=== PATIENT | female | born 1970 | race Caucasian/White ===

== ENCOUNTER → 2017-02-27 | Outpatient (CLI) | payer OTHER ==
--- NOTE | 2017-02-27 23:14 | MR ---
EXAMINATION TYPE: MR lumbar spine wo con DATE OF EXAM: 02/27/2017 COMPARISON: NONE HISTORY: Low back pain, Left leg/foot numbness TECHNIQUE: Multiplanar, multisequence images of the lumbar spine were acquired. The lumbar vertebra have normal alignment. Disc spaces are fairly well-maintained. There is slight de creased signal in the disks from L3 to S1 without significant loss of height. There is a small powder blender ior disc bulge at L4-5 and L5-S1 without compromise of the spinal canal. There is developmentally luci quate canal and no evidence of spinal stenosis. There is small posterior disc herniation at T11-12 wi thout compromise of the spinal canal. There is no paraspinal mass. Sacroiliac joints are intact. Ther e is no sign of a fracture. The neural foramina are fairly well-maintained. IMPRESSION: Mild spondylotic changes. No fracture. No spinal stenosis.
== END | disposition home or self-care (01) ==
LOC: RADMRIMAIN 13:08
PROVIDERS: ATTEND Family Medicine
DX: M47.816 Spondylosis without myelopathy or radiculopathy, lumbar region (principal)
CPT/HCPCS: 72148

== ENCOUNTER → 2017-11-17 | Outpatient (CLI) | payer OTHER ==
--- NOTE | 2017-11-17 19:32 | US ---
EXAMINATION TYPE: US pelvic complete DATE OF EXAM: 11/17/2017 COMPARISON: NONE CLINICAL HISTORY: R10.32 Left low quad pain, R10.2 Pelvic pain. TECHNIQUE: Transabdominal (TA). Date of LMP: 10/30/2017 EXAM MEASUREMENTS: Uterus: 11.9 x 5.8 x 6.2 cm Endometrial Stripe: 1.2 cm Right Ovary: 3.3 x 2.4 x 3.7 cm Left Ovary: 4.3 x 2.8 x 5.2 cm 1. Uterus: Anteverted wnl 2. Endometrium: wnl 3. Right Ovary: wnl 4. Left Ovary: 2 side by side cysts, one measures 2.7 x 2.2 x 2.2, and the second measures 2.4 x 1. 7 x 1.7cm. 6. Posterior cul-de-sac: no free fluid IMPRESSION: Normal uterus and endometrium. Simple left ovarian cysts.
== END | disposition home or self-care (01) ==
LOC: RADUSMAIN 18:00
PROVIDERS: ATTEND Physician Assistant Medical
DX: N83.202 Unspecified ovarian cyst, left side (principal)
CPT/HCPCS: 76856

== ENCOUNTER → 2018-01-12 | Outpatient (CLI) | payer OTHER ==
--- NOTE | 2018-01-14 12:48 | US ---
EXAMINATION TYPE: US pelvic complete DATE OF EXAM: 01/12/2018 COMPARISON: Ultrasound 11/17/2017 CLINICAL HISTORY: N83.20 Unspecified Ovarian Cysts. f/u to previous left ovarian cysts seen 8 weeks a go, bilateral pelvic pain today TECHNIQUE: TA. Transabdominal sonographic images of the pelvis were acquired. Date of LMP: 12/25/2017 EXAM MEASUREMENTS: Uterus: 10.7 x 5.5 x 5.5 cm Endometrial Stripe: 1.0 cm Right Ovary: 3.2 x 2.7 x 3.1 cm Left Ovary: 4.1 x 4.2 x 3.3 cm 1. Uterus: Anteverted wnl 2. Endometrium: wnl 3. Right Ovary: 2.5cm cyst seen. This is newly identified. 4. Left Ovary: 2.8cm cyst seen. This appears less complex and smaller than the comparison. 5. Bilateral Adnexa: wnl 6. Posterior cul-de-sac: wnl IMPRESSION: 1. Bilateral simple ovarian cysts. Follow-up following the next normal menstrual period or 6 weeks is recommended to document resolution.
== END | disposition home or self-care (01) ==
LOC: RADUSMAIN 17:45
PROVIDERS: ATTEND Family Medicine
DX: N83.292 Other ovarian cyst, left side (principal); N83.291 Other ovarian cyst, right side
CPT/HCPCS: 76856

== ENCOUNTER 2019-11-24 20:54 | Inpatient (IN) | payer OTHER ==
[2019-11-24 20:59] LABS: Glucose,Whole Blood 105 mg/dL (75-99)
--- NOTE | 2019-11-24 21:13 | ED ---
General Adult HPI - General Source: patient, EMS Mode of arrival: EMS <MaryJoshSeveriano D - Last Filed: 11/24/19 23:07> <Aye Almaraz P - Last Filed: 11/25/19 04:24> - General Chief complaint: Abdominal Pain Stated complaint: Abd Pain, Low BP Time Seen by Provider: 11/24/19 21:07 - History of Present Illness Initial comments: Dictation was produced using [employer] [place] dictation software. please excuse any grammatical, word or spelling errors. This patient was cared for during a federal and state declared state of emergency secondary to Covid 19 Chief Complaint: 49-year-old female in no known comorbidities presents with a bdominal pain and hypotension. History of Present Illness: 49-year-old female she denies any comorbidities. Patient states she was getting into her truck approximately one hour prior to arrival when all of a sudden she felt sharp epigastric abdominal pain. Patient states that the pain did not radiate to her back. She tried to step outside walk around and see if her symptoms would go away. Symptoms did not improve. She called EMS. EMS checked her blood pressures found to be low with multiple measurements reading in the 60-70 range for systolic measurement. She was given multiple boluses of fluid with improvement of blood pressure. Patient reports she has a history of gastritis. She states that the pain is epigastric. Denies any nausea or vomiting. She is never express anything like this in the past. The ROS documented in this emergency department record has been reviewed and confirmed by me. Those systems with pertinent positive or negative responses have been documented in the HPI. All other systems are other negative and/or noncontributory. PHYSICAL EXAM: General Impression: Alert and oriented x3, not in acute distress HEENT: Normocephalic atraumatic, extra-ocular movements intact, pupils equal and reactive to light bilaterally, mucous membranes moist. Cardiovascular: Heart regular rate and rhythm Chest: Able to complete full sentences, no retractions, no tachypnea Abdomen: abdomen soft, mild tenderness to palpation of the epigastric area, non- distended, no organomegaly Musculoskeletal: Pulses present and equal in all extremities, no peripheral edema Motor: no focal deficits noted Neurological: CN II-XII grossly intact, no focal motor or sensory deficits noted Skin: Intact with no visualized rashes Psych: Normal affect and mood ED course: 49-year-old female presents with abdominal pain and hypotension. Signs upon arrival showed blood pressure 120/76, rest of vital signs within acceptable limits. She did receive 2 L of normal saline per EMS. Patient's belly is for the most part soft. No evidence of peritonitis. Her symptoms appear to be only in the epigastric area. EKGs benign. Laboratory evaluation obtained. CBC is unremarkable. Mild anemia of 10.5. Coag panel is negative. Metabolic panel shows mild non-gap acidosis. Elevated liver enzymes concerning for alcoholism. Patient was questioned about alcohol habits. She states she's been drinking a lot more recently for social reasons. Pending radiology read for CT of the abdomen and pelvis. Patient care of be signed out to Dr. Almaraz. I believe that patient's symptoms are likely secondary to gastritis. Patient given a GI cocktail. EKG interpretation: Ventricular rate 40, sinus bradycardia,. 132, QRS 90, QTC 402. No ND prolongation, no QTC prolongation, no ST or T-wave changes noted. No old EKG for comparison. Overall, this EKG is unremarkable (Severiano Hernandez) - Related Data Allergies Allergy/AdvReac Type Severity Reaction Status Date / Time No Known Allergies Allergy Verified 11/24/19 21:04 Review of Systems ROS Other: All systems not noted in ROS Statement are negative. <Sveeriano Hernandez - Last Filed: 11/24/19 23:07> ROS Other: All systems not noted in ROS Statement are negative. <Aye Almaraz - Last Filed: 11/25/19 04:24> ROS Statement: Those systems with pertinent positive or pertinent negative responses have been documented in the HPI. Past Medical History Past Medical History: GERD/Reflux, Thyroid Disorder History of Any Multi-Drug Resistant Organisms: None Reported Past Surgical History: No Surgical Hx Reported Past Psychological History: No Psychological Hx Reported Smoking Status: Never smoker Past Alcohol Use History: Occasional Past Drug Use History: None Reported <Severiano Hernandez - Last Filed: 11/24/19 23:07> Course Vital Signs 11/24/19 11/24/19 11/24/19 20:59 21:06 21:11 Temperature 97.6 F Pulse Rate 48 L 73 59 L Pulse Rate [ Apical] Respiratory 16 14 14 Rate Blood Pressure 127/72 120/76 112/73 O2 Sat by Pulse 100 100 100 Oximetry 11/24/19 11/24/19 11/24/19 21:32 22:12 23:14 Temperature 98.3 F 98.1 F Pulse Rate 73 66 60 Pulse Rate [ Apical] Respiratory 14 14 18 Rate Blood Pressure 112/73 117/75 109/69 O2 Sat by Pulse 100 100 95 Oximetry 11/25/19 11/25/19 11/25/19 00:00 00:02 00:07 Temperature Pulse Rate 40 L 60 Pulse Rate [ 52 L Apical] Respiratory 26 H 24 Rate Blood Pressure 99/83 91/62 O2 Sat by Pulse 100 100 Oximetry 11/25/19 11/25/19 11/25/19 00:30 00:38 00:49 Temperature Pulse Rate 45 L 43 L 41 L Pulse Rate [ Apical] Respiratory 26 H 14 18 Rate Blood Pressure 98/83 82/57 78/52 O2 Sat by Pulse 100 96 97 Oximetry 11/25/19 11/25/19 11/25/19 01:02 01:15 01:30 Temperature Pulse Rate 40 L 44 L 38 L Pulse Rate [ Apical] Respiratory 16 18 14 Rate Blood Pressure 77/54 77/51 79/53 O2 Sat by Pulse 98 94 L 100 Oximetry 11/25/19 11/25/19 11/25/19 01:39 01:43 01:48 Temperature Pulse Rate 37 L 36 L 36 L Pulse Rate [ Apical] Respiratory 12 16 12 Rate Blood Pressure 88/58 99/59 109/67 O2 Sat by Pulse 100 100 97 Oximetry 11/25/19 11/25/19 11/25/19 02:05 02:11 02:20 Temperature Pulse Rate 38 L 68 68 Pulse Rate [ Apical] Respiratory 16 16 16 Rate Blood Pressure 104/48 121/66 139/77 O2 Sat by Pulse 96 100 98 Oximetry 11/25/19 11/25/19 11/25/19 02:30 02:35 02:40 Temperature Pulse Rate 75 70 70 Pulse Rate [ Apical] Respiratory 16 15 12 Rate Blood Pressure 127/75 147/87 90/48 O2 Sat by Pulse 98 98 98 Oximetry 11/25/19 11/25/19 11/25/19 02:45 02:52 03:09 Temperature 98.5 F Pulse Rate 77 70 66 Pulse Rate [ Apical] Respiratory 14 14 16 Rate Blood Pressure 91/70 121/61 114/58 O2 Sat by Pulse 98 98 97 Oximetry 11/25/19 11/25/19 11/25/19 03:26 03:34 03:40 Temperature Pulse Rate 69 67 66 Pulse Rate [ Apical] Respiratory 13 20 16 Rate Blood Pressure 154/79 139/84 139/87 O2 Sat by Pulse 100 100 100 Oximetry 11/25/19 11/25/19 03:47 03:59 Temperature Pulse Rate 64 73 Pulse Rate [ Apical] Respiratory 16 16 Rate Blood Pressure 144/74 146/74 O2 Sat by Pulse 100 96 Oximetry Procedures - Central Line Placement Right IJ Consent Obtained: verbal consent Patient Placed on Monitor/Pulse Ox: Yes MD Prep: mask, gown, gloves Central Line Prep: Chlorhexidine scrub Local Anesthesia Used: Lidocaine 1% Amount of Anesthesia Used (mls): 3 Ultrasound Used for Placement: Yes Central Line Lumen Inserted: triple Bloods Obtained for Lab: Yes Central Line Position: good blood return, all ports aspirated, flushed, capped, sutured in place with nylon Dressing Applied: Tegaderm Post Procedure X-Ray: tip of catheter in good position Patient Tolerated Procedure: well Complications: none <Aye Almaraz P - Last Filed: 11/25/19 04:24> Medical Decision Making - Lab Data Result diagrams: 11/24/19 21:11 11/24/19 21:11 <Severiano Hernandez D - Last Filed: 11/24/19 23:07> - Lab Data Result diagrams: 11/25/19 03:45 11/24/19 21:11 <Aye Almaraz P - Last Filed: 11/25/19 04:24> - Medical Decision Making Patient care was endorsed to me at 11:30 PM, patient had presented hypotensive with epigastric abdominal and chest pain. Patient was stable throughout her stay in the ER, the time of discharge computed tomography scan and analysis were pending. These resulted with no acute findings however at 12:05 AM patient had another episode of severe pain she became pale diaphoretic hypotensive and bradycardic. Repeat EKG was obtained sinus bradycardia with no change in morphology from EKG obtained earlier in the day. No acute ischemic findings. EKG was obtained at 12:07 AM, rate is 52, rhythm is sinus bradycardia, normal axis, normal intervals no acute ST elevations or depressions or evidence of acute ischemia or infarction. Given this acute change in patient's condition IV fluids and morphine were ordered, CT for pulmonary embolism was ordered CT resulted with no evidence of acute pathology Repeat labs were ordered Patient remained hypotensive despite 1 L fluid bolus and a small dose of fentanyl to manage her pain, at this time Levophed was initiated due to hypotension of unknown origin Patient provided verbal consent for a central line Despite Levaquin fed the patient remained bradycardic with heart rates dipping to the mid 30s, a single dose of atropine was given with a heart rate improvement in the 80s, blood pressure also improved significantly and leave a fed was discontinued At this time I suspect that the patient's bradycardia and hypertension are due to vagal stimulation secondary to pain however I will plan to admit the patient for further monitoring (Aye Almaraz) - Lab Data Lab Results 11/24/19 11/24/19 11/24/19 Range/Units 20:57 21:11 21:11 WBC 6.4 (3.8-10.6) k/uL RBC 3.47 L (3.80-5.40) m/uL Hgb 10.5 L (11.4-16.0) gm/dL Hct 31.8 L (34.0-46.0) % MCV 91.7 (80.0-100.0) fL MCH 30.1 (25.0-35.0) pg MCHC 32.9 (31.0-37.0) g/dL RDW 12.9 (11.5-15.5) % Plt Count 221 (150-450) k/uL Neutrophils % 55 % Lymphocytes % 33 % Monocytes % 7 % Eosinophils % 1 % Basophils % 1 % Neutrophils # 3.5 (1.3-7.7) k/uL Lymphocytes # 2.1 (1.0-4.8) k/uL Monocytes # 0.4 (0-1.0) k/uL Eosinophils # 0.1 (0-0.7) k/uL Basophils # 0.0 (0-0.2) k/uL PT 10.2 (9.0-12.0) sec INR 1.0 (<1.2) APTT 21.0 L (22.0-30.0) sec Sodium (137-145) mmol/L Potassium (3.5-5.1) mmol/L Chloride (98-107) mmol/L Carbon Dioxide (22-30) mmol/L Anion Gap mmol/L BUN (7-17) mg/dL Creatinine (0.52-1.04) mg/dL Est GFR (CKD-EPI)AfAm (>60 ml/min/1.73 sqM) Est GFR (CKD-EPI)NonAf (>60 ml/min/1.73 sqM) Glucose (74-99) mg/dL POC Glucose (mg/dL) 105 H (75-99) mg/dL POC Glu Certified Phlebotomy Technician ID Haylie Santiago Plasma Lactic Acid Boyd (0.7-2.0) mmol/L Calcium (8.4-10.2) mg/dL Total Bilirubin (0.2-1.3) mg/dL AST (14-36) U/L ALT (4-34) U/L Alkaline Phosphatase (38-126) U/L Troponin I (0.000-0.034) ng/mL NT-Pro-B Natriuret Pep pg/mL Total Protein (6.3-8.2) g/dL Albumin (3.5-5.0) g/dL Lipase (23-300) U/L Urine Color Urine Appearance (Clear) Urine pH (5.0-8.0) Ur Specific [place] (1.001-1.035) Urine Protein (Negative) Urine Glucose (UA) (Negative) Urine Ketones (Negative) Urine Blood (Negative) Urine Nitrite (Negative) Urine Bilirubin (Negative) Urine Urobilinogen (<2.0) mg/dL Ur Leukocyte Esterase (Negative) Urine HCG, Qual (Not Detectd) 11/24/19 11/24/19 11/24/19 Range/Units 21:11 21:11 21:11 WBC (3.8-10.6) k/uL RBC (3.80-5.40) m/uL Hgb (11.4-16.0) gm/dL Hct (34.0-46.0) % MCV (80.0-100.0) fL MCH (25.0-35.0) pg MCHC (31.0-37.0) g/dL RDW (11.5-15.5) % Plt Count (150-450) k/uL Neutrophils % % Lymphocytes % % Monocytes % % Eosinophils % % Basophils % % Neutrophils # (1.3-7.7) k/uL Lymphocytes # (1.0-4.8) k/uL Monocytes # (0-1.0) k/uL Eosinophils # (0-0.7) k/uL Basophils # (0-0.2) k/uL PT (9.0-12.0) sec INR (<1.2) APTT (22.0-30.0) sec Sodium 137 (137-145) mmol/L Potassium 4.0 (3.5-5.1) mmol/L Chloride 112 H (98-107) mmol/L Carbon Dioxide 20 L (22-30) mmol/L Anion Gap 5 mmol/L BUN 14 (7-17) mg/dL Creatinine 0.58 (0.52-1.04) mg/dL Est GFR (CKD-EPI)AfAm >90 (>60 ml/min/1.73 sqM) Est GFR (CKD-EPI)NonAf >90 (>60 ml/min/1.73 sqM) Glucose 118 H (74-99) mg/dL POC Glucose (mg/dL) (75-99) mg/dL POC Glu Certified Phlebotomy Technician ID Plasma Lactic Acid Boyd 1.2 (0.7-2.0) mmol/L Calcium 7.4 L (8.4-10.2) mg/dL Total Bilirubin 0.4 (0.2-1.3) mg/dL AST 90 H (14-36) U/L ALT 53 H (4-34) U/L Alkaline Phosphatase 113 (38-126) U/L Troponin I <0.012 (0.000-0.034) ng/mL NT-Pro-B Natriuret Pep pg/mL Total Protein 5.1 L (6.3-8.2) g/dL Albumin 2.9 L (3.5-5.0) g/dL Lipase 239 (23-300) U/L Urine Color Urine Appearance (Clear) Urine pH (5.0-8.0) Ur Specific [place] (1.001-1.035) Urine Protein (Negative) Urine Glucose (UA) (Negative) Urine Ketones (Negative) Urine Blood (Negative) Urine Nitrite (Negative) Urine Bilirubin (Negative) Urine Urobilinogen (<2.0) mg/dL Ur Leukocyte Esterase (Negative) Urine HCG, Qual (Not Detectd) 11/24/19 11/24/19 11/25/19 Range/Units 23:14 23:14 03:45 WBC 9.7 (3.8-10.6) k/uL RBC 4.00 (3.80-5.40) m/uL Hgb 12.1 (11.4-16.0) gm/dL Hct 36.9 (34.0-46.0) % MCV 92.3 (80.0-100.0) fL MCH 30.2 (25.0-35.0) pg MCHC 32.7 (31.0-37.0) g/dL RDW 13.0 (11.5-15.5) % Plt Count 277 (150-450) k/uL Neutrophils % 86 % Lymphocytes % 8 % Monocytes % 4 % Eosinophils % 0 % Basophils % 0 % Neutrophils # 8.3 H (1.3-7.7) k/uL Lymphocytes # 0.8 L (1.0-4.8) k/uL Monocytes # 0.4 (0-1.0) k/uL Eosinophils # 0.0 (0-0.7) k/uL Basophils # 0.0 (0-0.2) k/uL PT (9.0-12.0) sec INR (<1.2) APTT (22.0-30.0) sec Sodium (137-145) mmol/L Potassium (3.5-5.1) mmol/L Chloride (98-107) mmol/L Carbon Dioxide (22-30) mmol/L Anion Gap mmol/L BUN (7-17) mg/dL Creatinine (0.52-1.04) mg/dL Est GFR (CKD-EPI)AfAm (>60 ml/min/1.73 sqM) Est GFR (CKD-EPI)NonAf (>60 ml/min/1.73 sqM) Glucose (74-99) mg/dL POC Glucose (mg/dL) (75-99) mg/dL POC Glu Certified Phlebotomy Technician ID Plasma Lactic Acid Boyd (0.7-2.0) mmol/L Calcium (8.4-10.2) mg/dL Total Bilirubin (0.2-1.3) mg/dL AST (14-36) U/L ALT (4-34) U/L Alkaline Phosphatase (38-126) U/L Troponin I (0.000-0.034) ng/mL NT-Pro-B Natriuret Pep pg/mL Total Protein (6.3-8.2) g/dL Albumin (3.5-5.0) g/dL Lipase (23-300) U/L Urine Color Yellow Urine Appearance Clear (Clear) Urine pH 6.0 (5.0-8.0) Ur Specific [place] >1.050 H (1.001-1.035) Urine Protein Negative (Negative) Urine Glucose (UA) Negative (Negative) Urine Ketones Negative (Negative) Urine Blood Negative (Negative) Urine Nitrite Negative (Negative) Urine Bilirubin Negative (Negative) Urine Urobilinogen 2.0 (<2.0) mg/dL Ur Leukocyte Esterase Negative (Negative) Urine HCG, Qual Not Detected (Not Detectd) 11/25/19 Range/Units 03:45 WBC (3.8-10.6) k/uL RBC (3.80-5.40) m/uL Hgb (11.4-16.0) gm/dL Hct (34.0-46.0) % MCV (80.0-100.0) fL MCH (25.0-35.0) pg MCHC (31.0-37.0) g/dL RDW (11.5-15.5) % Plt Count (150-450) k/uL Neutrophils % % Lymphocytes % % Monocytes % % Eosinophils % % Basophils % % Neutrophils # (1.3-7.7) k/uL Lymphocytes # (1.0-4.8) k/uL Monocytes # (0-1.0) k/uL Eosinophils # (0-0.7) k/uL Basophils # (0-0.2) k/uL PT (9.0-12.0) sec INR (<1.2) APTT (22.0-30.0) sec Sodium (137-145) mmol/L Potassium (3.5-5.1) mmol/L Chloride (98-107) mmol/L Carbon Dioxide (22-30) mmol/L Anion Gap mmol/L BUN (7-17) mg/dL Creatinine (0.52-1.04) mg/dL Est GFR (CKD-EPI)AfAm (>60 ml/min/1.73 sqM) Est GFR (CKD-EPI)NonAf (>60 ml/min/1.73 sqM) Glucose (74-99) mg/dL POC Glucose (mg/dL) (75-99) mg/dL POC Glu Certified Phlebotomy Technician ID Plasma Lactic Acid Boyd (0.7-2.0) mmol/L Calcium (8.4-10.2) mg/dL Total Bilirubin (0.2-1.3) mg/dL AST (14-36) U/L ALT (4-34) U/L Alkaline Phosphatase (38-126) U/L Troponin I (0.000-0.034) ng/mL NT-Pro-B Natriuret Pep 279 pg/mL Total Protein (6.3-8.2) g/dL Albumin (3.5-5.0) g/dL Lipase (23-300) U/L Urine Color Urine Appearance (Clear) Urine pH (5.0-8.0) Ur Specific [place] (1.001-1.035) Urine Protein (Negative) Urine Glucose (UA) (Negative) Urine Ketones (Negative) Urine Blood (Negative) Urine Nitrite (Negative) Urine Bilirubin (Negative) Urine Urobilinogen (<2.0) mg/dL Ur Leukocyte Esterase (Negative) Urine HCG, Qual (Not Detectd) Critical Care Time Critical Care Time: Yes Total Critical Care Time: 75 <Aye Almaraz P - Last Filed: 11/25/19 04:24> Critical Care Time: Critical Care Time 45 Critical care time was exclusive of separately billable procedures and treating other patients and teaching time. Critical care was necessary to treat or prevent imminent or life-threatening deterioration. Given the critical condition in which the patient arrived, the patient was immediately assessed by myself and the nurse, and cardiac monitoring initiated due to the potential for rapid decompensation of the patient's clinical condition. During the course of the patients stay, I spent a considerable amount of time at the bedside performing serial re-evaluations of the patient's hemodynamic and clinical status because of the recognized potential threat to life or limb in this condition. I then had a chance to review not only all of the available current laboratory and radiographic studies obtained today, but I also reviewed old records available to me at the time. Additionally, any ancillary information available including legislators records were reviewed. Sequential vital signs were obtained. (Aye Almaraz) Disposition <Severiano Hernandez - Last Filed: 11/24/19 23:07> Is patient prescribed a controlled substance at d/c from ED?: No <Aye Almaraz - Last Filed: 11/25/19 04:24> Clinical Impression: Hypotension, Bradycardia, Epigastric abdominal pain Disposition: ADMITTED IP TO THIS HOSP Condition: Serious Referrals: Manoj Mendez DO [Primary Care Provider] - 1-2 days
[2019-11-24 21:17] LABS: Basophils % (A) 1 %; Eosinophils # (A) 0.1 k/uL (0-0.7); Eosinophils % (A) 1 %; HCT 31.8 % (34.0-46.0); HGB 10.5 gm/dL (11.4-16.0); Lymphocytes # (A) 2.1 k/uL (1.0-4.8); Lymphocytes % (A) 33 %; MCH 30.1 pg (25.0-35.0); MCHC 32.9 g/dL (31.0-37.0); MCV 91.7 fL (80.0-100.0); Mean Platelet Volume 7.5; Monocytes # (A) 0.4 k/uL (0-1.0); Monocytes % (A) 7 %; Neutrophils # (A) 3.5 k/uL (1.3-7.7); Neutrophils % (A) 55 %; Platelet Count 221 k/uL (150-450); RBC 3.47 m/uL (3.80-5.40); RDW 12.9 % (11.5-15.5); WBC 6.4 k/uL (3.8-10.6)
--- NOTE | 2019-11-24 21:24 | XR ---
EXAMINATION TYPE: XR KUB DATE OF EXAM: 11/24/2019 COMPARISON: NONE HISTORY: Abdominal pain TECHNIQUE: Single view upright FINDINGS: There is no sign of intestinal obstruction or pneumoperitoneum. Fecal pattern is normal. Th ere are no pathologic calcifications over the kidneys. Lung bases are clear. IMPRESSION: Nonacute abdomen.
[2019-11-24 21:26] LABS: ALT 53 U/L (4-34); AST 90 U/L (14-36); African American GFR (CKD) >90 (>60 ml/min/1.73 sqM); Albumin 2.9 g/dL (3.5-5.0); Alkaline Phosphatase 113 U/L (38-126); Anion Gap 5 mmol/L; Blood Urea Nitrogen 14 mg/dL (7-17); Calcium 7.4 mg/dL (8.4-10.2); Carbon Dioxide 20 mmol/L (22-30); Chloride 112 mmol/L (98-107); Glucose 118 mg/dL (74-99); Lipase 239 U/L (23-300); Non-African American GFR(CKD) >90 (>60 ml/min/1.73 sqM); Sodium 137 mmol/L (137-145); Total Bilirubin 0.4 mg/dL (0.2-1.3); Total Protein 5.1 g/dL (6.3-8.2)
[2019-11-24 21:37] LABS: Prothrombin Time 10.2 sec (9.0-12.0)
[2019-11-24] MEDS ORDERED: PANTOPRAZOLE 40 MG/10 ML VIAL IVP ONE (22:51)
[2019-11-24] MEDS ORDERED: MAG HYDROX/AL HYDROX/SIMETH 30 ML, HYOSCYAMINE ELIXIR 10 ML, LIDOCAINE VISCOUS 2% 10 ML PO STA ×3 (22:53)
--- NOTE | 2019-11-24 23:22 | CT ---
EXAMINATION TYPE: CT abdomen pelvis w con DATE OF EXAM: 11/24/2019 COMPARISON: None HISTORY: Abdomen pain CT DLP: 1229.4 mGycm Automated exposure control for dose reduction was used. CONTRAST: Performed with IV Contrast, patient injected with 100 mL of Isovue 300. Images were obtained from the diaphragm to the floor the pelvis with IV contrast. There is some mild atelectasis at the posterior lung bases. There is no pleural effusion. There is no pericardial effusion. Heart size is normal. There is mild periportal edema. The bile ducts are not dilated. Gallbladder appears normal. Spleen ap pears normal. Stomach appears normal. There is no evidence of pancreatic mass. There is no adrenal mass. Kidneys show satisfactory contrast opacification. There is no hydronephrosi s. Ureters are not dilated. Appendix is lateral and appears normal. There is no retroperitoneal adeno cameron. Bladder distends smoothly. Uterus is anteverted. There is no inguinal hernia. There is no free fluid in the pelvis. There is no evidence of a pelvic mass. Lumbar vertebra have normal alignment. D isc spaces are fairly normal. There is no compression fracture. The bony pelvis is intact. Hip joints appear intact. The delayed images show normal renal excretion. There is no mesenteric edema. There i s no ascites or free air. There is no bowel obstruction. IMPRESSION: There is mild periportal edema in the liver that is nonspecific and can be associated with hepatitis. No dilated ducts. Normal appendix. Mild subsegmental atelectasis at the posterior lung bases.
[2019-11-24 23:28] LABS: Appearance,Urine Clear (Clear); Bilirubin,Urine Negative (Negative); Blood,Urine Negative (Negative); Color,Urine Yellow; Glucose,Urine (UA) Negative (Negative); Ketones,Urine Negative (Negative); Leukocyte Esterase,Urine Negative (Negative); Nitrite,Urine Negative (Negative); Protein,Urine Negative (Negative)
[2019-11-25 00:02] LABS: Specific Gravity,Urine >1.050 (1.001-1.035)
[2019-11-25] MEDS ORDERED: SODIUM CHLORIDE 0.9% 1,000 ML IV ONE (00:31)
[2019-11-25] MEDS ORDERED: fentaNYL (PF) 50 MCG/ML 2 ML AMP IVP STA (00:32)
[2019-11-25] MEDS: SODIUM CHLORIDE 0.9% 1,000 ML IV SCH ×3 (01:00→16:57)
[2019-11-25] MEDS: NOREPINEPHRINE 4 MG in SODIUM CHLORIDE 0.9% 250 ML IV SCH ×2 (01:35→16:59)
--- NOTE | 2019-11-25 01:57 | CT ---
EXAMINATION TYPE: CT chest angio for PE DATE OF EXAM: 11/25/2019 COMPARISON: None HISTORY: R/O PE, chest pain , hypotension CT DLP: 334.7 mGycm Automated exposure control for dose reduction was used. CONTRAST: Performed with IV Contrast, patient injected with 60 mL of Isovue 370. There are 3-D post processed images. There is some patchy interstitial infiltrate and atelectasis in the posterior lung red. There is n o pleural effusion. There is no pericardial effusion. There are no hilar masses. There is no mediasti nal adenopathy. Thoracic aorta is intact. There is no aneurysm. There is normal contrast opacification of the pulmonary arteries. There are no filling defects. Upper abdominal soft tissues are intact. Heart appears fairly normal. Thoracic spine is intact. There is n o compression fractures. Sternum is intact. The ribs appear intact. IMPRESSION: No evidence of pulmonary embolism. Mild interstitial infiltrates and subsegmental atelectasis in the posterior lung red.
[2019-11-25] MEDS ORDERED: ATROPINE SULFATE 0.1 MG/ML 10ML SYRINGE IV STA (02:05)
[2019-11-25] MEDS ORDERED: HYDROCORTISONE SUCCINATE 100 MG/2 ML VIAL IV STA (02:45)
[2019-11-25 03:57] LABS: Basophils % (A) 0 %; Eosinophils % (A) 0 %; HCT 36.9 % (34.0-46.0); HGB 12.1 gm/dL (11.4-16.0); Lymphocytes # (A) 0.8 k/uL (1.0-4.8); Lymphocytes % (A) 8 %; MCH 30.2 pg (25.0-35.0); MCHC 32.7 g/dL (31.0-37.0); MCV 92.3 fL (80.0-100.0); Mean Platelet Volume 7.2; Monocytes # (A) 0.4 k/uL (0-1.0); Monocytes % (A) 4 %; Neutrophils # (A) 8.3 k/uL (1.3-7.7); Neutrophils % (A) 86 %; Platelet Count 277 k/uL (150-450); WBC 9.7 k/uL (3.8-10.6)
[2019-11-25] MEDS ORDERED: NALOXONE 0.4 MG/ML 1 ML VIAL IV PRN (04:20)
[2019-11-25] MEDS ORDERED: IBUPROFEN 400 MG TAB PO PRN (04:20)
--- NOTE | 2019-11-25 04:29 | XR ---
EXAMINATION TYPE: XR chest 1V DATE OF EXAM: 11/25/2019 COMPARISON: NONE HISTORY: Check line placement TECHNIQUE: Single view FINDINGS: There is right jugular catheter with the tip in the right atrium. There is no heart failure nor confluent pneumonic infiltrate. Costophrenic angles are clear. There are chest leads. IMPRESSION: No active cardiopulmonary disease.
[2019-11-25 04:37] LABS: Amphetamine Screen,Urine Detected (NotDetected); Barbiturate Screen,Urine Not Detected (NotDetected); Benzodiazepines Screen,Urine Not Detected (NotDetected); Cocaine Screen,Urine Not Detected (NotDetected); Methadone Screen, Urine Not Detected (NotDetected); Opiate Screen,Urine Not Detected (NotDetected); Oxycodone Screen, Urine Not Detected (NotDetected); Phencyclidine Screen,Urine Not Detected (NotDetected); Tricyclic Antidepressant,Urine Not Detected (NotDetected); Urn Cannabinoid Scrn Not Detected (NotDetected)
[2019-11-25 05:12] LABS: Glucose,Whole Blood 130 mg/dL (75-99)
[2019-11-25 05:55] LABS: African American GFR (CKD) >90 (>60 ml/min/1.73 sqM); Anion Gap 5 mmol/L; Blood Urea Nitrogen 8 mg/dL (7-17); Calcium 7.9 mg/dL (8.4-10.2); Carbon Dioxide 20 mmol/L (22-30); Chloride 110 mmol/L (98-107); Glucose 138 mg/dL (74-99); Non-African American GFR(CKD) >90 (>60 ml/min/1.73 sqM); Sodium 135 mmol/L (137-145)
[2019-11-25] MEDS: MORPHINE SULFATE 4 MG/ML SYRINGE IV PRN ×3 (06:25→23:43)
[2019-11-25] MEDS ORDERED: PANTOPRAZOLE 40 MG/10 ML VIAL IV SCH (09:00)
[2019-11-25] MEDS: PANTOPRAZOLE 40 MG/10 ML VIAL IV SCH ×2 (09:20→20:44)
[2019-11-25 09:47] LABS: ALT 253 U/L (4-34); AST 345 U/L (14-36); Alkaline Phosphatase 166 U/L (38-126)
--- NOTE | 2019-11-25 10:59 | ECHOF ---
Referral Reason:bradycardia, hypotension MEASUREMENTS -------- HEIGHT: 162.6 cm WEIGHT: 81.6 kg BP: RVIDd: 3.4 cm (< 3.3) IVSd: 1.1 cm (0.6 - 1.1) LVIDd: 5.7 cm (3.9 - 5.3) LVPWd: 0.9 cm (0.6 - 1.1) EDV(Teich): 159 ml IVSs: 1.5 cm LVIDs: 4.2 cm LVPWs: 1.3 cm %IVS Thck: 36 % ESV(Teich): 77 ml EF(Teich): 52 % %FS: 27 % SV(Teich): 82 ml LA Diam: 4.7 cm (2.7 - 3.8) LALs A4C: 5.4 cm LAAs A4C: 19.9 cm LAESV A-L A4C: 62 ml LAESV MOD A4C: 59 ml LALs A2C: 5.4 cm LAAs A2C: 22.3 cm LAESV A-L A2C: 79 ml LAESV MOD A2C: 73 ml LAESV(A-L): 70 ml LAESV Index (A-L): 37.52 ml/m Ao Diam: 3.0 cm (2.0 - 3.7) AV Cusp: 2.2 cm (1.5 - 2.6) LA Diam: 3.9 cm (2.7 - 3.8) MV EXCURSION: 16.659 mm (> 18.000) MV EF SLOPE: 106 mm/s (70 - 150) EPSS: 0.8 cm MV E [place]: 0.93 m/s MV DecT: 243 ms MV Dec [place]: 3.8 m/s MV A [place]: 0.64 m/s MV E/A Ratio: 1.45 MV PHT: 71 ms TR Vmax: 1.95 m/s TR maxP.16 mmHg RAP: 5.00 mmHg RVSP: 20.16 mmHg FINDINGS -------- Sinus rhythm. This was a technically good study. LV size, wall thickness and systolic function are normal, with an EF greater than 55%. The left naif tricular size is normal. The right ventricle is normal in size. The left atrium is moderately dilated. LA is moderately dilated 34-39 ml/m2 The right atrial size is normal. The aortic valve is trileaflet, and appears structurally normal. No aortic stenosis or regurgitation. Mild mitral regurgitation is present. Mild tricuspid regurgitation present. Right ventricular systolic pressure is normal at < 35 mmHg. There is no pulmonic regurgitation present. The aortic root size is normal. There is no pericardial effusion. CONCLUSIONS -------- 1. LV size, wall thickness and systolic function are normal, with an EF greater than 55%. 2. The left ventricular size is normal. 3. The right ventricle is normal in size. 4. The left atrium is moderately dilated. 5. LA is moderately dilated 34-39 ml/m2 6. The right atrial size is normal. 7. Mild mitral regurgitation is present. 8. Mild tricuspid regurgitation present. BENCH EXAMINER: Suzie Burns RDCS
[2019-11-25 11:49] LABS: Glucose,Whole Blood 105 mg/dL (75-99)
--- NOTE | 2019-11-25 13:08 | CONS ---
CONSULTATION Mrs. Mota is a 49-year-old female with no cardiac history who yesterday had an episode of severe epigastric discomfort that persisted for a bit and subsequently became quite diaphoretic, dizzy and nauseated without any vomiting. She came into the emergency room and was noted to be hypotensive and bradycardiac. Usually she runs a blood pressure in the 110s according to her. She is active physically, has no exertional chest pain or dyspnea. She denies any dizziness or palpitation on a regular basis. No PND, orthopnea. She continues to have some epigastric discomfort. She has no diarrhea, no fever and no GI bleeding. She had prior history of gastritis. She is usually active without any limitation. has no cardiac history. She has no history of hypertension, hyperlipidemia, or diabetes. She is a nonsmoker. Her medications at home include omeprazole for the history of gastroesophageal reflux disease and allergy pills. She has pain medication she takes occasionally because of back discomfort. She drinks 1 caffeinated beverage a day and on this weekend and had 4 beers, which is more than she does usually. REVIEW OF SYSTEMS: RESPIRATORY SYSTEM: She has no prior history of asthma, but no recent exacerbation. No cough or fever. GI SYSTEM: No recent GI bleeding. No peptic ulcer disease. She has history of gastroesophageal disease. SYSTEM: No dysuria or hematuria. NERVOUS SYSTEM: No stroke or seizure. PHYSICAL EXAMINATION: She is a 49-year-old female, alert, oriented, in no apparent distress. Blood pressure 117/70 with a heart rate in the 60s. HEAD: Normocephalic. EYES: Sclerae nonicteric. NECK: Good upstroke, no bruit, no venous distention, clear to auscultation. HEART: Regular rhythm, S1, S2. No S3. No S4. No murmur or rub. ABDOMEN: Soft, mild epigastric tenderness, no rebound. EXTREMITIES: No edema, intact pulses. LAB DATA: Revealed BUN and creatinine of 8 and 0.49, potassium 4.0, hemoglobin of 12.1. Her troponin less than 0.012. NT proBNP of 279. Her EKG revealed a sinus mechanism, rate of 52, normal axis and intervals. No acute changes. Chest CT angiogram revealed no evidence of pulmonary embolism. IMPRESSION: 1. Epigastric discomfort, appears to be gastritis, could be related to alcohol intake. 2. Hypertension and bradycardia, most likely vasovagal abnormalities related to the pain. 3. History of gastroesophageal for reflux disease. RECOMMENDATION: From the cardiac standpoint, will continue IV fluid, I will obtain echocardiogram with Doppler. At this time, I see no evidence of active cardiac issues. Depending on her progress, further recommendation will be made. Thank you for this consult. Will follow with you. AYUSH / MARYN: [id number] /
--- NOTE | 2019-11-25 14:10 | P.CNPUL ---
History of Present Illness Consult date: 11/25/19 Requesting physician: Jackie Faust Chief complaint: Abdominal pain History of present illness: This is a 49-year-old female with history of GERD, presented to the ER yesterday with recurrent episodes of severe epigastric discomfort associated with significant diaphoresis, dizziness, nausea, and profound bradycardia with hypotension. Patient was seen in the ER with these symptoms, and while in the ER she had recurrent episodes of severe epigastric pain associated with bradycardia and hypotension requiring fluid boluses, and she required a central line placement, admitted to the ICU, and this consult was initiated. Patient is presently asymptomatic except for some vague discomfort in the epigastric region, no further episodes of bradycardia while in the ICU. Blood pressure remains stable. Seen already by cardiology on consultation, and her echocardiogram was basically unremarkable. Patient was felt to have most likely recurrent episodes of vasovagal episodes associated with abdominal pain, hypotension, and bradycardia. CT angiogram of the chest showed no evidence of pulmonary embolism. CT of the abdomen and pelvis showed mild periportal edema in the liver, otherwise unremarkable. Labs including CBC, basic metabolic profile are normal, however her liver enzymes were noted be elevated with AST of 345, ALT of 53 and alkaline phosphatase of 166. Review of Systems Constitutional: Negative HEENT: Negative Cardiac: As noted in HPI, recurrent episodes of bradycardia and hypotension, no chest pain. No palpitations. No syncope. Pulmonary: No cough no wheezing no shortness of breath no chest pain. No hemoptysis. GI: As noted in HPI. Genitourinary: Negative Musculoskeletal: Negative Neurologic: Negative Psychiatric: Negative Hematologic: Negative Skin: Negative Endocrine: Negative Lymphatics: Negative Past Medical History Past Medical History: Asthma, GERD/Reflux, Thyroid Disorder Additional Past Medical History / Comment(s): Patient states she a leaky heart valve and ovarian cyst. History of Any Multi-Drug Resistant Organisms: None Reported Past Surgical History: No Surgical Hx Reported Past Anesthesia/Blood Transfusion Reactions: No Reported Reaction Additional Past Anesthesia/Blood Transfusion Reaction / Comment(s): Pt. has never recived blood products Past Psychological History: No Psychological Hx Reported Smoking Status: Never smoker Past Alcohol Use History: Occasional Past Drug Use History: None Reported - Past Family History Father Family Medical History: AFIB, AICD/Pacemaker Mother Family Medical History: Thyroid Disorder Medications and Allergies Home Medications Medication Instructions Recorded Confirmed Type Albuterol Nebulized [Ventolin 2.5 mg INHALATION RT-Q4H PRN 11/25/19 11/25/19 History Nebulized] Cetirizine HCl [Zyrtec] 10 mg PO DAILY 11/25/19 11/25/19 History Dextroamphetamine/Amphetamine 30 mg PO QAM PRN 11/25/19 11/25/19 History [Adderall Xr] Fluticasone Nasal [place] [Flonase 2 spr EA NOSTRIL DAILY 11/25/19 11/25/19 History Nasal [place]] Ibuprofen [Motrin] 800 mg PO TID PRN 11/25/19 11/25/19 History Levothyroxine Sodium [Synthroid] 75 mcg PO DAILY 11/25/19 11/25/19 History Montelukast Sodium [Singulair] 10 mg PO HS 11/25/19 11/25/19 History Multivitamins, Thera [Multivitamin 1 tab PO DAILY 11/25/19 11/25/19 History (formulary)] Norgestimate-Ethinyl Estradiol 1 tab PO DAILY 11/25/19 11/25/19 History [Tri-Sprintec Tablet] Omega3/Dha/Epa/Fish Oil/Vit D3 1 cap PO DAILY 11/25/19 11/25/19 History [[place]-3 + Vitamin D3 Softgel] Omeprazole 20 mg PO BID 11/25/19 11/25/19 History Allergies Allergy/AdvReac Type Severity Reaction Status Date / Time No Known Allergies Allergy Verified 11/25/19 10:16 Physical Exam Vitals: Vital Signs Temp Pulse Pulse Resp BP BP Pulse Ox 11/25/19 13:00 98.2 F 45 L 23 86/58 96 11/25/19 12:45 44 L 14 86/63 96 11/25/19 12:30 43 L 14 93/67 95 11/25/19 12:15 53 L 12 91/56 94 L 11/25/19 12:00 44 L 15 86/73 97 11/25/19 11:45 49 L 23 93/56 98 11/25/19 11:30 51 L 13 94/55 95 11/25/19 11:15 49 L 16 96/61 98 11/25/19 11:00 46 L 14 95/67 96 11/25/19 10:45 44 L 13 96/57 95 11/25/19 10:30 45 L 14 87/59 95 11/25/19 10:15 48 L 14 85/54 95 11/25/19 10:00 46 L 14 87/59 95 11/25/19 09:45 46 L 16 93/76 95 11/25/19 09:30 49 L 16 105/60 95 11/25/19 09:15 58 L 0 L 85/53 97 11/25/19 09:00 50 L 17 84/60 97 11/25/19 08:45 46 L 15 91/49 95 11/25/19 08:30 46 L 10 L 98/77 98 11/25/19 08:15 60 13 94/60 98 11/25/19 08:00 98.5 F 48 L 14 96/55 95 11/25/19 07:45 48 L 15 93/53 93 L 11/25/19 07:30 61 18 98/54 94 L 11/25/19 07:15 49 L 16 98/62 94 L 11/25/19 07:00 48 L 15 93/59 95 11/25/19 06:45 48 L 18 95/61 95 11/25/19 06:30 45 L 12 102/69 98 11/25/19 06:15 60 16 112/72 94 L 11/25/19 06:00 60 16 107/66 97 11/25/19 05:45 59 L 17 119/66 96 11/25/19 05:32 96 11/25/19 05:30 98.2 F 45 L 17 119/66 92 L 11/25/19 05:15 46 L 17 93 L 11/25/19 05:09 35 H 11/25/19 04:41 98.2 F 58 L 18 119/66 92 L 11/25/19 04:39 98.2 F 52 L 16 133/71 98 11/25/19 03:59 73 16 146/74 96 11/25/19 03:47 64 16 144/74 100 11/25/19 03:40 66 16 139/87 100 11/25/19 03:34 67 20 139/84 100 11/25/19 03:26 69 13 154/79 100 11/25/19 03:09 98.5 F 66 16 114/58 97 11/25/19 02:52 70 14 121/61 98 11/25/19 02:45 77 14 91/70 98 11/25/19 02:40 70 12 90/48 98 11/25/19 02:35 70 15 147/87 98 11/25/19 02:30 75 16 127/75 98 11/25/19 02:20 68 16 139/77 98 11/25/19 02:11 68 16 121/66 100 11/25/19 02:05 38 L 16 104/48 96 11/25/19 01:48 36 L 12 109/67 97 11/25/19 01:43 36 L 16 99/59 100 11/25/19 01:39 37 L 12 88/58 100 11/25/19 01:30 38 L 14 79/53 100 11/25/19 01:15 44 L 18 77/51 94 L 11/25/19 01:02 40 L 16 77/54 98 11/25/19 00:49 41 L 18 78/52 97 11/25/19 00:38 43 L 14 82/57 96 11/25/19 00:30 45 L 26 H 98/83 100 11/25/19 00:07 52 L 11/25/19 00:02 60 24 91/62 100 11/25/19 00:00 40 L 26 H 99/83 100 11/24/19 23:14 98.1 F 60 18 109/69 95 11/24/19 22:12 98.3 F 66 14 117/75 100 11/24/19 21:32 73 14 112/73 100 11/24/19 21:11 59 L 14 112/73 100 11/24/19 21:06 73 14 120/76 100 11/24/19 20:59 97.6 F 48 L 16 127/72 100 Intake and Output 11/24/19 11/25/19 11/25/19 22:59 06:59 14:59 Intake Total 322.216 910 Output Total 775 685 Balance -452.784 225 Intake: IV 260 910 Sodium Chloride 0.9% 1, 260 910 000 ml @ 130 mls/hr IV . Q7H42M [facility] Rx#:[id number] Intake, IV Titration 62.216 Amount Norepinephrine 4 mg In 62.216 Sodium Chloride 0.9% 250 ml @ 0.05 MCG/KG/MIN 15. 554 mls/hr IV .[id number] [facility] Rx#:[id number] Output: Urine 775 685 Other: Voiding Method Indwelling Catheter # Voids 2 Weight 81.647 kg 81.647 kg Physical Exam: Revealed 49-year-old female in no distress. Head: Atraumatic, normocephalic. HEENT:[Neck is supple.] [No neck masses.] [No thyromegaly.] [No JVD.] Chest: [Clear throughout, no crackles, no rhonchi, no wheezes.] Cardiac Exam: [Normal S1 and S2, no S3 gallop, no murmur.] Abdomen: [Soft, nontender, no megaly, no rebound, no guarding, normal bowel sounds.] Extremities: [No clubbing, no edema, no cyanosis.] Neurological Exam: [No focal neurologic deficit.] Alert and oriented 3. Psychiatric: Normal mood, affect and normal mental status examination. Skin: No rashes. Lymphatics: No lymphadenopathy. Results - Laboratory Findings CBC and BMP: 11/25/19 03:45 11/25/19 05:26 PT/INR, D-dimer PT 10.2 sec (9.0-12.0) 11/24/19 21:11 INR 1.0 (<1.2) 11/24/19 21:11 Abnormal lab findings: Abnormal Labs 11/24/19 11/24/19 11/24/19 20:57 21:11 21:11 RBC 3.47 L Hgb 10.5 L Hct 31.8 L Neutrophils # Lymphocytes # APTT 21.0 L Sodium Chloride Carbon Dioxide Creatinine Glucose POC Glucose (mg/dL) 105 H Calcium AST ALT Alkaline Phosphatase Total Protein Albumin Ur Specific [place] Ur Amphetamines Screen 11/24/19 11/24/19 11/24/19 21:11 23:14 23:14 RBC Hgb Hct Neutrophils # Lymphocytes # APTT Sodium Chloride 112 H Carbon Dioxide 20 L Creatinine Glucose 118 H POC Glucose (mg/dL) Calcium 7.4 L AST 90 H ALT 53 H Alkaline Phosphatase Total Protein 5.1 L Albumin 2.9 L Ur Specific [place] >1.050 H Ur Amphetamines Screen Detected H 11/25/19 11/25/19 11/25/19 03:45 05:09 05:26 RBC Hgb Hct Neutrophils # 8.3 H Lymphocytes # 0.8 L APTT Sodium 135 L Chloride 110 H Carbon Dioxide 20 L Creatinine 0.49 L Glucose 138 H POC Glucose (mg/dL) 130 H Calcium 7.9 L AST ALT Alkaline Phosphatase Total Protein Albumin Ur Specific [place] Ur Amphetamines Screen 11/25/19 11/25/19 05:26 11:47 RBC Hgb Hct Neutrophils # Lymphocytes # APTT Sodium Chloride Carbon Dioxide Creatinine Glucose POC Glucose (mg/dL) 105 H Calcium AST 345 H ALT 253 H Alkaline Phosphatase 166 H Total Protein Albumin Ur Specific [place] Ur Amphetamines Screen - Diagnostic Findings Additional studies: CT angiogram of the chest was reviewed, CT of the abdomen and pelvis reviewed chest x-ray reviewed no evidence of any significant abnormalities except what was noted in HPI. Assessment and Plan Assessment: Impression: Recurrent vasovagal episode secondary to abdominal pain Epigastric pain, could be gastritis, could be GERD, and could be gastric ulcer disease. That is to be addressed by GI on the case, in the meantime continue Protonix. Abnormal liver enzymes with abnormal CT of the abdomen and pelvis suggestive of periportal edema., That is to be addressed by GI on the case. History of GERD. Recommendation: Continue present supportive care measures. Continue Protonix. Continue to monitor in the ICU for the next 24 hours. GI to see on consultation. Cardiology to see on consultation. We'll continue to follow. Time with Patient: Greater than 30
--- NOTE | 2019-11-25 17:32 | US ---
EXAMINATION TYPE: US gallbladder DATE OF EXAM: 11/25/2019 COMPARISON: CT 11/24/2019 CLINICAL HISTORY: epigastric pain, elevated LFTs. Difficult and limited exam due to overlying bowel g as EXAM MEASUREMENTS: Liver Length: 17.2 cm Gallbladder Wall: 0.2 cm CBD: 0.8 cm Right Kidney: 9.3 x 4.3 x 4.3 cm Pancreas: Obscured by bowel gas Liver: No focal abnormality seen. No intrahepatic biliary ductal dilatation. Gallbladder: No cholelithiasis, gallbladder thickening, or pericholecystic edema. Medical Operations Supervisor reports a negative sonographic Momin sign. CBD: Dilated. Distal portion obscured by b owel gas Right Kidney: Normal. Tiny focus of fluid visualized near the liver may be related to periportal edema seen on CT compariso n. Possible right sided small pleural effusion IMPRESSION: 1. Mild common bile duct dilatation up to 8 mm. Consider MRCP examination to evaluate for possible ch oledocholithiasis or biliary stricture. 2. No cholelithiasis or acute cholecystitis. 3. Pancreas obscured due to overlying bowel gas. 4. Small right pleural effusion.
[2019-11-25] MEDS ORDERED: LIDOCAINE 1% (10MG/ML) FOR IV START INTRADERMA PRN (17:38)
[2019-11-25] MEDS ORDERED: LACTATED RINGERS 1,000 ML IV SCH (17:45)
[2019-11-25 17:46] LABS: Glucose,Whole Blood 103 mg/dL (75-99)
[2019-11-25] MEDS ORDERED: FUROSEMIDE 10 MG/ML 4 ML VIAL IV STA (18:55)
[2019-11-25 19:36] LABS: Hepatitis A Antibody IgM Non-Reactive (Non-Reactive); Hepatitis B Core IgM Non-Reactive (Non-Reactive); Hepatitis B Surface Antigen Non-Reactive (Non-Reactive); Hepatitis C IgG Antibody Non-Reactive (Non-Reactive)
[2019-11-25] MEDS: LORATADINE 10 MG TAB PO SCH (22:06)
--- NOTE | 2019-11-26 00:08 | P.HPIM ---
History of Present Illness H&P Date: 11/25/19 Chief Complaint: Epigastric pain Ms. Mota is a 49-year-old female with a past medical history of asthma, GERD, hypothyroidism, ovarian cyst, who follows with Dr. Manoj Piedra, in the outpatient setting, coming in with a chief complaint of epigastric pain a ssociated with dizziness, nausea, diaphoresis. Patient denied having any history of such complaints in the past. She was having pain in the epigastric region that was radiating to the right side associated with nausea and vomiting. She denied having any diarrhea or hematemesis or blood in her stool. Patient denied using any [id number] medications or herbal supplements. She said she was on vacation and trying to relax. She said that she did horse riding. In the ER patient was found to have bradycardia and hypotension. She required a central line placement and admitted to the ICU. Patient's labs showed hemoglobin of 12.1, sodium 137, potassium 4, chloride 112, bicarb 20, BUN 14, creatinine 0.58. Blood sugars have been within normal limits. LFT showed AST of 90, ALT of 53, alkaline phosphatase 113. Troponin was less than 0.012. Her urine analysis was negative for nitrites and leukocyte Estrace. UDS was positive for amphetamines. Currently the patient is in the ICU, heart monitor showing sinus bradycardia with heart rate between 40s to 50s. Her blood pressure is being maintained on the lower side with normal saline running at 130 cc/h. Patient is also started on IV Protonix. Review of Systems REVIEW OF SYSTEMS: CONSTITUTIONAL: No fever, no malaise, no fatigue. HEENT: No recent visual problems or hearing problems. Denied any sore throat. CARDIOVASCULAR: No orthopnea, PND, no palpitations, no syncope. PULMONARY: No shortness of breath, no cough, no hemoptysis. GASTROINTESTINAL: As per HPI NEUROLOGICAL: No headaches, no weakness, no numbness. HEMATOLOGICAL: Denies any bleeding or petechiae. GENITOURINARY: Denies any burning micturition, frequency, or urgency. MUSCULOSKELETAL/RHEUMATOLOGICAL: No joint swelling or pains ENDOCRINE: Denies any polyuria or polydipsia. Denies heat or cold intolerance The rest of the 13-point review of systems is negative. Past Medical History Past Medical History: Asthma, GERD/Reflux, Thyroid Disorder Additional Past Medical History / Comment(s): Patient states she a leaky heart valve and ovarian cyst. History of Any Multi-Drug Resistant Organisms: None Reported Past Surgical History: No Surgical Hx Reported Past Anesthesia/Blood Transfusion Reactions: No Reported Reaction Additional Past Anesthesia/Blood Transfusion Reaction / Comment(s): Pt. has never recived blood products Past Psychological History: No Psychological Hx Reported Smoking Status: Never smoker Past Alcohol Use History: Occasional Past Drug Use History: None Reported - Past Family History Father Family Medical History: AFIB, AICD/Pacemaker Mother Family Medical History: Thyroid Disorder Medications and Allergies Home Medications Medication Instructions Recorded Confirmed Type Albuterol Nebulized [Ventolin 2.5 mg INHALATION RT-Q4H PRN 11/25/19 11/25/19 History Nebulized] Cetirizine HCl [Zyrtec] 10 mg PO DAILY 11/25/19 11/25/19 History Dextroamphetamine/Amphetamine 30 mg PO QAM PRN 11/25/19 11/25/19 History [Adderall Xr] Fluticasone Nasal [place] [Flonase 2 spr EA NOSTRIL DAILY 11/25/19 11/25/19 History Nasal [place]] Ibuprofen [Motrin] 800 mg PO TID PRN 11/25/19 11/25/19 History Levothyroxine Sodium [Synthroid] 75 mcg PO DAILY 11/25/19 11/25/19 History Montelukast Sodium [Singulair] 10 mg PO HS 11/25/19 11/25/19 History Multivitamins, Thera [Multivitamin 1 tab PO DAILY 11/25/19 11/25/19 History (formulary)] Norgestimate-Ethinyl Estradiol 1 tab PO DAILY 11/25/19 11/25/19 History [Tri-Sprintec Tablet] Omega3/Dha/Epa/Fish Oil/Vit D3 1 cap PO DAILY 11/25/19 11/25/19 History [[place]-3 + Vitamin D3 Softgel] Omeprazole 20 mg PO BID 11/25/19 11/25/19 History Allergies Allergy/AdvReac Type Severity Reaction Status Date / Time No Known Allergies Allergy Verified 11/25/19 10:16 Physical Exam Vitals: Vital Signs Temp Pulse Pulse Resp BP BP Pulse Ox 11/25/19 17:00 48 L 8 L 91/63 96 11/25/19 16:45 62 9 L 86/54 96 11/25/19 16:30 50 L 18 89/64 94 L 11/25/19 16:15 46 L 13 101/61 94 L 11/25/19 16:00 98.0 F 43 L 12 105/63 96 11/25/19 15:45 46 L 13 96/65 89 L 11/25/19 15:30 45 L 18 107/61 96 11/25/19 15:15 60 13 92/46 95 11/25/19 15:00 51 L 14 91/62 97 11/25/19 14:45 65 15 92/58 99 11/25/19 14:30 47 L 15 106/64 96 11/25/19 14:15 43 L 18 119/61 97 11/25/19 14:00 55 L 23 91/54 95 11/25/19 13:45 42 L 14 85/55 96 11/25/19 13:30 41 L 13 91/61 95 11/25/19 13:15 60 18 88/62 96 11/25/19 13:00 98.2 F 45 L 23 86/58 96 11/25/19 12:45 44 L 14 86/63 96 11/25/19 12:30 43 L 14 93/67 95 11/25/19 12:15 53 L 12 91/56 94 L 11/25/19 12:00 44 L 15 86/73 97 11/25/19 11:45 49 L 23 93/56 98 11/25/19 11:30 51 L 13 94/55 95 11/25/19 11:15 49 L 16 96/61 98 11/25/19 11:00 46 L 14 95/67 96 11/25/19 10:45 44 L 13 96/57 95 11/25/19 10:30 45 L 14 87/59 95 11/25/19 10:15 48 L 14 85/54 95 11/25/19 10:00 46 L 14 87/59 95 11/25/19 09:45 46 L 16 93/76 95 11/25/19 09:30 49 L 16 105/60 95 11/25/19 09:15 58 L 0 L 85/53 97 11/25/19 09:00 50 L 17 84/60 97 11/25/19 08:45 46 L 15 91/49 95 11/25/19 08:30 46 L 10 L 98/77 98 11/25/19 08:15 60 13 94/60 98 11/25/19 08:00 98.5 F 48 L 14 96/55 95 11/25/19 07:45 48 L 15 93/53 93 L 11/25/19 07:30 61 18 98/54 94 L 11/25/19 07:15 49 L 16 98/62 94 L 11/25/19 07:00 48 L 15 93/59 95 11/25/19 06:45 48 L 18 95/61 95 11/25/19 06:30 45 L 12 102/69 98 11/25/19 06:15 60 16 112/72 94 L 11/25/19 06:00 60 16 107/66 97 11/25/19 05:45 59 L 17 119/66 96 11/25/19 05:32 96 11/25/19 05:30 98.2 F 45 L 17 119/66 92 L 11/25/19 05:15 46 L 17 93 L 11/25/19 05:09 35 H 11/25/19 04:41 98.2 F 58 L 18 119/66 92 L 11/25/19 04:39 98.2 F 52 L 16 133/71 98 11/25/19 03:59 73 16 146/74 96 11/25/19 03:47 64 16 144/74 100 11/25/19 03:40 66 16 139/87 100 11/25/19 03:34 67 20 139/84 100 11/25/19 03:26 69 13 154/79 100 11/25/19 03:09 98.5 F 66 16 114/58 97 11/25/19 02:52 70 14 121/61 98 11/25/19 02:45 77 14 91/70 98 11/25/19 02:40 70 12 90/48 98 11/25/19 02:35 70 15 147/87 98 11/25/19 02:30 75 16 127/75 98 11/25/19 02:20 68 16 139/77 98 11/25/19 02:11 68 16 121/66 100 11/25/19 02:05 38 L 16 104/48 96 11/25/19 01:48 36 L 12 109/67 97 11/25/19 01:43 36 L 16 99/59 100 11/25/19 01:39 37 L 12 88/58 100 11/25/19 01:30 38 L 14 79/53 100 11/25/19 01:15 44 L 18 77/51 94 L 11/25/19 01:02 40 L 16 77/54 98 11/25/19 00:49 41 L 18 78/52 97 11/25/19 00:38 43 L 14 82/57 96 11/25/19 00:30 45 L 26 H 98/83 100 11/25/19 00:07 52 L 11/25/19 00:02 60 24 91/62 100 11/25/19 00:00 40 L 26 H 99/83 100 11/24/19 23:14 98.1 F 60 18 109/69 95 11/24/19 22:12 98.3 F 66 14 117/75 100 11/24/19 21:32 73 14 112/73 100 11/24/19 21:11 59 L 14 112/73 100 11/24/19 21:06 73 14 120/76 100 11/24/19 20:59 97.6 F 48 L 16 127/72 100 Intake and Output 11/25/19 11/25/19 11/25/19 06:59 14:59 22:59 Intake Total 384.146 3315 390 Output Total 775 735 120 Balance -452.784 305 270 Intake: IV 260 1040 390 Sodium Chloride 0.9% 1, 260 1040 390 000 ml @ 130 mls/hr IV . Q7H42M PARAM Rx#:[id number] Intake, IV Titration 62.216 Amount Norepinephrine 4 mg In 62.216 Sodium Chloride 0.9% 250 ml @ 0.05 MCG/KG/MIN 15. 554 mls/hr IV .[id number] PARAM Rx#:[id number] Output: Urine 775 735 120 Other: Voiding Method Indwelling Catheter Indwelling Catheter # Voids 2 Weight 81.647 kg PHYSICAL EXAMINATION: GENERAL: not in any acute distress. HEENT: Pupils are round and equally reacting to light. EOMI. No scleral icterus. No conjunctival pallor. Normocephalic, atraumatic. No pharyngeal erythema. No thyromegaly. CARDIOVASCULAR: Bradycardia, S 1 and s 2 heard. No additional sounds. PULMONARY: Bilateral breath sounds are positive. No wheeze or crackles. ABDOMEN: Soft, nontender, nondistended, normoactive bowel sounds. No palpable organomegaly. MUSCULOSKELETAL: No joint swelling or deformity. EXTREMITIES: No cyanosis, clubbing, or pedal edema. NEUROLOGICAL: alert, awake, oriented X 3 , Gross neurological examination did not reveal any focal deficits. SKIN: No rashes Results CBC & Chem 7: 11/26/19 05:15 11/26/19 05:15 Labs: Abnormal Lab Results - Last 24 Hours (Table) 11/24/19 11/24/19 11/24/19 Range/Units 20:57 21:11 21:11 RBC 3.47 L (3.80-5.40) m/uL Hgb 10.5 L (11.4-16.0) gm/dL Hct 31.8 L (34.0-46.0) % Neutrophils # (1.3-7.7) k/uL Lymphocytes # (1.0-4.8) k/uL APTT 21.0 L (22.0-30.0) sec Sodium (137-145) mmol/L Chloride (98-107) mmol/L Carbon Dioxide (22-30) mmol/L Creatinine (0.52-1.04) mg/dL Glucose (74-99) mg/dL POC Glucose (mg/dL) 105 H (75-99) mg/dL Calcium (8.4-10.2) mg/dL AST (14-36) U/L ALT (4-34) U/L Alkaline Phosphatase (38-126) U/L Total Protein (6.3-8.2) g/dL Albumin (3.5-5.0) g/dL Ur Specific [place] (1.001-1.035) Ur Amphetamines Screen (NotDetected) 11/24/19 11/24/19 11/24/19 Range/Units 21:11 23:14 23:14 RBC (3.80-5.40) m/uL Hgb (11.4-16.0) gm/dL Hct (34.0-46.0) % Neutrophils # (1.3-7.7) k/uL Lymphocytes # (1.0-4.8) k/uL APTT (22.0-30.0) sec Sodium (137-145) mmol/L Chloride 112 H (98-107) mmol/L Carbon Dioxide 20 L (22-30) mmol/L Creatinine (0.52-1.04) mg/dL Glucose 118 H (74-99) mg/dL POC Glucose (mg/dL) (75-99) mg/dL Calcium 7.4 L (8.4-10.2) mg/dL AST 90 H (14-36) U/L ALT 53 H (4-34) U/L Alkaline Phosphatase (38-126) U/L Total Protein 5.1 L (6.3-8.2) g/dL Albumin 2.9 L (3.5-5.0) g/dL Ur Specific [place] >1.050 H (1.001-1.035) Ur Amphetamines Screen Detected H (NotDetected) 11/25/19 11/25/19 11/25/19 Range/Units 03:45 05:09 05:26 RBC (3.80-5.40) m/uL Hgb (11.4-16.0) gm/dL Hct (34.0-46.0) % Neutrophils # 8.3 H (1.3-7.7) k/uL Lymphocytes # 0.8 L (1.0-4.8) k/uL APTT (22.0-30.0) sec Sodium 135 L (137-145) mmol/L Chloride 110 H (98-107) mmol/L Carbon Dioxide 20 L (22-30) mmol/L Creatinine 0.49 L (0.52-1.04) mg/dL Glucose 138 H (74-99) mg/dL POC Glucose (mg/dL) 130 H (75-99) mg/dL Calcium 7.9 L (8.4-10.2) mg/dL AST (14-36) U/L ALT (4-34) U/L Alkaline Phosphatase (38-126) U/L Total Protein (6.3-8.2) g/dL Albumin (3.5-5.0) g/dL Ur Specific [place] (1.001-1.035) Ur Amphetamines Screen (NotDetected) 11/25/19 11/25/19 11/25/19 Range/Units 05:26 11:47 17:44 RBC (3.80-5.40) m/uL Hgb (11.4-16.0) gm/dL Hct (34.0-46.0) % Neutrophils # (1.3-7.7) k/uL Lymphocytes # (1.0-4.8) k/uL APTT (22.0-30.0) sec Sodium (137-145) mmol/L Chloride (98-107) mmol/L Carbon Dioxide (22-30) mmol/L Creatinine (0.52-1.04) mg/dL Glucose (74-99) mg/dL POC Glucose (mg/dL) 105 H 103 H (75-99) mg/dL Calcium (8.4-10.2) mg/dL AST 345 H (14-36) U/L ALT 253 H (4-34) U/L Alkaline Phosphatase 166 H (38-126) U/L Total Protein (6.3-8.2) g/dL Albumin (3.5-5.0) g/dL Ur Specific [place] (1.001-1.035) Ur Amphetamines Screen (NotDetected) Thrombosis Risk Factor Assmnt - Choose All That Apply Each Factor Represents 1 point: Age 41-60 years, Obesity (BMI >25) Other Risk Factors: No Other congenital or acquired thrombophilia - If yes, enter type in comment: No Thrombosis Risk Factor Assessment Total Risk Factor Score: 2 Thrombosis Risk Factor Assessment Level: Low Risk Assessment and Plan Assessment: ASSESSMENT Severe epigastric pain Hypotension Symptomatic bradycardia Transaminitis CT of the abdomen showing periportal edema in the liver UDS positive for amphetamines - pt on adderral History of GERD Hypothyroidism Ovarian cyst Asthma PLAN: Patient had a CT of the abdomen showing periportal edema in the liver with elevated LFTs. Work-up on the progress with hepatitis panel, NICOLAS, AFP, antimitochondrial antibodies, iron panel, urine and protein electrophoresis. Patient's blood pressure is being maintained with a MAP around 60 on IV fluids. She is still in sinus bradycardia. Cardiology, GI, pulmonary on board and following the patient closely. She is re started on her home medications. Further recommendations to follow depending on the progress of the patient.
[2019-11-26 02:25] LABS: Glucose,Whole Blood 104 mg/dL (75-99)
[2019-11-26] MEDS: SODIUM CHLORIDE 0.9% 1,000 ML IV SCH ×2 (02:27→10:29)
[2019-11-26 05:50] LABS: Basophils % (A) 0 %; Eosinophils # (A) 0.1 k/uL (0-0.7); Eosinophils % (A) 2 %; HCT 32.3 % (34.0-46.0); HGB 10.4 gm/dL (11.4-16.0); Lymphocytes # (A) 1.5 k/uL (1.0-4.8); Lymphocytes % (A) 23 %; MCH 30.1 pg (25.0-35.0); MCHC 32.2 g/dL (31.0-37.0); MCV 93.5 fL (80.0-100.0); Mean Platelet Volume 8.3; Monocytes # (A) 0.5 k/uL (0-1.0); Monocytes % (A) 7 %; Neutrophils # (A) 4.4 k/uL (1.3-7.7); Neutrophils % (A) 66 %; Platelet Count 205 k/uL (150-450); RBC 3.46 m/uL (3.80-5.40); WBC 6.6 k/uL (3.8-10.6)
[2019-11-26 05:52] LABS: Glucose,Whole Blood 80 mg/dL (75-99)
[2019-11-26 06:02] LABS: African American GFR (CKD) >90 (>60 ml/min/1.73 sqM); Anion Gap 1 mmol/L; Blood Urea Nitrogen 4 mg/dL (7-17); Calcium 7.5 mg/dL (8.4-10.2); Carbon Dioxide 26 mmol/L (22-30); Chloride 109 mmol/L (98-107); Glucose 87 mg/dL (74-99); Non-African American GFR(CKD) >90 (>60 ml/min/1.73 sqM); Potassium 3.6 mmol/L (3.5-5.1); Sodium 136 mmol/L (137-145)
[2019-11-26] MEDS ORDERED: Potassium Replacement Protocol 1 EACH MISC MISCELLANE PRN (06:47)
--- NOTE | 2019-11-26 06:57 | P.CONS ---
History of Present Illness - Reason for Consult Consult date: 11/25/19 Epigastric abdominal pain Requesting physician: Gita Bautista - Chief Complaint Epigastric abdominal pain - History of Present Illness 49-year-old female with multiple medical comorbidities including hypothyroidism, GERD, asthma and history of ovarian cysts who presented to the hospital with a primary complaint of epigastric pain. The patient reports severe epigastric pain located above her bellybutton. She describes pain as sharp in nature initially without any radiation and then moving to the right side. She denies any nausea or vomiting in association with her pain. No history of cholecystectomy. No prior history of elevated liver enzymes and reports only occasional social alcohol use and no history of heavy alcohol use. She does have a history of reflux disease and is on omeprazole therapy at home. She reports being given a GI cocktail in the emergency department and reports that this worsened her pain. No prior EGD or colonoscopy reported. She reports bowel movements are generally normal and daily with no signs or symptoms of GI bleeding. Occasionally she reports she will of constipation. She does use Motrin 800 mg but has decreased her use over the past month. Patient was found to be hypotensive and bradycardic in the emergency department and is currently being managed in the ICU and been seen by the cardiology service. Review of Systems REVIEW OF SYSTEMS: CONSTITUTIONAL: Denies any fevers, chills, weight change or fatigue. CARDIOVASCULAR: Denies any chest pain, palpitations high blood patient found to be bradycardic with low blood pressures on presentation RESPIRATORY: Denies any shortness of breath, hemoptysis or cough. GENITOURINARY: No dysuria or hematuria. MUSCULOSKELETAL: No weakness reported. SKIN: Denies any new rashes or lesions, jaundice or pallor. PSYCHIATRIC: Denies any depression or anxiety. NEUROLOGY: Denies headache, denies any new focal deficits. EARS/NOSE/THROAT: No recent hearing change, congestion, nasal discharge or sore throat. EYES: No pain in eyes, discharge or change in vision. GASTROINTESTINAL: As per HPI. Past Medical History Past Medical History: Asthma, GERD/Reflux, Thyroid Disorder Additional Past Medical History / Comment(s): Patient states she a leaky heart valve and ovarian cyst. History of Any Multi-Drug Resistant Organisms: None Reported Past Surgical History: No Surgical Hx Reported Past Anesthesia/Blood Transfusion Reactions: No Reported Reaction Additional Past Anesthesia/Blood Transfusion Reaction / Comm: Pt. has never recived blood products Past Psychological History: No Psychological Hx Reported Smoking Status: Never smoker Past Alcohol Use History: Occasional Past Drug Use History: None Reported - Past Family History Father Family Medical History: AFIB, AICD/Pacemaker Mother Family Medical History: Thyroid Disorder Medications and Allergies Home Medications Medication Instructions Recorded Confirmed Type Albuterol Nebulized [Ventolin 2.5 mg INHALATION RT-Q4H PRN 11/25/19 11/25/19 History Nebulized] Cetirizine HCl [Zyrtec] 10 mg PO DAILY 11/25/19 11/25/19 History Dextroamphetamine/Amphetamine 30 mg PO QAM PRN 11/25/19 11/25/19 History [Adderall Xr] Fluticasone Nasal [place] [Flonase 2 spr EA NOSTRIL DAILY 11/25/19 11/25/19 History Nasal [place]] Ibuprofen [Motrin] 800 mg PO TID PRN 11/25/19 11/25/19 History Levothyroxine Sodium [Synthroid] 75 mcg PO DAILY 11/25/19 11/25/19 History Montelukast Sodium [Singulair] 10 mg PO HS 11/25/19 11/25/19 History Multivitamins, Thera [Multivitamin 1 tab PO DAILY 11/25/19 11/25/19 History (formulary)] Norgestimate-Ethinyl Estradiol 1 tab PO DAILY 11/25/19 11/25/19 History [Tri-Sprintec Tablet] Omega3/Dha/Epa/Fish Oil/Vit D3 1 cap PO DAILY 11/25/19 11/25/19 History [[place]-3 + Vitamin D3 Softgel] Omeprazole 20 mg PO BID 11/25/19 11/25/19 History Allergies Allergy/AdvReac Type Severity Reaction Status Date / Time No Known Allergies Allergy Verified 11/25/19 10:16 Physical Exam Vitals: Vital Signs Temp Pulse Pulse Resp BP BP Pulse Ox 11/25/19 13:00 98.2 F 45 L 23 86/58 96 11/25/19 12:45 44 L 14 86/63 96 11/25/19 12:30 43 L 14 93/67 95 11/25/19 12:15 53 L 12 91/56 94 L 11/25/19 12:00 44 L 15 86/73 97 11/25/19 11:45 49 L 23 93/56 98 11/25/19 11:30 51 L 13 94/55 95 11/25/19 11:15 49 L 16 96/61 98 11/25/19 11:00 46 L 14 95/67 96 11/25/19 10:45 44 L 13 96/57 95 11/25/19 10:30 45 L 14 87/59 95 11/25/19 10:15 48 L 14 85/54 95 11/25/19 10:00 46 L 14 87/59 95 11/25/19 09:45 46 L 16 93/76 95 11/25/19 09:30 49 L 16 105/60 95 11/25/19 09:15 58 L 0 L 85/53 97 11/25/19 09:00 50 L 17 84/60 97 11/25/19 08:45 46 L 15 91/49 95 11/25/19 08:30 46 L 10 L 98/77 98 11/25/19 08:15 60 13 94/60 98 11/25/19 08:00 98.5 F 48 L 14 96/55 95 11/25/19 07:45 48 L 15 93/53 93 L 11/25/19 07:30 61 18 98/54 94 L 11/25/19 07:15 49 L 16 98/62 94 L 11/25/19 07:00 48 L 15 93/59 95 11/25/19 06:45 48 L 18 95/61 95 11/25/19 06:30 45 L 12 102/69 98 11/25/19 06:15 60 16 112/72 94 L 11/25/19 06:00 60 16 107/66 97 11/25/19 05:45 59 L 17 119/66 96 11/25/19 05:32 96 11/25/19 05:30 98.2 F 45 L 17 119/66 92 L 11/25/19 05:15 46 L 17 93 L 11/25/19 05:09 35 H 11/25/19 04:41 98.2 F 58 L 18 119/66 92 L 11/25/19 04:39 98.2 F 52 L 16 133/71 98 11/25/19 03:59 73 16 146/74 96 11/25/19 03:47 64 16 144/74 100 11/25/19 03:40 66 16 139/87 100 11/25/19 03:34 67 20 139/84 100 11/25/19 03:26 69 13 154/79 100 11/25/19 03:09 98.5 F 66 16 114/58 97 11/25/19 02:52 70 14 121/61 98 11/25/19 02:45 77 14 91/70 98 11/25/19 02:40 70 12 90/48 98 11/25/19 02:35 70 15 147/87 98 11/25/19 02:30 75 16 127/75 98 11/25/19 02:20 68 16 139/77 98 11/25/19 02:11 68 16 121/66 100 11/25/19 02:05 38 L 16 104/48 96 11/25/19 01:48 36 L 12 109/67 97 11/25/19 01:43 36 L 16 99/59 100 11/25/19 01:39 37 L 12 88/58 100 11/25/19 01:30 38 L 14 79/53 100 11/25/19 01:15 44 L 18 77/51 94 L 11/25/19 01:02 40 L 16 77/54 98 11/25/19 00:49 41 L 18 78/52 97 11/25/19 00:38 43 L 14 82/57 96 11/25/19 00:30 45 L 26 H 98/83 100 11/25/19 00:07 52 L 11/25/19 00:02 60 24 91/62 100 11/25/19 00:00 40 L 26 H 99/83 100 11/24/19 23:14 98.1 F 60 18 109/69 95 11/24/19 22:12 98.3 F 66 14 117/75 100 11/24/19 21:32 73 14 112/73 100 11/24/19 21:11 59 L 14 112/73 100 11/24/19 21:06 73 14 120/76 100 11/24/19 20:59 97.6 F 48 L 16 127/72 100 Intake and Output 11/24/19 11/25/19 11/25/19 22:59 06:59 14:59 Intake Total 322.216 910 Output Total 775 685 Balance -452.784 225 Intake: IV 260 910 Sodium Chloride 0.9% 1, 260 910 000 ml @ 130 mls/hr IV . Q7H42M PARAM Rx#:[id number] Intake, IV Titration 62.216 Amount Norepinephrine 4 mg In 62.216 Sodium Chloride 0.9% 250 ml @ 0.05 MCG/KG/MIN 15. 554 mls/hr IV .[id number] PARAM Rx#:[id number] Output: Urine 775 685 Other: Voiding Method Indwelling Catheter # Voids 2 Weight 81.647 kg 81.647 kg On physical examination, patient appears comfortable in no apparent distress. HEAD: Normocephalic, atraumatic. EYES: No scleral icterus. No conjunctival injection. MOUTH: No lesions, tongue midline. NECK: Trachea midline, no gross abnormalities. CHEST: Normal respiratory distress. HEART: Regular rate and bradycardia. ABDOMEN: Soft, thin and mildly tender to palpation. Bowel sounds are positive. No organomegaly. No guarding or rigidity. EXTREMITIES: No pedal edema. SKIN: No rashes, no jaundice. NEUROLOGIC: Alert and oriented x3. No focal deficits. Results CBC & Chem 7: 11/26/19 05:15 11/26/19 05:15 Labs: Abnormal Lab Results - Last 24 Hours (Table) 11/24/19 11/24/19 11/24/19 Range/Units 20:57 21:11 21:11 RBC 3.47 L (3.80-5.40) m/uL Hgb 10.5 L (11.4-16.0) gm/dL Hct 31.8 L (34.0-46.0) % Neutrophils # (1.3-7.7) k/uL Lymphocytes # (1.0-4.8) k/uL APTT 21.0 L (22.0-30.0) sec Sodium (137-145) mmol/L Chloride (98-107) mmol/L Carbon Dioxide (22-30) mmol/L Creatinine (0.52-1.04) mg/dL Glucose (74-99) mg/dL POC Glucose (mg/dL) 105 H (75-99) mg/dL Calcium (8.4-10.2) mg/dL AST (14-36) U/L ALT (4-34) U/L Alkaline Phosphatase (38-126) U/L Total Protein (6.3-8.2) g/dL Albumin (3.5-5.0) g/dL Ur Specific [place] (1.001-1.035) Ur Amphetamines Screen (NotDetected) 11/24/19 11/24/19 11/24/19 Range/Units 21:11 23:14 23:14 RBC (3.80-5.40) m/uL Hgb (11.4-16.0) gm/dL Hct (34.0-46.0) % Neutrophils # (1.3-7.7) k/uL Lymphocytes # (1.0-4.8) k/uL APTT (22.0-30.0) sec Sodium (137-145) mmol/L Chloride 112 H (98-107) mmol/L Carbon Dioxide 20 L (22-30) mmol/L Creatinine (0.52-1.04) mg/dL Glucose 118 H (74-99) mg/dL POC Glucose (mg/dL) (75-99) mg/dL Calcium 7.4 L (8.4-10.2) mg/dL AST 90 H (14-36) U/L ALT 53 H (4-34) U/L Alkaline Phosphatase (38-126) U/L Total Protein 5.1 L (6.3-8.2) g/dL Albumin 2.9 L (3.5-5.0) g/dL Ur Specific [place] >1.050 H (1.001-1.035) Ur Amphetamines Screen Detected H (NotDetected) 11/25/19 11/25/19 11/25/19 Range/Units 03:45 05:09 05:26 RBC (3.80-5.40) m/uL Hgb (11.4-16.0) gm/dL Hct (34.0-46.0) % Neutrophils # 8.3 H (1.3-7.7) k/uL Lymphocytes # 0.8 L (1.0-4.8) k/uL APTT (22.0-30.0) sec Sodium 135 L (137-145) mmol/L Chloride 110 H (98-107) mmol/L Carbon Dioxide 20 L (22-30) mmol/L Creatinine 0.49 L (0.52-1.04) mg/dL Glucose 138 H (74-99) mg/dL POC Glucose (mg/dL) 130 H (75-99) mg/dL Calcium 7.9 L (8.4-10.2) mg/dL AST (14-36) U/L ALT (4-34) U/L Alkaline Phosphatase (38-126) U/L Total Protein (6.3-8.2) g/dL Albumin (3.5-5.0) g/dL Ur Specific [place] (1.001-1.035) Ur Amphetamines Screen (NotDetected) 11/25/19 11/25/19 Range/Units 05:26 11:47 RBC (3.80-5.40) m/uL Hgb (11.4-16.0) gm/dL Hct (34.0-46.0) % Neutrophils # (1.3-7.7) k/uL Lymphocytes # (1.0-4.8) k/uL APTT (22.0-30.0) sec Sodium (137-145) mmol/L Chloride (98-107) mmol/L Carbon Dioxide (22-30) mmol/L Creatinine (0.52-1.04) mg/dL Glucose (74-99) mg/dL POC Glucose (mg/dL) 105 H (75-99) mg/dL Calcium (8.4-10.2) mg/dL AST 345 H (14-36) U/L ALT 253 H (4-34) U/L Alkaline Phosphatase 166 H (38-126) U/L Total Protein (6.3-8.2) g/dL Albumin (3.5-5.0) g/dL Ur Specific [place] (1.001-1.035) Ur Amphetamines Screen (NotDetected) CT scan - abdomen: report reviewed (Computed tomography scan of the abdomen performed and significant for mild periportal edema suggestive of hepatitis.) Assessment and Plan (1) Epigastric abdominal pain Narrative/Plan: 49-year-old female presents to the hospital with severe periumbilical sharp epigastric abdominal pain. Patient found to be hypotensive and bradycardic and sent to the intensive care unit for further monitoring and currently being evaluated by the cardiology service. Patient denies any nausea or vomiting in association with her symptoms or change in bowel habits or signs or symptoms of GI bleed. No prior endoscopic evaluation reported. Computed tomography scan significant only for some mild periportal edema suggestive of hepatitis. She did have elevation in her liver enzymes predominantly in a hepatocellular pattern with total bilirubin 0.8, alkaline phosphatase 166, AST 345 and ALT 253. Acute viral hepatitis panel testing negative. No prior cholecystectomy. Unclear if symptoms are related to peptic ulcer disease, uncontrolled GERD, functional bowel disorder, gallbladder pathology or other etiology. Current Visit: Yes Status: Acute Code(s): R10.13 - EPIGASTRIC PAIN SNOMED Code(s): 15102303 (2) Elevated liver enzymes Current Visit: Yes Status: Acute Code(s): R74.8 - ABNORMAL LEVELS OF OTHER SERUM ENZYMES SNOMED Code(s): 941392829 (3) GERD (gastroesophageal reflux disease) Current Visit: Yes Status: Acute Code(s): K21.9 - GASTRO-ESOPHAGEAL REFLUX DISEASE WITHOUT ESOPHAGITIS SNOMED Code(s): 087947658 Plan: Supportive care Continue ICU management Appreciate cardiology recommendations and full liver serologies ordered due to elevated liver enzymes, acute viral hepatitis panel testing was negative Ultrasound of the abdomen ordered Plan for EGD, pending clearance from cardiology Continue PPI therapy Continue monitor CBC, BMP, LFTs Thank you for allowing us to participate in the care of the patient
[2019-11-26] MEDS: POTASSIUM CHLORIDE 10 MEQ in WATER FOR INJECTION 1 100ML.BAG IVPB SCH ×2 (06:58→08:52)
[2019-11-26] MEDS: MORPHINE SULFATE 4 MG/ML SYRINGE IV PRN (07:05)
[2019-11-26] MEDS: LEVOTHYROXINE 75 MCG TAB PO SCH ×2 (07:10→14:18)
[2019-11-26] MEDS: ACETAMINOPHEN TAB 325 MG TAB PO PRN (08:50)
[2019-11-26] MEDS: PANTOPRAZOLE 40 MG/10 ML VIAL IV SCH ×2 (08:51→20:12)
--- NOTE | 2019-11-26 09:33 | PN ---
PROGRESS NOTE Mrs. Mota is a 49-year-old female who presented with abdominal discomfort and symptoms of dizziness and was noted to have hypotension and bradycardia. She is doing well this morning. Her heart rate runs in the 50s and her blood pressure have been stable. She is in the low 100s. She is not on any vasopressors. She is scheduled to undergo upper endoscopy. She continues to have some abdominal discomfort. She has no chest discomfort. There is no evidence of arrhythmia. She underwent an echocardiogram yesterday that revealed a preserved ventricular size and systolic function with no significant valvular disease. She continues to be at this time on the IV fluid in addition to levothyroxine. PHYSICAL EXAMINATION: Blood pressure 108/60 with a heart rate in the 50s. LUNGS: Clear. HEART: Regular rate and rhythm, S1, S2. No S3. No rub. ABDOMEN: Soft, mild epigastric tenderness, no rebound. Positive bowel sounds. EXTREMITIES: No edema. LAB DATA: Revealed BUN and creatinine 4 and 0.53, potassium 3.6, hemoglobin 10.4. IMPRESSION: 1. Abdominal discomfort, workup in progress. 2. Bradycardia and hypotension exacerbated by vasovagal phenomenon with the abdominal discomfort. 3. A dilated common bile duct, etiology unclear. RECOMMENDATION: From the cardiac standpoint, I see no evidence of significant cardiac issues. Patient will undergo the endoscopy today. Will see her on an as-needed basis. Please feel free to call us for any question. MMODL / IJN: [id number] /
[2019-11-26 11:21] LABS: Alpha Fetoprotein, Tumor Mkr <2.5 ng/mL (0.0-7.9)
[2019-11-26] MEDS ORDERED: PROPOFOL 10 MG/ML 20 ML VIAL IV ONE (11:56)
[2019-11-26] MEDS ORDERED: SODIUM CHLORIDE 0.9% 500 ML 500 ML IV ONE (12:05)
[2019-11-26 12:23] LABS: Ferritin 56.2 ng/mL (10.0-291.0)
[2019-11-26 12:26] LABS: Total Bilirubin 0.5 mg/dL (0.2-1.3)
[2019-11-26 13:06] LABS: % Iron Saturation 8.63 (12.00-45.00); Iron 22 ug/dL (50-170); Total Iron Binding Capacity 255 ug/dL (228-460)
[2019-11-26 13:08] LABS: Ceruloplasmin 31.3 mg/dL (20.0-60.0)
--- NOTE | 2019-11-26 14:04 | P.PN ---
Subjective Progress Note Date: 11/26/19 Principal diagnosis: Recurrent vasovagal episodes with bradycardia and hypotension secondary to abdominal pain. his is a 49-year-old female with history of GERD, presented to the ER yesterday with recurrent episodes of severe epigastric discomfort associated with significant diaphoresis, dizziness, nausea, and profound bradycardia with hypotension. Patient was seen in the ER with these symptoms, and while in the ER she had recurrent episodes of severe epigastric pain associated with bradycardia and hypotension requiring fluid boluses, and she required a central line placement, admitted to the ICU, and this consult was initiated. Patient is presently asymptomatic except for some vague discomfort in the epigastric region, no further episodes of bradycardia while in the ICU. Blood pressure remains stable. Seen already by cardiology on consultation, and her echocardio gram was basically unremarkable. Patient was felt to have most likely recurrent episodes of vasovagal episodes associated with abdominal pain, hypotension, and bradycardia. CT angiogram of the chest showed no evidence of pulmonary embolism. CT of the abdomen and pelvis showed mild periportal edema in the liver, otherwise unremarkable. Labs including CBC, basic metabolic profile are normal, however her liver enzymes were noted be elevated with AST of 345, ALT of 53 and alkaline phosphatase of 166. Patient was reevaluated today on 11/26/19, remains in the ICU, no major issues overnight. Scheduled to undergo EGD today. No episodes of hypotension, but she did have episodes of bradycardia with out any hemodynamic instabilities. Labs including CBC, basic metabolic profile are normal. Liver enzymes remain a bit elevated, but improved. Objective - Vital Signs Vital signs: Vital Signs Temp 98.3 F 11/26/19 08:00 Pulse 56 L 11/26/19 13:20 Resp 13 11/26/19 13:20 BP 115/77 11/26/19 13:20 Pulse Ox 93 L 11/26/19 13:20 Intake & Output 11/25/19 11/26/19 11/26/19 18:59 06:59 18:59 Intake Total 1560 1560 890 Output Total 880 1700 415 Balance 680 -140 475 Weight 89.6 kg Intake: IV 1560 1560 890 Sodium Chloride 0.9% 1, 1560 1560 690 000 ml @ 75 mls/hr IV . [id number] [facility] Rx#:[id number] potassium 100 Output: Urine 880 1700 415 Other: Voiding Method Indwelling Catheter Indwelling Catheter Indwelling Catheter - Exam Physical Exam: Revealed 49-year-old female in no distress. Head: Atraumatic, normocephalic. HEENT:[Neck is supple.] [No neck masses.] [No thyromegaly.] [No JVD.] Chest: [Clear throughout, no crackles, no rhonchi, no wheezes.] Cardiac Exam: [Normal S1 and S2, no S3 gallop, no murmur.] Abdomen: [Soft, nontender, no megaly, no rebound, no guarding, normal bowel sounds.] Extremities: [No clubbing, no edema, no cyanosis.] Neurological Exam: [No focal neurologic deficit.] Alert and oriented 3. Psychiatric: Normal mood, affect and normal mental status examination. Skin: No rashes. Lymphatics: No lymphadenopathy. - Labs CBC & Chem 7: 11/26/19 05:15 11/26/19 05:15 Labs: Abnormal Lab Results - Last 24 Hours (Table) 11/25/19 11/26/19 11/26/19 Range/Units 17:44 02:24 05:15 RBC (3.80-5.40) m/uL Hgb (11.4-16.0) gm/dL Hct (34.0-46.0) % Sodium (137-145) mmol/L Chloride (98-107) mmol/L BUN (7-17) mg/dL POC Glucose (mg/dL) 103 H 104 H (75-99) mg/dL Calcium (8.4-10.2) mg/dL Iron (50-170) ug/dL % Saturation (12.00-45.00) AST (14-36) U/L ALT (4-34) U/L Total Protein (PEP) 5.0 L (6.2-8.2) g/dL 11/26/19 11/26/19 11/26/19 Range/Units 05:15 05:15 05:15 RBC 3.46 L (3.80-5.40) m/uL Hgb 10.4 L (11.4-16.0) gm/dL Hct 32.3 L (34.0-46.0) % Sodium 136 L (137-145) mmol/L Chloride 109 H (98-107) mmol/L BUN 4 L (7-17) mg/dL POC Glucose (mg/dL) (75-99) mg/dL Calcium 7.5 L (8.4-10.2) mg/dL Iron 22 L (50-170) ug/dL % Saturation 8.63 L (12.00-45.00) AST 149 H (14-36) U/L ALT 227 H (4-34) U/L Total Protein (PEP) (6.2-8.2) g/dL Assessment and Plan Assessment: Impression: Recurrent vasovagal episode secondary to abdominal pain Epigastric pain, could be gastritis, could be GERD, and could be gastric ulcer disease. Patient is undergoing EGD today. Abnormal liver enzymes with abnormal CT of the abdomen and pelvis suggestive of periportal edema., That is to be addressed by GI on the case. History of GERD. Recommendation: Continue present supportive care measures. Continue Protonix. Transfer patient out of the ICU to a regular medical floor today after EGD. We'll continue to follow. Time with Patient: Less than 30
--- NOTE | 2019-11-26 14:14 | CDI ---
Documentation Clarification Form Date: 11/26/2019 02:08:37 PM From: Stephanie Fatima RN, CCDS Admit Date: 11/25/2019 04:23:00 AM Patient Name: Kyra Mota Visit Number: [id number] ATTENTION: The Clinical Documentation Specialists (CDI) and [facility] Coding Staff appreciate your assistance in clarifying documentation. Please respond to the clarification below the line at the bottom and electronically sign. The CDI & [facility] Coding staff will review the response and follow-up if needed. Please note: Queries are made part of the Legal Health Record. If you have any questions, please contact the author of this message via ITS. Dr. Gita Bautista Please render your opinion on the clinical significance of the patients hemoglobin/hematocrit levels. History/Risk Factors: Asthma, Gerd Clinical indicators: 11/23-11/25 Hgb: 10.5/12.1/10.4 11/23-11/25 Hct: 31.8/36.9/32.3 11/25 Iron: 22 TIBC: 255 % Saturation 56.2 Ferritin 56.2 Treatment: Labs AM daily 11/24 1L 0.9% IVF Bolus followed 75 cc/hr In order to capture the severity of condition, please clarify if the labs/clinical indicators signify: Chronic blood loss anemia Iron deficiency anemia Nutritional anemia Anemia of chronic disease Unable to determine Other, please specify (Last Form Revision: June 2019) Iron deficiency anemia MTDD
[2019-11-26] MEDS: LORATADINE 10 MG TAB PO SCH (14:18)
[2019-11-26] MEDS ORDERED: DICYCLOMINE 20 MG TAB PO PRN (14:22)
--- NOTE | 2019-11-26 21:22 | P.PCN ---
Date of Procedure: 11/26/19 Description of Procedure: BRIEF HISTORY: 49-year-old female with multiple medical comorbidities including hypothyroidism, GERD, asthma and history of ovarian cysts who presented to the hospital with a primary complaint of epigastric pain. The patient reports severe epigastric pain located above her bellybutton. She describes pain as sharp in nature initially without any radiation and then moving to the right side. She denies any nausea or vomiting in association with her pain. No history of cholecystectomy. No prior history of elevated liver enzymes and reports only occasional social alcohol use and no history of heavy alcohol use. She does have a history of reflux disease and is on omeprazole therapy at home. She reports being given a GI cocktail in the emergency department and reports that this worsened her pain. No prior EGD or colonoscopy reported. She reports bowel movements are generally normal and daily with no signs or symptoms of GI bleeding. Occasionally she reports she will of constipation. She does use Motrin 800 mg but has decreased her use over the past month. Patient was found to be hypotensive and bradycardic in the emergency department and is currently being managed in the ICU and been seen by the cardiology service. PROCEDURE PERFORMED: Esophagogastroduodenoscopy with biopsy. PREOPERATIVE DIAGNOSIS: Anemia. ESTIMATED BLOOD LOSS: Minimal. IV sedation per anesthesia. PROCEDURE: After informed consent was obtained, the patient was brought into the endoscopy unit. IV sedation was administered by Anesthesia under continuous monitoring. Initially the Olympus GIF-190 video endoscope was inserted into the mouth. Esophagus intubated without any difficulty. It was gradually advanced into the stomach and duodenum and carefully examined. The bulb and the second part of the duodenum appeared normal, with biopsies taken to rule out celiac sprue. The scope at this time was withdrawn to the stomach, adequately insufflated with air, and upon careful examination, mucosa of the antrum, body, cardia and the fundus appeared normal, except for some mild punctate erythema in the antrum and body suggestive of mild gastritis with biopsies taken. The scope was then withdrawn into the esophagus. The GE junction was located at 39 cm from the incisors. The esophagus appeared normal. There were no erosions or ulcerations seen and the patient tolerated the procedure well. IMPRESSION: 1. Mild gastritis antrum and body, biopsied. 2. Duodenal and GE junction biopsies. RECOMMENDATIONS: The findings of this examination were discussed with the patient. Okay to resume clear liquid diet. Okay to resume medications. Await pathology from biopsies. Further evaluation still underway with full liver serologies ordered. We'll also order MRCP to rule out choledocholithiasis or biliary pathology.
--- NOTE | 2019-11-26 22:05 | P.PN ---
Subjective Progress Note Date: 11/26/19 Principal diagnosis: Hypotension and Bradycardia Ms. Mota is a 49-year-old female with a past medical history of asthma, GERD, hypothyroidism, ovarian cyst, who follows with Dr. Manoj Piedra, in the outpatient setting, coming in with a chief complaint of epigastric pain associated with dizziness, nausea, diaphoresis. Patient denied having any history of such complaints in the past. She was having pain in the epigastric region that was radiating to the right side associated with nausea and vomiting. She denied having any diarrhea or hematemesis or blood in her stool. Patient denied using any [id number] medications or herbal supplements. She said she was on vacation and trying to relax. She said that she did horse riding. In the ER patient was found to have bradycardia and hypotension. She required a central line placement and admitted to the ICU. Patient's labs showed hemoglobin of 12.1, sodium 137, potassium 4, chloride 112, bicarb 20, BUN 14, creatinine 0.58. Blood sugars have been within normal limits. LFT showed AST of 90, ALT of 53, alkaline phosphatase 113. Troponin was less than 0.012. Her urine analysis was negative for nitrites and leukocyte Estrace. UDS was positive for amphetamines. On 11/26/2019 -patient is still in the ICU. She does not have any active complaints other than mild epigastric pain. She denies having any nausea or vomiting. Patient denies having any fevers chills or rigors, no chest pain or palpitations. No cough or difficulty breathing. No dysuria or hematuria. Patient's blood pressure is within normal limits, no hypotensive episodes. Patient still in sinus bradycardia with heart rate as low as low 30s. On reviewing her labs AST 149, ALT 227, AFP level less than 2.5. Active Medications Acetaminophen (Tylenol Tab) 650 mg PO Q6HR PRN PRN Reason: Mild Pain or Fever > 100.5 Last Admin: 11/26/19 08:50 Dose: 650 mg Documented by: Dicyclomine HCl (Bentyl) 20 mg PO QID PRN PRN Reason: Dyspepsia Sodium Chloride (Saline 0.9%) 1,000 mls @ 75 mls/hr IV .[id number] PARAM Last Admin: 11/26/19 10:29 Dose: 75 mls/hr Documented by: Levothyroxine Sodium (Synthroid) 75 mcg PO DAILY@0630 [facility] Last Admin: 11/26/19 14:18 Dose: 75 mcg Documented by: Lidocaine HCl (.Xylocaine 1% Inj (10mg/Ml) For Iv Start) 0.1 ml INTRADERMA PER PROTOCOL PRN PRN Reason: IV Start Loratadine (Claritin) 10 mg PO DAILY [facility] Last Admin: 11/26/19 14:18 Dose: 10 mg Documented by: Miscellaneous Information (Potassium Per Protocol) 1 each MISCELLANE DAILY PRN; Protocol PRN Reason: Per Protocol Morphine Sulfate (Morphine Sulfate (Inj)) 4 mg IV Q4HR PRN PRN Reason: Severe Pain Last Admin: 11/26/19 07:05 Dose: 4 mg Documented by: Naloxone HCl (Narcan) 0.2 mg IV Q2M PRN PRN Reason: Opioid Reversal Pantoprazole Sodium (Protonix) 40 mg IV BID [facility] Last Admin: 11/26/19 08:51 Dose: 40 mg Documented by: Objective - Vital Signs Vital signs: Vital Signs Temp 98.3 F 11/26/19 08:00 Pulse 75 11/26/19 14:00 Resp 13 11/26/19 14:00 BP 109/85 11/26/19 14:00 Pulse Ox 98 11/26/19 14:00 Intake & Output 11/25/19 11/26/19 11/26/19 18:59 06:59 18:59 Intake Total 1560 1560 965 Output Total 880 1700 465 Balance 680 -140 500 Weight 89.6 kg Intake: IV 1560 1560 965 Sodium Chloride 0.9% 1, 1560 1560 765 000 ml @ 75 mls/hr IV . [id number] [facility] Rx#:[id number] potassium 100 Output: Urine 880 1700 465 Other: Voiding Method Indwelling Catheter Indwelling Catheter Indwelling Catheter - Exam PHYSICAL EXAMINATION: GENERAL: not in any acute distress. HEENT: Pupils are round and equally reacting to light. EOMI. No scleral icterus. No conjunctival pallor. Normocephalic, atraumatic. CARDIOVASCULAR: Bradycardia, S 1 and s 2 heard. No additional sounds. PULMONARY: Bilateral breath sounds are positive. No wheeze or crackles. ABDOMEN: Soft, nontender, nondistended, normoactive bowel sounds. No palpable organomegaly. MUSCULOSKELETAL: No joint swelling or deformity. EXTREMITIES: No cyanosis, clubbing, or pedal edema. NEUROLOGICAL: alert, awake, oriented X 3 , Gross neurological examination did not reveal any focal deficits. SKIN: No rashes - Labs CBC & Chem 7: 11/27/19 04:19 11/27/19 14:47 Labs: Abnormal Lab Results - Last 24 Hours (Table) 11/25/19 11/26/19 11/26/19 Range/Units 17:44 02:24 05:15 RBC (3.80-5.40) m/uL Hgb (11.4-16.0) gm/dL Hct (34.0-46.0) % Sodium (137-145) mmol/L Chloride (98-107) mmol/L BUN (7-17) mg/dL POC Glucose (mg/dL) 103 H 104 H (75-99) mg/dL Calcium (8.4-10.2) mg/dL Iron (50-170) ug/dL % Saturation (12.00-45.00) AST (14-36) U/L ALT (4-34) U/L Total Protein (PEP) 5.0 L (6.2-8.2) g/dL 11/26/19 11/26/19 11/26/19 Range/Units 05:15 05:15 05:15 RBC 3.46 L (3.80-5.40) m/uL Hgb 10.4 L (11.4-16.0) gm/dL Hct 32.3 L (34.0-46.0) % Sodium 136 L (137-145) mmol/L Chloride 109 H (98-107) mmol/L BUN 4 L (7-17) mg/dL POC Glucose (mg/dL) (75-99) mg/dL Calcium 7.5 L (8.4-10.2) mg/dL Iron 22 L (50-170) ug/dL % Saturation 8.63 L (12.00-45.00) AST 149 H (14-36) U/L ALT 227 H (4-34) U/L Total Protein (PEP) (6.2-8.2) g/dL Assessment and Plan Assessment: ASSESSMENT Severe epigastric pain Hypotension Symptomatic bradycardia Transaminitis CT of the abdomen showing periportal edema in the liver UDS positive for amphetamines - pt on adderral History of GERD Hypothyroidism Ovarian cyst Asthma PLAN: Patient had a CT of the abdomen showing periportal edema in the liver with elevated LFTs. Work-up on the progress with hepatitis panel, NICOLAS, AFP, antimitochondrial antibodies, iron panel, urine and protein electrophoresis. She is still in sinus bradycardia.No more hypotensive episodes. Patient had EGD with biopsy done today showing mild gastritis and biopsies pending. Cardiology, GI, pulmonary on board and following the patient closely. Continue with the current medication regimen. DVT prophylaxis-patient is ambulating. Further recommendations to follow depending on the progress of the patient.
[2019-11-27] MEDS: SODIUM CHLORIDE 0.9% 1,000 ML IV SCH ×2 (01:00→06:00)
[2019-11-27 04:31] LABS: Basophils % (A) 0 %; Eosinophils # (A) 0.2 k/uL (0-0.7); Eosinophils % (A) 3 %; HCT 35.2 % (34.0-46.0); HGB 11.2 gm/dL (11.4-16.0); Lymphocytes # (A) 1.8 k/uL (1.0-4.8); Lymphocytes % (A) 24 %; MCH 29.3 pg (25.0-35.0); MCHC 31.8 g/dL (31.0-37.0); MCV 92.3 fL (80.0-100.0); Monocytes # (A) 0.5 k/uL (0-1.0); Monocytes % (A) 7 %; Neutrophils # (A) 4.9 k/uL (1.3-7.7); Neutrophils % (A) 65 %; Platelet Count 205 k/uL (150-450); RBC 3.81 m/uL (3.80-5.40); WBC 7.5 k/uL (3.8-10.6)
[2019-11-27 04:42] LABS: ALT 154 U/L (4-34); AST 60 U/L (14-36); African American GFR (CKD) >90 (>60 ml/min/1.73 sqM); Albumin 3.1 g/dL (3.5-5.0); Alkaline Phosphatase 136 U/L (38-126); Anion Gap 1 mmol/L; Blood Urea Nitrogen 2 mg/dL (7-17); Calcium 8.1 mg/dL (8.4-10.2); Carbon Dioxide 27 mmol/L (22-30); Chloride 107 mmol/L (98-107); Glucose 92 mg/dL (74-99); Non-African American GFR(CKD) >90 (>60 ml/min/1.73 sqM); Potassium 3.3 mmol/L (3.5-5.1); Sodium 135 mmol/L (137-145); Total Bilirubin 0.5 mg/dL (0.2-1.3); Total Protein 5.4 g/dL (6.3-8.2)
[2019-11-27] MEDS: POTASSIUM CHLORIDE 20 MEQ in WATER FOR INJECTION 1 100ML.BAG IVPB SCH ×2 (06:00→09:09)
[2019-11-27] MEDS: LEVOTHYROXINE 75 MCG TAB PO SCH ×2 (06:43→14:23)
[2019-11-27] MEDS: PANTOPRAZOLE 40 MG/10 ML VIAL IV SCH ×2 (07:55→20:21)
[2019-11-27] MEDS: LORATADINE 10 MG TAB PO SCH ×2 (08:36→14:23)
--- NOTE | 2019-11-27 09:00 | PN ---
PROGRESS NOTE Mrs. Mota is a 49-year-old female who presented with severe dizziness and hypotension and bradycardia following an episode of abdominal pain. Her abdominal pain is better today. Her heart rate and blood pressure is stable. She denies any symptoms of chest discomfort. Her epigastric pain is better. She underwent endoscopy yesterday and was found to have mild gastritis. She is scheduled to undergo an MRCP today. She is on no vasopressor. PHYSICAL EXAMINATION: Blood pressure 122/80 with a heart rate in 60s and 70s. LUNGS: Clear. HEART: Regular rate and rhythm, S1, S2. No S3. No rub. ABDOMEN: Mild epigastric tenderness, no rebound. EXTREMITIES: No edema. LAB DATA: Revealed a potassium 3.3, BUN creatinine up to 1.46. Hemoglobin of 11.2. Her AST is down to 60 with an ALT down to 164. IMPRESSION: 1. Vasovagal hypotension and bradycardia, resolved. 2. Abdominal discomfort workup in progress. 3. Dilated common bile duct with abnormal liver function test. Workup in progress. RECOMMENDATION: Will see her on a as-needed basis. From the cardiac standpoint, no further cardiac workup will be needed. MMODL / IJN: [id number] /
--- NOTE | 2019-11-27 11:27 | MR ---
EXAMINATION TYPE: MR MRCP DATE OF EXAM: 11/27/2019 COMPARISON: CT abdomen and pelvis 3 days ago. Gallbladder ultrasound 2 days ago. HISTORY: Abd pain, nausea, vomiting, transaminitis, dilated CBD, r/o CBD stone Standard multiplanar, multisequence MRI departmental protocol Multiplanar, multisequence images of the abdomen were acquired. Thin and thick slice MRCP performed o n the MRI scanner. FINDINGS: Liver/gallbladder/pancreas/biliary system: The seen better on MRI versus CT and ultrasound there are small dependent gallstones and/or gallbladder sludge. In addition there is new pericholecystic concen tric fluid identified. MRCP images slightly degraded by artifact but show common bile duct measuring under 6 mm which is within normal limits. No obvious filling defect or intraluminal gallstone. No int rahepatic biliary dilatation is present. Liver is upper limits of normal in size with mild signal poppy pout or fatty infiltration. Mild periportal edema remains present. No concerning solid or cystic mass identified. Pancreas is normal in size with occasional tiny T2 hyperintense focus possible thin-wall ed cyst reference coronal image 19 on axial image 21. No pancreatic ductal dilatation. Other: New tiny bilateral pleural effusions and worsening bibasilar atelectasis. No concerning renal mass or hydronephrosis bilaterally. Spleen is within normal limits. No suspicious adrenal masses. No suspicious bowel dilatation. No abdominal ascites. Osseous structures are intact. IMPRESSION: No suspicious biliary dilatation. Mild diffuse fatty infiltration of liver. Small gallsto qamar and/or gallbladder sludge with new mild to moderate concentric surrounding fluid raises concern f or developing acute cholecystitis. Correlate clinically. A Yellow level critical message alert has been initiated for Heather Mauro via the [employer] Critical Results System on 11/27/2019 11:25 AM. This message alert has been sent to Heather Mauro via the preferences provided by the clinician for the receipt of Radiology Critical Findings. [employer] e ID [id number].
[2019-11-27 12:03] LABS: Liver/Kidney Microsome Antibod 2.5 UNITS (<=20)
[2019-11-27 12:41] LABS: Gamma Globulin 0.69 g/dL (0.70-1.50)
--- NOTE | 2019-11-27 13:35 | P.PN ---
Subjective Progress Note Date: 11/27/19 Principal diagnosis: Recurrent vasovagal episodes with bradycardia and hypotension secondary to abdominal pain. his is a 49-year-old female with history of GERD, presented to the ER yesterday with recurrent episodes of severe epigastric discomfort associated with significant diaphoresis, dizziness, nausea, and profound bradycardia with hypotension. Patient was seen in the ER with these symptoms, and while in the ER she had recurrent episodes of severe epigastric pain associated with bradycardia and hypotension requiring fluid boluses, and she required a central line placement, admitted to the ICU, and this consult was initiated. Patient is presently asymptomatic except for some vague discomfort in the epigastric region, no further episodes of bradycardia while in the ICU. Blood pressure remains stable. Seen already by cardiology on consultation, and her echocardio gram was basically unremarkable. Patient was felt to have most likely recurrent episodes of vasovagal episodes associated with abdominal pain, hypotension, and bradycardia. CT angiogram of the chest showed no evidence of pulmonary embolism. CT of the abdomen and pelvis showed mild periportal edema in the liver, otherwise unremarkable. Labs including CBC, basic metabolic profile are normal, however her liver enzymes were noted be elevated with AST of 345, ALT of 53 and alkaline phosphatase of 166. Patient was reevaluated today on 11/26/19, remains in the ICU, no major issues overnight. Scheduled to undergo EGD today. No episodes of hypotension, but she did have episodes of bradycardia with out any hemodynamic instabilities. Labs including CBC, basic metabolic profile are normal. Liver enzymes remain a bit elevated, but improved. Patient was reevaluated today on 11/27/19, patient is on room air, just came back from [facility], doing well, asymptomatic, no further episodes of hypotension or bradycardia. IV fluid is at 75 mL/h, and I plan to discontinue IV fluid, and arrange for the patient to be transferred to a regular medical floor. Patient is relatively asymptomatic, and she is hemodynamically stable. Objective - Vital Signs Vital signs: Vital Signs Temp 98.8 F 11/27/19 10:00 Pulse 64 11/27/19 10:00 Resp 17 11/27/19 10:00 BP 137/91 11/27/19 10:00 Pulse Ox 95 11/27/19 10:00 Intake & Output 11/26/19 11/27/19 11/27/19 18:59 06:59 18:59 Intake Total 1265 300 75 Output Total 465 Balance 800 300 75 Weight 90.3 kg Intake: IV 1265 300 75 Sodium Chloride 0.9% 1, 1065 300 75 000 ml @ 75 mls/hr IV . [id number] [facility] Rx#:[id number] potassium 100 Output: Urine 465 Other: Voiding Method Indwelling Catheter Toilet Toilet # Voids 1 1 1 # Bowel Movements 2 1 - Exam Physical Exam: Revealed 49-year-old female in no distress. On room air. Head: Atraumatic, normocephalic. HEENT:[Neck is supple.] [No neck masses.] [No thyromegaly.] [No JVD.] Chest: [Clear throughout, no crackles, no rhonchi, no wheezes.] Cardiac Exam: [Normal S1 and S2, no S3 gallop, no murmur.] Abdomen: [Soft, nontender, no megaly, no rebound, no guarding, normal bowel sounds.] Extremities: [No clubbing, no edema, no cyanosis.] Neurological Exam: [No focal neurologic deficit.] Alert and oriented 3. Psychiatric: Normal mood, affect and normal mental status examination. Skin: No rashes. Lymphatics: No lymphadenopathy. - Labs CBC & Chem 7: 11/27/19 04:19 11/27/19 04:19 Labs: Abnormal Lab Results - Last 24 Hours (Table) 11/26/19 11/27/19 11/27/19 Range/Units 05:15 04:19 04:19 Hgb 11.2 L (11.4-16.0) gm/dL Sodium 135 L (137-145) mmol/L Potassium 3.3 L (3.5-5.1) mmol/L BUN 2 L (7-17) mg/dL Creatinine 0.46 L (0.52-1.04) mg/dL Calcium 8.1 L (8.4-10.2) mg/dL AST 60 H (14-36) U/L ALT 154 H (4-34) U/L Alkaline Phosphatase 136 H (38-126) U/L Total Protein 5.4 L (6.3-8.2) g/dL Albumin 3.1 L (3.5-5.0) g/dL Albumin (PEP) 2.90 L (3.80-4.90) g/dL Beta Globulins 0.53 L (0.60-1.30) g/dL Gamma Globulins 0.69 L (0.70-1.50) g/dL Assessment and Plan Assessment: Impression: Recurrent vasovagal episode secondary to abdominal pain Epigastric pain, could be gastritis, could be GERD, and could be gastric ulcer disease. EGD is basically nondiagnostic. Abnormal liver enzymes with abnormal CT of the abdomen and pelvis suggestive of periportal edema., MRCP is pending. History of GERD. Recommendation: Continue present supportive care measures. Continue Protonix. Transfer patient out of the ICU to a regular medical floor today after EGD. We'll continue to follow. On when necessary basis. Time with Patient: Less than 30
--- NOTE | 2019-11-27 14:02 | P.GSCN ---
History of Present Illness Consult date: 11/27/19 Reason for Consult: Cholecystitis History of present illness: Is a 49-year-old female who was admitted to the hospital with acute chest and right upper quadrant pain. Patient's workup found have evidence of cholecystitis. Patient has gallstones thickened gallbladder wall on MRCP. Past Medical History Past Medical History: Asthma, GERD/Reflux, Thyroid Disorder Additional Past Medical History / Comment(s): Patient states she a leaky heart valve and ovarian cyst. History of Any Multi-Drug Resistant Organisms: None Reported Past Surgical History: No Surgical Hx Reported Past Anesthesia/Blood Transfusion Reactions: No Reported Reaction Additional Past Anesthesia/Blood Transfusion Reaction / Comm: Pt. has never recived blood products Past Psychological History: No Psychological Hx Reported Smoking Status: Never smoker Past Alcohol Use History: Occasional Past Drug Use History: None Reported - Past Family History Father Family Medical History: AFIB, AICD/Pacemaker Mother Family Medical History: Thyroid Disorder Medications and Allergies Home Medications Medication Instructions Recorded Confirmed Type Albuterol Nebulized [Ventolin 2.5 mg INHALATION RT-Q4H PRN 11/25/19 11/25/19 History Nebulized] Cetirizine HCl [Zyrtec] 10 mg PO DAILY 11/25/19 11/25/19 History Dextroamphetamine/Amphetamine 30 mg PO QAM PRN 11/25/19 11/25/19 History [Adderall Xr] Fluticasone Nasal [place] [Flonase 2 spr EA NOSTRIL DAILY 11/25/19 11/25/19 History Nasal [place]] Ibuprofen [Motrin] 800 mg PO TID PRN 11/25/19 11/25/19 History Levothyroxine Sodium [Synthroid] 75 mcg PO DAILY 11/25/19 11/25/19 History Montelukast Sodium [Singulair] 10 mg PO HS 11/25/19 11/25/19 History Multivitamins, Thera [Multivitamin 1 tab PO DAILY 11/25/19 11/25/19 History (formulary)] Norgestimate-Ethinyl Estradiol 1 tab PO DAILY 11/25/19 11/25/19 History [Tri-Sprintec Tablet] Omega3/Dha/Epa/Fish Oil/Vit D3 1 cap PO DAILY 11/25/19 11/25/19 History [[place]-3 + Vitamin D3 Softgel] Omeprazole 20 mg PO BID 11/25/19 11/25/19 History Allergies Allergy/AdvReac Type Severity Reaction Status Date / Time No Known Allergies Allergy Verified 11/25/19 10:16 Surgical - Exam Vital Signs Temp Pulse Resp BP Pulse Ox 97.6 F 48 L 16 127/72 100 11/24/19 20:59 11/24/19 20:59 11/24/19 20:59 11/24/19 20:59 11/24/19 20:59 - General well developed, well nourished, no distress - Eyes PERRL - ENT normal pinna - Neck no masses - Respiratory normal expansion - Cardiovascular Rhythm: regular - Abdomen Mild right quadrant tenderness, there is no rebound or guarding. Abdomen: soft Results - Labs 11/27/19 04:19 11/27/19 04:19 Abnormal Lab Results - Last 24 Hours (Table) 11/26/19 11/27/19 11/27/19 Range/Units 05:15 04:19 04:19 Hgb 11.2 L (11.4-16.0) gm/dL Sodium 135 L (137-145) mmol/L Potassium 3.3 L (3.5-5.1) mmol/L BUN 2 L (7-17) mg/dL Creatinine 0.46 L (0.52-1.04) mg/dL Calcium 8.1 L (8.4-10.2) mg/dL AST 60 H (14-36) U/L ALT 154 H (4-34) U/L Alkaline Phosphatase 136 H (38-126) U/L Total Protein 5.4 L (6.3-8.2) g/dL Albumin 3.1 L (3.5-5.0) g/dL Albumin (PEP) 2.90 L (3.80-4.90) g/dL Beta Globulins 0.53 L (0.60-1.30) g/dL Gamma Globulins 0.69 L (0.70-1.50) g/dL Diabetes panel 11/27/19 Range/Units 04:19 Sodium 135 L (137-145) mmol/L Potassium 3.3 L (3.5-5.1) mmol/L Chloride 107 (98-107) mmol/L Carbon Dioxide 27 (22-30) mmol/L BUN 2 L (7-17) mg/dL Creatinine 0.46 L (0.52-1.04) mg/dL Glucose 92 (74-99) mg/dL Calcium 8.1 L (8.4-10.2) mg/dL AST 60 H (14-36) U/L ALT 154 H (4-34) U/L Alkaline Phosphatase 136 H (38-126) U/L Total Protein 5.4 L (6.3-8.2) g/dL Albumin 3.1 L (3.5-5.0) g/dL Calcium panel 11/27/19 Range/Units 04:19 Calcium 8.1 L (8.4-10.2) mg/dL Albumin 3.1 L (3.5-5.0) g/dL Pituitary panel 11/27/19 Range/Units 04:19 Sodium 135 L (137-145) mmol/L Potassium 3.3 L (3.5-5.1) mmol/L Chloride 107 (98-107) mmol/L Carbon Dioxide 27 (22-30) mmol/L BUN 2 L (7-17) mg/dL Creatinine 0.46 L (0.52-1.04) mg/dL Glucose 92 (74-99) mg/dL Calcium 8.1 L (8.4-10.2) mg/dL Adrenal panel 11/27/19 Range/Units 04:19 Sodium 135 L (137-145) mmol/L Potassium 3.3 L (3.5-5.1) mmol/L Chloride 107 (98-107) mmol/L Carbon Dioxide 27 (22-30) mmol/L BUN 2 L (7-17) mg/dL Creatinine 0.46 L (0.52-1.04) mg/dL Glucose 92 (74-99) mg/dL Calcium 8.1 L (8.4-10.2) mg/dL Total Bilirubin 0.5 (0.2-1.3) mg/dL AST 60 H (14-36) U/L ALT 154 H (4-34) U/L Alkaline Phosphatase 136 H (38-126) U/L Total Protein 5.4 L (6.3-8.2) g/dL Albumin 3.1 L (3.5-5.0) g/dL - Imaging Additional studies: MRCP shows evidence of cholelithiasis and thickened gallbladder wall Assessment and Plan Assessment: Cholecystitis. Patient be scheduled for laparoscopic cholestatic. Patient has drank clear liquids today. She'll be scheduled for tomorrow.
[2019-11-27] MEDS ORDERED: POTASSIUM CHLORIDE ER 20 MEQ TAB.ER PO SCH (16:00)
--- NOTE | 2019-11-27 21:09 | P.PN ---
Subjective Progress Note Date: 11/27/19 Principal diagnosis: Epigastric abdominal pain, cholecystitis, elevated liver enzymes Patient seen lying in bed reporting overall abdominal pain is improved. She is scheduled for laparoscopic cholecystectomy tomorrow. Objective - Vital Signs Vital signs: Vital Signs Temp 98.8 F 11/27/19 10:00 Pulse 64 11/27/19 10:00 Resp 17 11/27/19 10:00 BP 137/91 11/27/19 10:00 Pulse Ox 95 11/27/19 10:00 Intake & Output 11/26/19 11/27/19 11/27/19 18:59 06:59 18:59 Intake Total 1265 300 75 Output Total 465 Balance 800 300 75 Weight 90.3 kg Intake: IV 1265 300 75 Sodium Chloride 0.9% 1, 1065 300 75 000 ml @ 75 mls/hr IV . [id number] [facility] Rx#:[id number] potassium 100 Output: Urine 465 Other: Voiding Method Indwelling Catheter Toilet Toilet # Voids 1 1 1 # Bowel Movements 2 1 - Exam On physical examination, patient appears comfortable in no apparent distress. HEAD: Normocephalic, atraumatic. EYES: No scleral icterus. No conjunctival injection. MOUTH: No lesions, tongue midline. NECK: Trachea midline, no gross abnormalities. ABDOMEN: Soft, mildly tender to palpation. Bowel sounds are positive. No organomegaly. No guarding or rigidity. EXTREMITIES: No pedal edema. SKIN: No rashes, no jaundice. NEUROLOGIC: Alert and oriented x3. No focal deficits. - Labs CBC & Chem 7: 11/27/19 04:19 11/27/19 14:47 Labs: Abnormal Lab Results - Last 24 Hours (Table) 11/26/19 11/27/19 11/27/19 Range/Units 05:15 04:19 04:19 Hgb 11.2 L (11.4-16.0) gm/dL Sodium 135 L (137-145) mmol/L Potassium 3.3 L (3.5-5.1) mmol/L BUN 2 L (7-17) mg/dL Creatinine 0.46 L (0.52-1.04) mg/dL Calcium 8.1 L (8.4-10.2) mg/dL AST 60 H (14-36) U/L ALT 154 H (4-34) U/L Alkaline Phosphatase 136 H (38-126) U/L Total Protein 5.4 L (6.3-8.2) g/dL Albumin 3.1 L (3.5-5.0) g/dL Albumin (PEP) 2.90 L (3.80-4.90) g/dL Beta Globulins 0.53 L (0.60-1.30) g/dL Gamma Globulins 0.69 L (0.70-1.50) g/dL Assessment and Plan (1) Epigastric abdominal pain Narrative/Plan: 49-year-old female presents to the hospital with severe periumbilical sharp epigastric abdominal pain. Patient found to be hypotensive and bradycardic and sent to the intensive care unit for further monitoring and currently being evaluated by the cardiology service. Patient denies any nausea or vomiting in association with her symptoms or change in bowel habits or signs or symptoms of GI bleed. No prior endoscopic evaluation reported. Computed tomography scan significant only for some mild periportal edema suggestive of hepatitis. She did have elevation in her liver enzymes predominantly in a hepatocellular pattern with total bilirubin 0.8, alkaline phosphatase 166, AST 345 and ALT 253. Acute viral hepatitis panel testing negative. No prior cholecystectomy. EGD performed in evaluation significant only for mild gastritis unlikely the cause of the patient's pain. Given this fact and the elevation in liver enzymes patient had MRCP ordered which was consistent with acute cholecystitis. She is scheduled for laparoscopic cholecystectomy tomorrow. Current Visit: Yes Status: Acute Code(s): R10.13 - EPIGASTRIC PAIN SNOMED Code(s): 94847606 (2) Elevated liver enzymes Current Visit: Yes Status: Acute Code(s): R74.8 - ABNORMAL LEVELS OF OTHER SERUM ENZYMES SNOMED Code(s): 137038916 (3) GERD (gastroesophageal reflux disease) Current Visit: Yes Status: Acute Code(s): K21.9 - GASTRO-ESOPHAGEAL REFLUX DISEASE WITHOUT ESOPHAGITIS SNOMED Code(s): 968615890 Plan: Supportive care Continue ICU management Appreciate cardiology recommendations Full liver serologies ordered due to elevated liver enzymes as well as acute viral hepatitis panel testing was negative EGD significant only for mild gastritis, MRCP showed acute cholecystitis and patient scheduled for Continue PPI therapy Continue monitor CBC, BMP, LFTs Thank you for allowing us to participate in the care of the patient, the GI service will stand by, please call us back with any questions or concerns
--- NOTE | 2019-11-27 22:02 | P.PN ---
Subjective Progress Note Date: 11/27/19 Principal diagnosis: Hypotension and Bradycardia Ms. Mota is a 49-year-old female with a past medical history of asthma, GERD, hypothyroidism, ovarian cyst, who follows with Dr. Manoj Piedra, in the outpatient setting, coming in with a chief complaint of epigastric pain associated with dizziness, nausea, diaphoresis. Patient denied having any history of such complaints in the past. She was having pain in the epigastric region that was radiating to the right side associated with nausea and vomiting. She denied having any diarrhea or hematemesis or blood in her stool. Patient denied using any [id number] medications or herbal supplements. She said she was on vacation and trying to relax. She said that she did horse riding. In the ER patient was found to have bradycardia and hypotension. She required a central line placement and admitted to the ICU. Patient's labs showed hemoglobin of 12.1, sodium 137, potassium 4, chloride 112, bicarb 20, BUN 14, creatinine 0.58. Blood sugars have been within normal limits. LFT showed AST of 90, ALT of 53, alkaline phosphatase 113. Troponin was less than 0.012. Her urine analysis was negative for nitrites and leukocyte Estrace. UDS was positive for amphetamines. On 11/26/2019 -patient is still in the ICU. She does not have any active complaints other than mild epigastric pain. She denies having any nausea or vomiting. Patient denies having any fevers chills or rigors, no chest pain or palpitations. No cough or difficulty breathing. No dysuria or hematuria. Patient's blood pressure is within normal limits, no hypotensive episodes. Patient still in sinus bradycardia with heart rate as low as low 30s. On reviewing her labs AST 149, ALT 227, AFP level less than 2.5. On 11/27/2019 -patient is still in the ICU. She had MRCP done this morning and it shows mild diffuse fatty infiltration of the liver, small gallstones and gallbladder sludge with new mild to moderate concentric surrounding fluid raising concern for developing acute cholecystitis. Patient Is Happy to reason for her abdominal pain is gallbladder. She still complains of mild diffuse epi gastric pain radiating mostly towards the right side. Denies having any nausea or vomiting. She was a cooperative tolerate her breakfast this morning. Patient denies having any chest pain or palpitations. No cough or difficulty breathing no fever chills or rigors. Patient's labs from this morning show downtrend of AST and ALT and hemoglobin stable. Active Medications Acetaminophen (Tylenol Tab) 650 mg PO Q6HR PRN PRN Reason: Mild Pain or Fever > 100.5 Last Admin: 11/26/19 08:50 Dose: 650 mg Documented by: Dicyclomine HCl (Bentyl) 20 mg PO QID PRN PRN Reason: Dyspepsia Levothyroxine Sodium (Synthroid) 75 mcg PO DAILY@0630 [facility] Last Admin: 11/27/19 14:23 Dose: 75 mcg Documented by: Lidocaine HCl (.Xylocaine 1% Inj (10mg/Ml) For Iv Start) 0.1 ml INTRADERMA PER PROTOCOL PRN PRN Reason: IV Start Loratadine (Claritin) 10 mg PO DAILY [facility] Last Admin: 11/27/19 14:23 Dose: 10 mg Documented by: Miscellaneous Information (Potassium Per Protocol) 1 each MISCELLANE DAILY PRN; Protocol PRN Reason: Per Protocol Morphine Sulfate (Morphine Sulfate (Inj)) 4 mg IV Q4HR PRN PRN Reason: Severe Pain Last Admin: 11/26/19 07:05 Dose: 4 mg Documented by: Naloxone HCl (Narcan) 0.2 mg IV Q2M PRN PRN Reason: Opioid Reversal Pantoprazole Sodium (Protonix) 40 mg IV BID [facility] Last Admin: 11/27/19 20:21 Dose: 40 mg Documented by: Objective - Vital Signs Vital signs: Vital Signs Temp 98.8 F 11/27/19 10:00 Pulse 91 11/27/19 14:00 Resp 20 11/27/19 14:00 BP 128/81 11/27/19 14:00 Pulse Ox 96 11/27/19 14:00 Intake & Output 11/26/19 11/27/19 11/27/19 18:59 06:59 18:59 Intake Total 1265 300 725 Output Total 465 Balance 800 300 725 Weight 90.3 kg Intake: IV 1265 300 225 Sodium Chloride 0.9% 1, 1065 300 225 000 ml @ 75 mls/hr IV . [id number] [facility] Rx#:[id number] potassium 100 Oral 500 Output: Urine 465 Other: Voiding Method Indwelling Catheter Toilet Toilet # Voids 1 1 1 # Bowel Movements 2 1 - Exam PHYSICAL EXAMINATION: GENERAL: not in any acute distress. HEENT: Pupils are round and equally reacting to light. EOMI. No scleral icterus. No conjunctival pallor. Normocephalic, atraumatic. CARDIOVASCULAR: S 1 and s 2 heard. No additional sounds. PULMONARY: Bilateral breath sounds are positive. No wheeze or crackles. ABDOMEN: Soft, mild epigastric tenderness, nondistended, normoactive bowel sounds. No palpable organomegaly. MUSCULOSKELETAL: No joint swelling or deformity. EXTREMITIES: No cyanosis, clubbing, or pedal edema. NEUROLOGICAL: alert, awake, oriented X 3 , Gross neurological examination did not reveal any focal deficits. SKIN: No rashes - Labs CBC & Chem 7: 11/27/19 04:19 11/27/19 14:47 Labs: Abnormal Lab Results - Last 24 Hours (Table) 11/26/19 11/27/19 11/27/19 Range/Units 05:15 04:19 04:19 Hgb 11.2 L (11.4-16.0) gm/dL Sodium 135 L (137-145) mmol/L Potassium 3.3 L (3.5-5.1) mmol/L BUN 2 L (7-17) mg/dL Creatinine 0.46 L (0.52-1.04) mg/dL Calcium 8.1 L (8.4-10.2) mg/dL AST 60 H (14-36) U/L ALT 154 H (4-34) U/L Alkaline Phosphatase 136 H (38-126) U/L Total Protein 5.4 L (6.3-8.2) g/dL Albumin 3.1 L (3.5-5.0) g/dL Albumin (PEP) 2.90 L (3.80-4.90) g/dL Beta Globulins 0.53 L (0.60-1.30) g/dL Gamma Globulins 0.69 L (0.70-1.50) g/dL Assessment and Plan Assessment: ASSESSMENT Severe epigastric pain Hypotension Symptomatic bradycardia Transaminitis CT of the abdomen showing periportal edema in the liver UDS positive for amphetamines - pt on adderral History of GERD Hypothyroidism Ovarian cyst Asthma PLAN: Patient had a CT of the abdomen showing periportal edema in the liver with elevated LFTs. Work-up on the progress with hepatitis panel- negative for Hep A, B, C. NICOLAS is negative, antimitochondrial antibodies 4, anti-smooth muscle antibodies 4, liver KLM microsomal antibodies 2.5. No more episodes of bradycardia or hypotension. MRCP showing biliary sludge, surgery Dr. Mittal, has been consulted and is planning for cholecystectomy tomorrow morning. Continue with the rest of her current medication regimen. Cardiology, GI, pulmonary on board and following the patient closely. DVT prophylaxis-patient is ambulating. Further recommendations to follow depending on the progress of the patient.
[2019-11-27] MEDS: LACTATED RINGERS 1,000 ML IV SCH (23:39)
[2019-11-28] MEDS: LEVOTHYROXINE 75 MCG TAB PO SCH (07:00)
[2019-11-28] MEDS: PANTOPRAZOLE 40 MG/10 ML VIAL IV SCH ×2 (09:00→20:36)
[2019-11-28] MEDS: LACTATED RINGERS 1,000 ML IV SCH (09:00)
[2019-11-28] MEDS: LORATADINE 10 MG TAB PO SCH (09:00)
[2019-11-28 09:11] LABS: ALT 131 U/L (4-34); AST 42 U/L (14-36); African American GFR (CKD) >90 (>60 ml/min/1.73 sqM); Albumin 3.8 g/dL (3.5-5.0); Alkaline Phosphatase 153 U/L (38-126); Anion Gap 5 mmol/L; Blood Urea Nitrogen 3 mg/dL (7-17); Carbon Dioxide 29 mmol/L (22-30); Chloride 105 mmol/L (98-107); Glucose 88 mg/dL (74-99); Non-African American GFR(CKD) >90 (>60 ml/min/1.73 sqM); Sodium 139 mmol/L (137-145); Total Bilirubin 0.7 mg/dL (0.2-1.3); Total Protein 6.4 g/dL (6.3-8.2)
[2019-11-28] MEDS ORDERED: IV FLUID CONTINUATION 950 ML IV ONE (11:29)
[2019-11-28] MEDS ORDERED: ONDANSETRON 4 MG/2 ML VIAL ONE (11:37)
[2019-11-28] MEDS ORDERED: ONDANSETRON 4 MG/2 ML VIAL IVP ONE ×2 (11:40→13:27)
[2019-11-28] MEDS ORDERED: DEXAMETHASONE SOD PHOSPHATE 10 MG/ML 1 ML VIAL IV ONE (11:41)
[2019-11-28] MEDS ORDERED: HEPARIN SODIUM,PORCINE 5,000 UNIT/ML 1 ML VIAL ONE (11:59)
[2019-11-28] MEDS ORDERED: HEPARIN SODIUM,PORCINE 5,000 UNIT/ML 1 ML VIAL SQ ONE (12:04)
[2019-11-28 12:07] VITALS: BMI 34.2
[2019-11-28] MEDS ORDERED: SUCCINYLCHOLINE CHLORIDE 100 MG/5 ML SYR IV ONE (12:39)
[2019-11-28] MEDS ORDERED: MIDAZOLAM 2 MG/2 ML VIAL ONE (12:39)
[2019-11-28] MEDS ORDERED: fentaNYL (PF) 50 MCG/ML 2 ML AMP ONE (12:39)
[2019-11-28] MEDS ORDERED: BUPIVACAINE (PF) 0.25% 30 ML VIAL SQ ONE (12:39)
[2019-11-28] MEDS ORDERED: LIDOCAINE 1% INJ 10MG/ML (20 ML MDV) ONE (12:39)
[2019-11-28] MEDS ORDERED: KETOROLAC 30 MG/ML 1 ML VIAL ONE (12:39)
[2019-11-28] MEDS ORDERED: ROCURONIUM 10 MG/ML (5 ML VIAL) IV ONE (12:39)
[2019-11-28] MEDS ORDERED: PHENYLEPHRINE-0.9% NACL SYG 1 MG/10 ML SYRINGE ONE (12:39)
[2019-11-28] MEDS ORDERED: NEOSTIGMINE 1 MG/ML 10 ML VIAL ONE (12:39)
[2019-11-28] MEDS ORDERED: GLYCOPYRROLATE 0.2 MG/ML 2 ML VIAL ONE (12:39)
[2019-11-28] MEDS ORDERED: PROPOFOL 10 MG/ML 20 ML VIAL IV ONE (12:39)
--- NOTE | 2019-11-28 13:11 | P.OP ---
Date of Procedure: 11/28/19 Preoperative Diagnosis: Cholecystitis Postoperative Diagnosis: Cholecystitis Procedure(s) Performed: Laparoscopic cholecystectomy Anesthesia: NEGRO Surgeon: Alec Mittal Estimated Blood Loss (ml): 10 Pathology: other (Gallbladder) Condition: stable Disposition: PACU Description of Procedure: The patient was placed on the operating table. The patient received a general endotracheal tube anesthesia. The patients abdomen was prepped and draped in the usual sterile fashion. Through an infraumbilical stab incision, the fascia of the anterior abdominal wall was grasped with a pair of Kochers and then the Veress needle was placed in the peritoneal cavity. Position of the Veress needle was confirmed with positive drop test. The abdomen was then insufflated. After adequate insufflation, the 10 mm trocar was placed in the peritoneal cavity. Following this the laparoscope was placed in the peritoneal cavity. The patient was placed in the head-up, right side up position and then a 5 mm trocar was placed in the right lateral and right subcostal position under direct visualization. A 8 mm trocar was placed in the epigastric position. The gallbladder was grasped in the fundus and infundibulum. Traction on the gallbladder was placed in the lateral and the cephalad positions. The triangle of Calot was visualized.. The cystic duct was bluntly dissected until the union of the cystic duct and common bile duct was seen. A critical view of safety was achieved. The cystic duct was then divided and sealed with the Harmonic scissors. A PDS Endoloop was then placed throughout the cystic duct stump. The cystic artery divided and sealed with the Harmonic scissors. The gallbladder was then removed from the liver bed using Harmonic scissors. The gallbladder was then extracted through the epigastric port site. Operative field was checked for any bleeding spots and Harmonic scissors was used to coagulate the liver bed. The abdomen was irrigated. The trocars were removed. The skin was closed using interrupted 3-0 Vicryl suture. Dermabond dressing were applied. The patient tolerated the procedure well.
[2019-11-28] MEDS: HYDROmorphone 0.5 MG/0.5 ML SYRINGE IVP PRN ×3 (13:28→14:10)
[2019-11-28] MEDS: MORPHINE SULFATE 4 MG/ML SYRINGE IV PRN ×2 (20:42→23:44)
--- NOTE | 2019-11-28 22:19 | P.PN ---
Subjective Progress Note Date: 11/28/19 Principal diagnosis: Epigastric abdominal pain, cholecystitis, elevated liver enzymes Patient seen lying in bed reporting some abdominal tenderness after laparoscopic cholecystectomy today. Otherwise no acute complaints. Objective - Vital Signs Vital signs: Vital Signs Temp 97.1 F L 11/28/19 13:16 Pulse 57 L 11/28/19 14:15 Resp 16 11/28/19 14:15 BP 95/55 11/28/19 14:15 Pulse Ox 99 11/28/19 14:15 Intake & Output 11/27/19 11/28/19 11/28/19 18:59 06:59 18:59 Intake Total 1075 850 Output Total 5 Balance 1075 845 Weight 90.3 kg Intake: IV 225 850 Sodium Chloride 0.9% 1, 225 000 ml @ 75 mls/hr IV . [id number] [facility] Rx#:[id number] Oral 850 Output: Estimated Blood Loss 5 Other: Voiding Method Toilet Toilet Toilet # Voids 1 2 1 # Bowel Movements 1 - Exam On physical examination, patient appears comfortable in no apparent distress. HEAD: Normocephalic, atraumatic. EYES: No scleral icterus. No conjunctival injection. MOUTH: No lesions, tongue midline. NECK: Trachea midline, no gross abnormalities. ABDOMEN: Soft, appropriately tender status post. Bowel sounds are positive. No organomegaly. No guarding or rigidity. EXTREMITIES: No pedal edema. SKIN: No rashes, no jaundice. NEUROLOGIC: Alert and oriented x3. No focal deficits. - Labs CBC & Chem 7: 11/27/19 04:19 11/28/19 08:23 Labs: Abnormal Lab Results - Last 24 Hours (Table) 11/28/19 Range/Units 08:23 BUN 3 L (7-17) mg/dL AST 42 H (14-36) U/L ALT 131 H (4-34) U/L Alkaline Phosphatase 153 H (38-126) U/L Assessment and Plan (1) Epigastric abdominal pain Narrative/Plan: 49-year-old female presents to the hospital with severe periumbilical sharp epigastric abdominal pain. Patient found to be hypotensive and bradycardic and sent to the intensive care unit for further monitoring and currently being evaluated by the cardiology service. Patient denies any nausea or vomiting in association with her symptoms or change in bowel habits or signs or symptoms of GI bleed. No prior endoscopic evaluation reported. Computed tomography scan significant only for some mild periportal edema suggestive of hepatitis. She did have elevation in her liver enzymes predominantly in a hepatocellular pattern with total bilirubin 0.8, alkaline phosphatase 166, AST 345 and ALT 253. Acute viral hepatitis panel testing negative. No prior cholecystectomy. EGD performed in evaluation significant only for mild gastritis unlikely the cause of the patient's pain. Given this fact and the elevation in liver enzymes patient had MRCP ordered which was consistent with acute cholecystitis. The patient is status post laparoscopic cholecystectomy and seen lying in bed. Current Visit: Yes Status: Acute Code(s): R10.13 - EPIGASTRIC PAIN SNOMED Code(s): 72530974 (2) Elevated liver enzymes Current Visit: Yes Status: Acute Code(s): R74.8 - ABNORMAL LEVELS OF OTHER SERUM ENZYMES SNOMED Code(s): 191979138 (3) GERD (gastroesophageal reflux disease) Current Visit: Yes Status: Acute Code(s): K21.9 - GASTRO-ESOPHAGEAL REFLUX DISEASE WITHOUT ESOPHAGITIS SNOMED Code(s): 794253449 Plan: Supportive care Regular diet ordered by the surgical service Defer further management to the surgical team EGD significant only for mild gastritis, MRCP showed acute cholecystitis and p atient is status post laparoscopic cholecystectomy Continue PPI therapy Continue monitor CBC, BMP, LFTs Thank you for allowing us to participate in the care of the patient, the GI service will stand by, please call us back with any questions or concerns
[2019-11-28] MEDS: ACETAMINOPHEN TAB 325 MG TAB PO PRN (23:32)
--- NOTE | 2019-11-29 01:51 | P.PN ---
Subjective Progress Note Date: 11/28/19 Principal diagnosis: Hypotension and Bradycardia Ms. Mota is a 49-year-old female with a past medical history of asthma, GERD, hypothyroidism, ovarian cyst, who follows with Dr. Manoj Piedra, in the outpatient setting, coming in with a chief complaint of epigastric pain associated with dizziness, nausea, diaphoresis. Patient denied having any history of such complaints in the past. She was having pain in the epigastric region that was radiating to the right side associated with nausea and vomiting. She denied having any diarrhea or hematemesis or blood in her stool. Patient denied using any alzm-ccw-lmucilc medications or herbal supplements. She said she was on vacation and trying to relax. She said that she did horse riding. In the ER patient was found to have bradycardia and hypotension. She required a central line placement and admitted to the ICU. Patient's labs showed hemoglobin of 12.1, sodium 137, potassium 4, chloride 112, bicarb 20, BUN 14, creatinine 0.58. Blood sugars have been within normal limits. LFT showed AST of 90, ALT of 53, alkaline phosphatase 113. Troponin was less than 0.012. Her urine analysis was negative for nitrites and leukocyte Estrace. UDS was positive for amphetamines. On 11/26/2019 -patient is still in the ICU. She does not have any active complaints other than mild epigastric pain. She denies having any nausea or vomiting. Patient denies having any fevers chills or rigors, no chest pain or palpitations. No cough or difficulty breathing. No dysuria or hematuria. Patient's blood pressure is within normal limits, no hypotensive episodes. Patient still in sinus bradycardia with heart rate as low as low 30s. On reviewing her labs AST 149, ALT 227, AFP level less than 2.5. On 11/27/2019 -patient is still in the ICU. She had MRCP done this morning and it shows mild diffuse fatty infiltration of the liver, small gallstones and gallbladder sludge with new mild to moderate concentric surrounding fluid raising concern for developing acute cholecystitis. Patient Is Happy to reason for her abdominal pain is gallbladder. She still complains of mild diffuse epi gastric pain radiating mostly towards the right side. Denies having any nausea or vomiting. She was a cooperative tolerate her breakfast this morning. Patient denies having any chest pain or palpitations. No cough or difficulty breathing no fever chills or rigors. Patient's labs from this morning show downtrend of AST and ALT and hemoglobin stable. On 11/28/2019 -patient had laparoscopic cholecystectomy done this afternoon. She states that her abdomen is sore. She is currently having her lunch. Patient denies having any chest pain or palpitations. No cough or difficulty breathing. No dysuria or hematuria. On reviewing the patient's vitals temperature 98.1, heart rate 57, respiratory rate 18, blood pressure 102/67, saturating at night. During the patient's labs sodium 139, potassium 4, creatinine 0.57. Active Medications Acetaminophen (Tylenol Tab) 650 mg PO Q6HR PRN PRN Reason: Mild Pain or Fever > 100.5 Last Admin: 11/26/19 08:50 Dose: 650 mg Documented by: Dicyclomine HCl (Bentyl) 20 mg PO QID PRN PRN Reason: Dyspepsia Lactated Ringer's (Lactated Ringers) 1,000 mls @ 20 mls/hr IV .Q24H [facility] Last Admin: 11/28/19 09:00 Dose: 20 mls/hr Documented by: Levothyroxine Sodium (Synthroid) 75 mcg PO DAILY@0630 [facility] Last Admin: 11/28/19 07:00 Dose: 75 mcg Documented by: Lidocaine HCl (.Xylocaine 1% Inj (10mg/Ml) For Iv Start) 0.1 ml INTRADERMA PER PROTOCOL PRN PRN Reason: IV Start Loratadine (Claritin) 10 mg PO DAILY [facility] Last Admin: 11/28/19 09:00 Dose: 10 mg Documented by: Miscellaneous Information (Potassium Per Protocol) 1 each MISCELLANE DAILY PRN; Protocol PRN Reason: Per Protocol Morphine Sulfate (Morphine Sulfate (Inj)) 4 mg IV Q4HR PRN PRN Reason: Severe Pain Last Admin: 11/28/19 23:44 Dose: 4 mg Documented by: Naloxone HCl (Narcan) 0.2 mg IV Q2M PRN PRN Reason: Opioid Reversal Pantoprazole Sodium (Protonix) 40 mg IV BID [facility] Last Admin: 11/28/19 20:36 Dose: 40 mg Documented by: Objective - Vital Signs Vital signs: Vital Signs Temp 98.1 F 11/28/19 19:30 Pulse 72 11/28/19 19:30 Resp 16 11/28/19 19:30 BP 105/69 11/28/19 19:30 Pulse Ox 93 L 11/28/19 19:30 Intake & Output 11/28/19 11/28/19 11/29/19 06:59 18:59 06:59 Intake Total 850 Output Total 105 100 Balance 745 -100 Weight 90.3 kg Intake: IV 850 Output: Urine 100 100 Estimated Blood Loss 5 Other: Voiding Method Toilet Toilet Toilet # Voids 2 1 - Exam PHYSICAL EXAMINATION: GENERAL: not in any acute distress. HEENT: Pupils are round and equally reacting to light. EOMI. No scleral icterus. No conjunctival pallor. Normocephalic, atraumatic. CARDIOVASCULAR: S 1 and s 2 heard. No additional sounds. PULMONARY: Bilateral breath sounds are positive. No wheeze or crackles. ABDOMEN: Soft,surgical scar from laproscopic procedure seen, nondistended, normoactive bowel sounds. No palpable organomegaly. MUSCULOSKELETAL: No joint swelling or deformity. EXTREMITIES: No cyanosis, clubbing, or pedal edema. NEUROLOGICAL: alert, awake, oriented X 3 , Gross neurological examination did not reveal any focal deficits. SKIN: No rashes - Labs CBC & Chem 7: 11/27/19 04:19 11/28/19 08:23 Labs: Abnormal Lab Results - Last 24 Hours (Table) 11/28/19 Range/Units 08:23 BUN 3 L (7-17) mg/dL AST 42 H (14-36) U/L ALT 131 H (4-34) U/L Alkaline Phosphatase 153 H (38-126) U/L Assessment and Plan Assessment: ASSESSMENT Severe epigastric pain - due to Cholecystitis s/p LAproscopic cholesctomy done on 11/28/19 Hypotension Symptomatic bradycardia Transaminitis CT of the abdomen showing periportal edema in the liver UDS positive for amphetamines - pt on adderral History of GERD Hypothyroidism Ovarian cyst Asthma PLAN: MRCP showing biliary sludge, surgery Dr. Mittal, has been consulted and she is s/p Laproscopic cholecystectomy done morning. Continue with the rest of her current medication regimen. Cardiology, GI, pulmonary on board and foll owing the patient closely. DVT prophylaxis-patient is ambulating. Further recommendations to follow depending on the progress of the patient.
[2019-11-29] MEDS: MORPHINE SULFATE 4 MG/ML SYRINGE IV PRN (05:35)
[2019-11-29] MEDS: LEVOTHYROXINE 75 MCG TAB PO SCH (05:35)
[2019-11-29] MEDS: PANTOPRAZOLE 40 MG/10 ML VIAL IV SCH (07:26)
[2019-11-29] MEDS: LORATADINE 10 MG TAB PO SCH (07:26)
[2019-11-29 08:02] VITALS: RESP 16
--- NOTE | 2019-11-29 10:23 | P.PN ---
Subjective Progress Note Date: 11/29/19 CHIEF COMPLAINT: Abdominal pain HISTORY OF PRESENT ILLNESS: Patient seen with Dr. Mittal. Patient is postop day #1 status post laparoscopic cholecystectomy. She tolerated surgery well and complications. She has been up and ambulating. Denies any nausea or vomiting. She is afebrile PHYSICAL EXAM: VITAL SIGNS: Reviewed. GENERAL: Well-developed in no acute distress. HEENT: No sclera icterus. Extraocular movements grossly intact. Moist buccal mucosa. Head is atraumatic, normocephalic. ABDOMEN: Soft. Nondistended. NEUROLOGIC: Alert and oriented. Cranial nerves II through XII grossly intact. ASSESSMENT: 1. Cholecystitis status post Laparoscopic cholecystectomy PLAN: -Patient can be discharged home from surgical standpoint -Patient to follow-up with Dr. Mittal in 1 week -Prescription for [place] and Colace Escribed for patient Physician Massage Operator note has been reviewed by physician. Signing provider agrees with the documented findings, assessment, and plan of care. Objective - Vital Signs Vital signs: Vital Signs Temp 98.5 F 11/29/19 07:00 Pulse 62 11/29/19 07:00 Resp 16 11/29/19 07:00 BP 97/58 11/29/19 07:00 Pulse Ox 92 L 11/29/19 07:00 Intake & Output 11/28/19 11/29/19 11/29/19 18:59 06:59 18:59 Intake Total 850 50 Output Total 105 100 Balance 745 -50 Weight 90.3 kg Intake: IV 850 Intake, IV Titration 50 Amount ceFAZolin 2 gm In Sodium 50 Chloride 0.9% 50 ml @ 100 mls/hr IVPB ONCE ONE Rx# :[id number] Output: Urine 100 100 Estimated Blood Loss 5 Other: Voiding Method Toilet Toilet Toilet # Voids 1 3 - Labs CBC & Chem 7: 11/27/19 04:19 11/28/19 08:23
[2019-11-29 11:04] LABS: Basophils % (A) 0 %; Eosinophils # (A) 0.1 k/uL (0-0.7); Eosinophils % (A) 2 %; HCT 36.2 % (34.0-46.0); HGB 11.9 gm/dL (11.4-16.0); Lymphocytes % (A) 22 %; MCH 30.2 pg (25.0-35.0); MCHC 32.8 g/dL (31.0-37.0); MCV 92.1 fL (80.0-100.0); Mean Platelet Volume 7.7; Monocytes # (A) 0.7 k/uL (0-1.0); Monocytes % (A) 8 %; Neutrophils # (A) 5.8 k/uL (1.3-7.7); Neutrophils % (A) 66 %; Platelet Count 244 k/uL (150-450); RBC 3.93 m/uL (3.80-5.40); RDW 13.3 % (11.5-15.5); WBC 8.8 k/uL (3.8-10.6)
[2019-11-29 12:41] LABS: African American GFR (CKD) >90 (>60 ml/min/1.73 sqM); Anion Gap 5 mmol/L; Blood Urea Nitrogen 9 mg/dL (7-17); Calcium 8.7 mg/dL (8.4-10.2); Carbon Dioxide 27 mmol/L (22-30); Chloride 101 mmol/L (98-107); Glucose 91 mg/dL (74-99); Non-African American GFR(CKD) >90 (>60 ml/min/1.73 sqM); Potassium 3.9 mmol/L (3.5-5.1); Sodium 133 mmol/L (137-145)
[2019-11-29 15:13] VITALS: BP 113/69; PULSE 74; TEMP 98.3
--- NOTE | 2019-11-29 17:10 | P.DS ---
Providers Date of admission: 11/25/19 04:23 Expected date of discharge: 11/29/19 Attending physician: Jackie Faust Consults: 11/25/19 04:20 Consult Physician Stat Consulting Provider: Ana Reed Consult Reason/Comments: ICU management Do you want consulting provider notified?: Already Contacted 11/25/19 04:22 Consult Physician Urgent Consulting Provider: [facility] Consult Reason/Comments: bradycardia with hypotension Do you want consulting provider notified?: Yes, Notify in am 11/27/19 11:31 Consult Physician Urgent Consulting Provider: Alec Mittal Consult Reason/Comments: cholecystitis, cholelithiasis Do you want consulting provider notified?: Yes [facility] Course: HPI - Ms. Mota is a 49-year-old female with a past medical history of asthma, GERD, hypothyroidism, ovarian cyst, who follows with Dr. Manoj Piedra, in the outpatient setting, coming in with a chief complaint of epig astric pain associated with dizziness, nausea, diaphoresis. Patient denied having any history of such complaints in the past. She was having pain in the epigastric region that was radiating to the right side associated with nausea and vomiting. She denied having any diarrhea or hematemesis or blood in her stool. Patient denied using any ucjp-von-ucpwalt medications or herbal supplements. She said she was on vacation and trying to relax. She said that she did horse riding. In the ER patient was found to have bradycardia and hypotension. She required a central line placement and admitted to the ICU. Patient's labs showed hemoglobin of 12.1, sodium 137, potassium 4, chloride 112, bicarb 20, BUN 14, creatinine 0.58. Blood sugars have been within normal limits. LFT showed AST of 90, ALT of 53, alkaline phosphatase 113. Troponin was less than 0.012. Her urine analysis was negative for nitrites and leukocyte Estrace. UDS was positive for amphetamines, as she is on Adereall. She was admitted to the ICU, heart monitor showing sinus bradycardia with heart rate between 40s to 50s. Her blood pressure is being maintained on the lower side with normal saline running at 130 cc/h. Patient is also started on IV Protonix. Hospital course- patient had a CAT scan of the abdomen showing periportal edema in the liver with elevated LFTs, GI was consulted and they ordered hepatitis panel, [employer], [employer], and urine and protein electrophoresis. Eventually patient had an EGD done on 11/26/2019 showing mild gastritis of the antrum and body, biopsies were taken. Later on MRCP was done on 11/27/2019 it was showing fatty infiltration of the liver with small gallstones and gallbladder sludge with mild to moderate concentric surrounding fluid raising concerns for developing acute cholecystitis. So surgical services were consulted and the patient had laparoscopic cholecystectomy done on 11/28/2019. Postop patient was doing fine and was able to tolerate diet by mouth. So the patient was discharged in a stable condition after clearance from GI, surgical services. DISCHARGE DIAGNOSIS Severe epigastric pain - due to Cholecystitis s/p LAproscopic cholesctomy done on 11/28/19 Hypotension - resolved Symptomatic bradycardia- resolved Transaminitis CT of the abdomen showing periportal edema in the liver UDS positive for amphetamines - pt on adderral History of GERD Hypothyroidism Ovarian cyst Asthma Follow-up: Patient is advised to follow up with her primary care physician in 2- 3 days and surgeon in 1 week. More than 30 minutes spent worse that discharge of the patient. CC to Dr. Manoj Mendez Patient Condition at Discharge: Fair Plan - Discharge Summary Discharge Rx Participant: Yes New Discharge Prescriptions: New Hydrocodone/Acetaminophen [Kinta 5-325] 1 tab PO Q4HR PRN 3 Days #18 tab PRN Reason: Pain Docusate [Colace] 100 mg PO BID #30 capsule Acetaminophen Tab [Tylenol Tab] 500 mg PO Q4H 4 Days #24 tablet Continue Norgestimate-Ethinyl Estradiol [Tri-Sprintec Tablet] 1 tab PO DAILY Multivitamins, Thera [Multivitamin (formulary)] 1 tab PO DAILY Omeprazole 20 mg PO BID Montelukast Sodium [Singulair] 10 mg PO HS Levothyroxine Sodium [Synthroid] 75 mcg PO DAILY Fluticasone Nasal [place] [Flonase Nasal [place]] 2 spr EA NOSTRIL DAILY Cetirizine HCl [Zyrtec] 10 mg PO DAILY Dextroamphetamine/Amphetamine [Adderall Xr] 30 mg PO QAM PRN PRN Reason: TAKES @WORK Albuterol Nebulized [Ventolin Nebulized] 2.5 mg INHALATION RT-Q4H PRN PRN Reason: Shortness Of Breath Omega3/Dha/Epa/Fish Oil/Vit D3 [[place]-3 + Vitamin D3 Softgel] 1 cap PO DAILY Discontinued Ibuprofen [Motrin] 800 mg PO TID PRN PRN Reason: Pain Discharge Medication List Albuterol Nebulized [Ventolin Nebulized] 2.5 mg INHALATION RT-Q4H PRN 11/25/19 [History] Cetirizine HCl [Zyrtec] 10 mg PO DAILY 11/25/19 [History] Dextroamphetamine/Amphetamine [Adderall Xr] 30 mg PO QAM PRN 11/25/19 [History] Fluticasone Nasal [place] [Flonase Nasal [place]] 2 spr EA NOSTRIL DAILY 11/25/19 [History] Levothyroxine Sodium [Synthroid] 75 mcg PO DAILY 11/25/19 [History] Montelukast Sodium [Singulair] 10 mg PO HS 11/25/19 [History] Multivitamins, Thera [Multivitamin (formulary)] 1 tab PO DAILY 11/25/19 [History] Norgestimate-Ethinyl Estradiol [Tri-Sprintec Tablet] 1 tab PO DAILY 11/25/19 [History] Omega3/Dha/Epa/Fish Oil/Vit D3 [[place]-3 + Vitamin D3 Softgel] 1 cap PO DAILY 11/25/19 [History] Omeprazole 20 mg PO BID 11/25/19 [History] Acetaminophen Tab [Tylenol Tab] 500 mg PO Q4H 4 Days #24 tablet 11/29/19 [Rx] Docusate [Colace] 100 mg PO BID #30 capsule 11/29/19 [Rx] Hydrocodone/Acetaminophen [Kinta 5-325] 1 tab PO Q4HR PRN 3 Days #18 tab 11/29/19 [Rx] Follow up Appointment(s)/Referral(s): Manoj Mendez DO [Primary Care Provider] - 1-2 days Alec Mittal MD [STAFF PHYSICIAN] - 1 Week Patient Instructions/Handouts: Laparoscopic Cholecystectomy (DC) Discharge Disposition: HOME SELF-CARE
[2019-11-29] MEDS ORDERED: PANTOPRAZOLE 40 MG TABLET PO SCH (17:30)
== END 2019-11-29 18:01 | disposition home or self-care (01) | DRG 418 ==
LOC: EC 20:54 → 2SICU 11-25 04:23 → 4SSUR 11-27 17:54
PROVIDERS: ADMIT Hospitalist; ATTEND Hospitalist
PROC: 02HV33Z Insertion of Infusion Device into Superior Vena Cava, Percutaneous Approach (ICD-10-PCS; 2019-11-24)
PROC: 0DB78ZX Excision of Stomach, Pylorus, Via Natural or Artificial Opening Endoscopic, Diagnostic (ICD-10-PCS; 2019-11-26)
PROC: 0DB98ZX Excision of Duodenum, Via Natural or Artificial Opening Endoscopic, Diagnostic (ICD-10-PCS; 2019-11-26)
PROC: 0FT44ZZ Resection of Gallbladder, Percutaneous Endoscopic Approach (ICD-10-PCS; principal; 2019-11-28 08:30)
DX: K80.10 Calculus of gallbladder with chronic cholecystitis without obstruction (principal); E87.2 Acidosis; K29.80 Duodenitis without bleeding; R00.1 Bradycardia, unspecified; I95.89 Other hypotension; K82.8 Other specified diseases of gallbladder; I10 Essential (primary) hypertension; J45.909 Unspecified asthma, uncomplicated; K29.70 Gastritis, unspecified, without bleeding; E03.9 Hypothyroidism, unspecified; K76.0 Fatty (change of) liver, not elsewhere classified; N83.209 Unspecified ovarian cyst, unspecified side; K59.00 Constipation, unspecified; D50.9 Iron deficiency anemia, unspecified; K21.9 Gastro-esophageal reflux disease without esophagitis; Z79.890 Hormone replacement therapy; Z79.899 Other long term (current) drug therapy; Z83.49 Family history of other endocrine, nutritional and metabolic diseases; Z82.49 Family history of ischemic heart disease and other diseases of the circulatory system
CPT/HCPCS: 36415; 36556; 43239; 71045; 71275; 74018; 74177; 74181; 76705; 80048; 80053; 80074; 80306; 81003; 81025; 82105; 82150; 82247; 82390; 82728; 83516; 83540; 83550; 83605; 83690; 83880; 84075; 84132; 84165; 84443; 84450; 84460; 84484; 85025; 85610; 85730; 86038; 86376; 88304; 88305; 93005; 93306; 96365; 96366; 96374; 96375; 99291; 99292

== ENCOUNTER → 2019-12-05 | Outpatient (CLI) | payer OTHER ==
--- NOTE | 2019-12-05 13:10 | US ---
EXAMINATION TYPE: US pelvic complete DATE OF EXAM: 12/05/2019 COMPARISON: US 01/12/18, CT 11/24/19 CLINICAL HISTORY: N82.201 ovarian cyst, N83.202 ovarian cyst. TECHNIQUE: Transabdominal (TA). Transabdominal sonographic images of the pelvis were acquired. Tra nsvaginal sonographic images were medically necessary to better assess the following anatomy: Date of LMP: 11/30/19 EXAM MEASUREMENTS: Uterus: 8.5 x 5.3 x 4.5 cm Endometrial Stripe: 0.3 cm Right Ovary: 3.4 x 2.1 x 2.0 cm Left Ovary: 2.8 x 2.0 x 1.4 cm 1. Uterus: Anteverted wnl 2. Endometrium: wnl 3. Right Ovary: with cyst = 2.6 x 1.5 x 1.7 cm 4. Left Ovary: wnl Spectral, color and waveform doppler imaging shows good arterial and venous flow within the ovaries ; there is no evidence for ovarian torsion. 5. Bilateral Adnexa: wnl 6. Posterior cul-de-sac: wnl IMPRESSION: 1. 2.6 cm right ovarian cyst. Most likely on the basis of a simple cyst. Recommend follow-up in 6-8 w eeks for resolution.
== END | disposition home or self-care (01) ==
LOC: RADUSWWP 12:29
PROVIDERS: ATTEND Family Medicine
DX: N83.201 Unspecified ovarian cyst, right side (principal); N83.202 Unspecified ovarian cyst, left side
CPT/HCPCS: 76856

== ENCOUNTER → 2020-02-27 | Outpatient (CLI) | payer OTHER ==
--- NOTE | 2020-02-27 17:38 | XR ---
Right hip HISTORY: Right hip pain 2 views the right hip Bone mineralization, joint spaces and alignment are maintained. IMPRESSION: Normal right hip.
--- NOTE | 2020-02-27 17:38 | XR ---
Lumbosacral spine HISTORY: Low back pain 5 views of lumbosacral spine Lumbar vertebral bodies show preserved height and alignment. Bone mineralization may be mildly reduce d. There is multilevel spondylosis. Sclerosis is present in the posterior elements. No evident spondy lolysis. There is mild levoscoliosis centered at L3. Some loss of disc height present L5-S1 and possi alexandrea L3-4, L2-3. IMPRESSION: Degenerative disc disease, facet arthropathy, spinal curvature.
== END | disposition home or self-care (01) ==
LOC: RADXRYALE 16:34
PROVIDERS: ATTEND Physician Assistant Medical
DX: M25.551 Pain in right hip (principal); M51.37 Other intervertebral disc degeneration, lumbosacral region; M47.817 Spondylosis without myelopathy or radiculopathy, lumbosacral region; M43.8X7 Other specified deforming dorsopathies, lumbosacral region
CPT/HCPCS: 72110; 73502

== ENCOUNTER 2021-03-19 18:37 | Observation (INO) | payer OTHER ==
--- NOTE | 2021-03-19 21:20 | XR ---
EXAMINATION TYPE: XR KUB DATE OF EXAM: 03/19/2021 COMPARISON: NONE HISTORY: Right upper quadrant pain TECHNIQUE: 2 views FINDINGS: There is no sign of intestinal obstruction or pneumoperitoneum. Lung bases are clear. Fecal pattern is normal. There are no pathologic calcifications over the kidneys. IMPRESSION: Nonacute abdomen.
[2021-03-19 22:08] LABS: Basophils % (A) 1 %; Eosinophils # (A) 0.1 k/uL (0-0.7); Eosinophils % (A) 1 %; HCT 39.8 % (34.0-46.0); HGB 13.7 gm/dL (11.4-16.0); Lymphocytes # (A) 1.1 k/uL (1.0-4.8); Lymphocytes % (A) 13 %; MCH 30.9 pg (25.0-35.0); MCHC 34.5 g/dL (31.0-37.0); MCV 89.6 fL (80.0-100.0); Mean Platelet Volume 7.5; Monocytes # (A) 0.6 k/uL (0-1.0); Monocytes % (A) 8 %; Neutrophils % (A) 76 %; Platelet Count 303 k/uL (150-450); RBC 4.44 m/uL (3.80-5.40); RDW 12.6 % (11.5-15.5); WBC 7.9 k/uL (3.8-10.6)
[2021-03-19 22:17] LABS: Albumin 4.5 g/dL (3.5-5.0); Chloride 100 mmol/L (98-107); Glucose 98 mg/dL (74-99); Total Protein 7.8 g/dL (6.3-8.2)
[2021-03-19 22:18] LABS: ALT 367 U/L (4-34); African American GFR (CKD) >90 (>60 ml/min/1.73 sqM); Alkaline Phosphatase 392 U/L (38-126); Anion Gap 6 mmol/L; Blood Urea Nitrogen 14 mg/dL (7-17); Calcium 9.4 mg/dL (8.4-10.2); Carbon Dioxide 30 mmol/L (22-30); Lipase 129 U/L (23-300); Non-African American GFR(CKD) >90 (>60 ml/min/1.73 sqM); Sodium 136 mmol/L (137-145); Total Bilirubin 0.9 mg/dL (0.2-1.3)
[2021-03-19 22:47] LABS: AST 881 U/L (14-36)
[2021-03-20] MEDS ORDERED: SODIUM CHLORIDE 0.9% 500 ML 500 ML IV ONE (00:15)
[2021-03-20] MEDS ORDERED: ONDANSETRON 4 MG/2 ML VIAL IVP STA (00:55)
[2021-03-20] MEDS ORDERED: MORPHINE SULFATE 4 MG/ML SYRINGE IVP STA (00:55)
--- NOTE | 2021-03-20 01:11 | US ---
EXAMINATION TYPE: US abdomen limited DATE OF EXAM: 03/20/2021 COMPARISON: US, CT CLINICAL HISTORY: Abd pain; elevated liver enzymes. EC patient with RUQ pain x 1 day; gallbladder rem gianfranco 2019 EXAM MEASUREMENTS: Liver Length: 15.9 cm Gallbladder Wall: surgically absent CBD: 0.9cm near head of pancreas Right Kidney: 9.8 x 5.1 x 3.8 cm Pancreas: hyperechoic as visualized Liver: no masses seen Gallbladder: surgically absent Evidence for sonographic Momin's sign: yes CBD: prominent, but can measure up to 1.0cm for post cholecystectomy patient Right Kidney: No hydronephrosis or masses seen IMPRESSION: No focal liver defect. No dilated ducts. Cholecystectomy noted. No evidence of right renal mass or ob struction.
[2021-03-20 01:55] LABS: Amorphous Sediment,Urine Rare /hpf; Appearance,Urine Cloudy (Clear); Bacteria,Urine Occasional /hpf; Bilirubin,Urine Negative (Negative); Blood,Urine Negative (Negative); Color,Urine Yellow; Glucose,Urine (UA) Negative (Negative); Ketones,Urine Negative (Negative); Leukocyte Esterase,Urine Negative (Negative); Nitrite,Urine Negative (Negative); Protein,Urine Negative (Negative); RBC,Urine 1 /hpf (0-5); Specific Gravity,Urine 1.009 (1.001-1.035); Squamous Epithelial Cell,Urine 4 /hpf (0-4); Urobilinogen,Urine <2.0 mg/dL (<2.0); WBC,Urine 10 /hpf (0-5)
--- NOTE | 2021-03-20 02:17 | ED ---
Abdominal Pain HPI - General Chief Complaint: Abdominal Pain Stated Complaint: Abd Pain, Rib Pain Time Seen by Provider: 03/20/21 00:14 Source: patient Mode of arrival: ambulatory Limitations: no limitations - History of Present Illness Initial Comments: 50 year-old female patient presents to the emergency department for evaluation of right upper quadrant and right rib pain. States it started a couple of days ago. States she did have nausea, vomiting, and some diarrhea. She does report having fevers initially but they have resolved. She did have cholecystectomy in 2019, but she states the pain feels similar. She denies any skin color change or white stools. Denies any recent travel or sick contacts. Denies any new medications. Denies significant alcohol use. Denies history of hepatitis. She is unsure regarding hepatitis vaccine status. - Related Data Home Medications Medication Instructions Recorded Confirmed Albuterol Nebulized [Ventolin 2.5 mg INHALATION RT-Q4H PRN 11/25/19 11/25/19 Nebulized] Cetirizine HCl [Zyrtec] 10 mg PO DAILY 11/25/19 11/25/19 Dextroamphetamine/Amphetamine 30 mg PO QAM PRN 11/25/19 11/25/19 [Adderall Xr] Fluticasone Nasal [place] [Flonase 2 spr EA NOSTRIL DAILY 11/25/19 11/25/19 Nasal [place]] Levothyroxine Sodium [Synthroid] 75 mcg PO DAILY 11/25/19 11/25/19 Montelukast Sodium [Singulair] 10 mg PO HS 11/25/19 11/25/19 Multivitamins, Thera [Multivitamin 1 tab PO DAILY 11/25/19 11/25/19 (formulary)] Norgestimate-Ethinyl Estradiol 1 tab PO DAILY 11/25/19 11/25/19 [Tri-Sprintec Tablet] Omega3/Dha/Epa/Fish Oil/Vit D3 1 cap PO DAILY 11/25/19 11/25/19 [Ace-3 + Vitamin D3 Softgel] Omeprazole 20 mg PO BID 11/25/19 11/25/19 Previous Rx's Medication Instructions Recorded Acetaminophen Tab [Tylenol Tab] 500 mg PO Q4H 4 Days #24 tablet 11/29/19 Docusate [Colace] 100 mg PO BID #30 capsule 11/29/19 Hydrocodone/Acetaminophen [[place] 1 tab PO Q4HR PRN 3 Days #18 tab 11/29/19 5-325] Allergies Allergy/AdvReac Type Severity Reaction Status Date / Time No Known Allergies Allergy Verified 03/19/21 20:24 Review of Systems ROS Statement: Those systems with pertinent positive or pertinent negative responses have been documented in the HPI. ROS Other: All systems not noted in ROS Statement are negative. Past Medical History Past Medical History: Asthma, GERD/Reflux, Thyroid Disorder Additional Past Medical History / Comment(s): Patient states she a leaky heart valve and ovarian cyst. History of Any Multi-Drug Resistant Organisms: None Reported Past Surgical History: No Surgical Hx Reported Past Anesthesia/Blood Transfusion Reactions: No Reported Reaction Additional Past Anesthesia/Blood Transfusion Reaction / Comment(s): Pt. has never recived blood products Past Psychological History: No Psychological Hx Reported Smoking Status: Never smoker Past Alcohol Use History: Occasional Past Drug Use History: None Reported - Past Family History Father Family Medical History: AFIB, AICD/Pacemaker Mother Family Medical History: Thyroid Disorder General Exam Limitations: no limitations General appearance: alert, in no apparent distress, other (This is a well-developed, well-nourished adult female in no acute distress.) ENT exam: Present: normal exam, normal oropharynx, mucous membranes moist Respiratory exam: Present: normal lung sounds bilaterally. Absent: respiratory distress, wheezes, rales, rhonchi, stridor Cardiovascular Exam: Present: regular rate, normal rhythm, normal heart sounds. Absent: systolic murmur, diastolic murmur, rubs, gallop, clicks GI/Abdominal exam: Present: soft, tenderness (Right upper quadrant, midepigastric), normal bowel sounds. Absent: distended, guarding, rebound, rigid Neurological exam: Present: alert, oriented X3, CN II-XII intact Psychiatric exam: Present: normal affect, normal mood Skin exam: Present: warm, dry, intact, normal color. Absent: rash Course Vital Signs 03/19/21 03/20/21 20:20 01:34 Temperature 98.6 F 98.7 F Pulse Rate 80 63 Respiratory 22 18 Rate Blood Pressure 135/78 106/70 O2 Sat by Pulse 100 99 Oximetry Medical Decision Making - Medical Decision Making 50-year-old female patient presented to the emergency department today for evaluation of midepigastric and right upper quadrant abdominal pain. Physical examination did reveal midepigastric and right upper quadrant tenderness. She is afebrile, vital signs. Labs reviewed and did reveal elevated LFTs. Bilirubin is normal. Ultrasound was obtained and was negative. There are no dilated ducts. She'll be admitted to the hospital for further evaluation and treatment. Case is discussed with my attending Dr. Worthington. - Lab Data Result diagrams: 03/19/21 21:41 03/19/21 21:41 Lab Results 03/19/21 03/19/21 03/19/21 Range/Units 21:41 21:41 21:41 WBC 7.9 (3.8-10.6) k/uL RBC 4.44 (3.80-5.40) m/uL Hgb 13.7 (11.4-16.0) gm/dL Hct 39.8 (34.0-46.0) % MCV 89.6 (80.0-100.0) fL MCH 30.9 (25.0-35.0) pg MCHC 34.5 (31.0-37.0) g/dL RDW 12.6 (11.5-15.5) % Plt Count 303 (150-450) k/uL MPV 7.5 Neutrophils % 76 % Lymphocytes % 13 % Monocytes % 8 % Eosinophils % 1 % Basophils % 1 % Neutrophils # 6.0 (1.3-7.7) k/uL Lymphocytes # 1.1 (1.0-4.8) k/uL Monocytes # 0.6 (0-1.0) k/uL Eosinophils # 0.1 (0-0.7) k/uL Basophils # 0.0 (0-0.2) k/uL Sodium 136 L (137-145) mmol/L Potassium 4.0 (3.5-5.1) mmol/L Chloride 100 (98-107) mmol/L Carbon Dioxide 30 (22-30) mmol/L Anion Gap 6 mmol/L BUN 14 (7-17) mg/dL Creatinine 0.66 (0.52-1.04) mg/dL Est GFR (CKD-EPI)AfAm >90 (>60 ml/min/1.73 sqM) Est GFR (CKD-EPI)NonAf >90 (>60 ml/min/1.73 sqM) Glucose 98 (74-99) mg/dL Plasma Lactic Acid Boyd 0.5 L (0.7-2.0) mmol/L Calcium 9.4 (8.4-10.2) mg/dL Total Bilirubin 0.9 (0.2-1.3) mg/dL AST 881 H (14-36) U/L ALT 367 H (4-34) U/L Alkaline Phosphatase 392 H (38-126) U/L Troponin I (0.000-0.034) ng/mL Total Protein 7.8 (6.3-8.2) g/dL Albumin 4.5 (3.5-5.0) g/dL Lipase 129 (23-300) U/L Urine Color Urine Appearance (Clear) Urine pH (5.0-8.0) Ur Specific [place] (1.001-1.035) Urine Protein (Negative) Urine Glucose (UA) (Negative) Urine Ketones (Negative) Urine Blood (Negative) Urine Nitrite (Negative) Urine Bilirubin (Negative) Urine Urobilinogen (<2.0) mg/dL Ur Leukocyte Esterase (Negative) Urine RBC (0-5) /hpf Urine WBC (0-5) /hpf Ur Squamous Epith Cells (0-4) /hpf Amorphous Sediment (None) /hpf Urine Bacteria (None) /hpf 03/19/21 03/20/21 Range/Units 21:41 01:34 WBC (3.8-10.6) k/uL RBC (3.80-5.40) m/uL Hgb (11.4-16.0) gm/dL Hct (34.0-46.0) % MCV (80.0-100.0) fL MCH (25.0-35.0) pg MCHC (31.0-37.0) g/dL RDW (11.5-15.5) % Plt Count (150-450) k/uL MPV Neutrophils % % Lymphocytes % % Monocytes % % Eosinophils % % Basophils % % Neutrophils # (1.3-7.7) k/uL Lymphocytes # (1.0-4.8) k/uL Monocytes # (0-1.0) k/uL Eosinophils # (0-0.7) k/uL Basophils # (0-0.2) k/uL Sodium (137-145) mmol/L Potassium (3.5-5.1) mmol/L Chloride (98-107) mmol/L Carbon Dioxide (22-30) mmol/L Anion Gap mmol/L BUN (7-17) mg/dL Creatinine (0.52-1.04) mg/dL Est GFR (CKD-EPI)AfAm (>60 ml/min/1.73 sqM) Est GFR (CKD-EPI)NonAf (>60 ml/min/1.73 sqM) Glucose (74-99) mg/dL Plasma Lactic Acid [place] (0.7-2.0) mmol/L Calcium (8.4-10.2) mg/dL Total Bilirubin (0.2-1.3) mg/dL AST (14-36) U/L ALT (4-34) U/L Alkaline Phosphatase (38-126) U/L Troponin I <0.012 (0.000-0.034) ng/mL Total Protein (6.3-8.2) g/dL Albumin (3.5-5.0) g/dL Lipase (23-300) U/L Urine Color Yellow Urine Appearance Cloudy H (Clear) Urine pH 6.0 (5.0-8.0) Ur Specific [place] 1.009 (1.001-1.035) Urine Protein Negative (Negative) Urine Glucose (UA) Negative (Negative) Urine Ketones Negative (Negative) Urine Blood Negative (Negative) Urine Nitrite Negative (Negative) Urine Bilirubin Negative (Negative) Urine Urobilinogen <2.0 (<2.0) mg/dL Ur Leukocyte Esterase Negative (Negative) Urine RBC 1 (0-5) /hpf Urine WBC 10 H (0-5) /hpf Ur Squamous Epith Cells 4 (0-4) /hpf Amorphous Sediment Rare H (None) /hpf Urine Bacteria Occasional H (None) /hpf - EKG Data -: EKG Interpreted by Me EKG Comments: EKG obtained at 2141 shows normal sinus rhythm with a ventricular rate is 73, NE interval 134, QRS duration 86, QT 394, QTC 434. No evidence of ST elevation or depression. - Radiology Data Radiology results: report reviewed, image reviewed Ultrasound of the right upper quadrant abdomen is obtained. Report was reviewed in its entirety. Impression by Dr. Joaquin shows no focal liver defect. No dilated ducts. Cholecystectomy noted. No evidence of right renal mass or obstruction. Disposition Clinical Impression: Abdominal pain, Elevated LFTs Disposition: ADMITTED IP TO THIS [facility] Condition: Serious Decision to Admit Reason: Admit from EC Decision Date: 03/20/21 Decision Time: 02:35
[2021-03-20] MEDS ORDERED: NALOXONE 0.4 MG/ML 1 ML VIAL IV PRN (02:34)
[2021-03-20] MEDS ORDERED: ONDANSETRON 4 MG/2 ML VIAL IVP PRN (02:34)
[2021-03-20 03:27] LABS: INR 0.9 (<1.2); Prothrombin Time 10.2 sec (9.0-12.0)
[2021-03-20] MEDS: SODIUM CHLORIDE 0.9% 1,000 ML IV SCH ×2 (04:33→15:45)
[2021-03-20] MEDS: MORPHINE SULFATE 4 MG/ML SYRINGE IV PRN ×2 (04:46→18:45)
[2021-03-20 09:19] LABS: Hepatitis A Antibody IgM Nonreactive (Nonreactive); Hepatitis B Core IgM Nonreactive (Nonreactive); Hepatitis B Surface Antigen Nonreactive (Nonreactive); Hepatitis C IgG Antibody Nonreactive (Nonreactive)
--- NOTE | 2021-03-20 11:35 | P.GSCN ---
History of Present Illness Consult date: 03/20/21 Reason for Consult: Abdominal pain History of present illness: Is a 42-year-old female who has complaints of right quadrant abdominal pain. Dameon lam states he has pain similar to her previous attacks of cholecystitis. Patient had previous cholecystectomy by another surgeon approximately 15 months ago. Past Medical History Past Medical History: Asthma, GERD/Reflux, Thyroid Disorder Additional Past Medical History / Comment(s): Patient states she a leaky heart valve and ovarian cyst. History of Any Multi-Drug Resistant Organisms: None Reported Past Surgical History: Cholecystectomy Past Anesthesia/Blood Transfusion Reactions: No Reported Reaction Additional Past Anesthesia/Blood Transfusion Reaction / Comm: Pt. has never received blood products Past Psychological History: No Psychological Hx Reported Smoking Status: Never smoker Past Alcohol Use History: Occasional Past Drug Use History: None Reported - Past Family History Father Family Medical History: AFIB, AICD/Pacemaker Mother Family Medical History: Thyroid Disorder Medications and Allergies Home Medications Medication Instructions Recorded Confirmed Type Cetirizine HCl [Zyrtec] 10 mg PO DAILY 11/25/19 03/20/21 History Dextroamphetamine/Amphetamine 30 mg PO DAILY PRN 11/25/19 03/20/21 History [Adderall Xr] Fluticasone Nasal [place] [Flonase 1 spr EA NOSTRIL DAILY 11/25/19 03/20/21 History Nasal [place]] Levothyroxine Sodium [Synthroid] 75 mcg PO DAILY 11/25/19 03/20/21 History Montelukast Sodium [Singulair] 10 mg PO HS 11/25/19 03/20/21 History Albuterol Sulfate [Proair Hfa] 1 - 2 puff INHALATION RT-Q6H PRN 03/20/21 03/20/21 History Ibuprofen [Motrin Ib] 800 mg PO Q8H PRN 03/20/21 03/20/21 History L.acidoph,Paracasei, B.lactis 1 cap PO DAILY 03/20/21 03/20/21 History [Probiotic] Omeprazole Magnesium [PriLOSEC OTC] 20 mg PO DAILY 03/20/21 03/20/21 History Allergies Allergy/AdvReac Type Severity Reaction Status Date / Time No Known Allergies Allergy Verified 03/20/21 08:45 Surgical - Exam Vital Signs Temp Pulse Resp BP Pulse Ox 98.6 F 80 22 135/78 100 03/19/21 20:20 03/19/21 20:20 03/19/21 20:20 03/19/21 20:20 03/19/21 20:20 - General well developed, well nourished, no distress - Eyes PERRL - ENT normal pinna - Neck no masses - Respiratory normal expansion - Cardiovascular Rhythm: regular - Abdomen Abdomen: soft, non tender Results - Labs 03/19/21 21:41 03/19/21 21:41 Abnormal Lab Results - Last 24 Hours (Table) 03/19/21 03/19/21 03/20/21 Range/Units 21:41 21:41 01:34 Sodium 136 L (137-145) mmol/L Plasma Lactic Acid [place] 0.5 L (0.7-2.0) mmol/L AST 881 H (14-36) U/L ALT 367 H (4-34) U/L Alkaline Phosphatase 392 H (38-126) U/L Urine Appearance Cloudy H (Clear) Urine WBC 10 H (0-5) /hpf Amorphous Sediment Rare H (None) /hpf Urine Bacteria Occasional H (None) /hpf Diabetes panel 03/19/21 Range/Units 21:41 Sodium 136 L (137-145) mmol/L Potassium 4.0 (3.5-5.1) mmol/L Chloride 100 (98-107) mmol/L Carbon Dioxide 30 (22-30) mmol/L BUN 14 (7-17) mg/dL Creatinine 0.66 (0.52-1.04) mg/dL Glucose 98 (74-99) mg/dL Calcium 9.4 (8.4-10.2) mg/dL AST 881 H (14-36) U/L ALT 367 H (4-34) U/L Alkaline Phosphatase 392 H (38-126) U/L Total Protein 7.8 (6.3-8.2) g/dL Albumin 4.5 (3.5-5.0) g/dL Calcium panel 03/19/21 Range/Units 21:41 Calcium 9.4 (8.4-10.2) mg/dL Albumin 4.5 (3.5-5.0) g/dL Pituitary panel 03/19/21 Range/Units 21:41 Sodium 136 L (137-145) mmol/L Potassium 4.0 (3.5-5.1) mmol/L Chloride 100 (98-107) mmol/L Carbon Dioxide 30 (22-30) mmol/L BUN 14 (7-17) mg/dL Creatinine 0.66 (0.52-1.04) mg/dL Glucose 98 (74-99) mg/dL Calcium 9.4 (8.4-10.2) mg/dL Adrenal panel 03/19/21 Range/Units 21:41 Sodium 136 L (137-145) mmol/L Potassium 4.0 (3.5-5.1) mmol/L Chloride 100 (98-107) mmol/L Carbon Dioxide 30 (22-30) mmol/L BUN 14 (7-17) mg/dL Creatinine 0.66 (0.52-1.04) mg/dL Glucose 98 (74-99) mg/dL Calcium 9.4 (8.4-10.2) mg/dL Total Bilirubin 0.9 (0.2-1.3) mg/dL AST 881 H (14-36) U/L ALT 367 H (4-34) U/L Alkaline Phosphatase 392 H (38-126) U/L Total Protein 7.8 (6.3-8.2) g/dL Albumin 4.5 (3.5-5.0) g/dL Assessment and Plan Plan: Evidence of choledocholithiasis. Patient should undergo ERCP.
[2021-03-20] MEDS ORDERED: NON FORMULARY DRUG (Dextroamphetamine/Amphetamine [Adderall Xr] 30 MG Cap.Er.24h) PO PRN (13:08)
[2021-03-20] MEDS ORDERED: ALBUTEROL NEBULIZED 2.5 MG/3 ML INHALATION PRN (13:08)
[2021-03-20] MEDS: PANTOPRAZOLE 40 MG TABLET PO SCH (13:36)
[2021-03-20] MEDS ORDERED: IBUPROFEN 400 MG TAB PO STA (13:49)
[2021-03-20] MEDS: MONTELUKAST 10 MG TAB PO SCH (13:56)
[2021-03-20] MEDS: LEVOTHYROXINE 75 MCG TAB PO SCH (13:56)
[2021-03-20] MEDS: FLUTICASONE 50MCG/SPRAY NASAL 16GM EA NOSTRIL SCH (13:56)
[2021-03-20 15:29] LABS: ALT 470 U/L (4-34); AST 447 U/L (14-36); African American GFR (CKD) >90 (>60 ml/min/1.73 sqM); Albumin 3.5 g/dL (3.5-5.0); Alkaline Phosphatase 295 U/L (38-126); Anion Gap 5 mmol/L; Blood Urea Nitrogen 13 mg/dL (7-17); Calcium 8.7 mg/dL (8.4-10.2); Carbon Dioxide 28 mmol/L (22-30); Chloride 103 mmol/L (98-107); Glucose 101 mg/dL (74-99); Non-African American GFR(CKD) >90 (>60 ml/min/1.73 sqM); Potassium 3.6 mmol/L (3.5-5.1); Sodium 136 mmol/L (137-145); Total Bilirubin 0.5 mg/dL (0.2-1.3); Total Protein 6.3 g/dL (6.3-8.2)
[2021-03-20] MEDS: HEPARIN SODIUM,PORCINE/PF 5,000 UNIT/0.5 ML SYRINGE SQ SCH ×2 (15:45→23:14)
[2021-03-20] MEDS ORDERED: MONTELUKAST 10 MG TAB PO SCH (21:00)
--- NOTE | 2021-03-20 21:37 | P.HPIM ---
History of Present Illness H&P Date: 03/20/21 Chief Complaint: Abdominal pain Patient is a 50-year-old female with a known history of asthma, GERD, hypothyroidism and previous history of cholecystectomy presents to ER with complaints of abdominal pain. Abdominal pain is mainly in the right upper quadrant and also in the epigastric on the right side.. Patient states that she had soft stools for the past 2 to 3 days and yesterday developed severe abdominal pain which made her to come to ER. Pain felt like similar to previous pain when she had cholecystectomy. She did have nausea and episodes of vomiting. Patient states that she had fevers initially but they have been resolved. Patient had cholecystectomy in 2019. Denied any recent illnesses. No history of prior hepatitis. No recent travel or sick contacts. On admission blood pressure 132/78 pulse is 80 and respirations 22 pulse ox 100% on room air Ultrasound of the abdomen showed no focal liver defect. No dilated ducts. Cholecystectomy noted. No evidence of right renal mass or obstruction. KUB x-ray showed nonacute abdomen. EKG showed normal sinus rhythm. Laboratory data showed WBC 7.9 hemoglobin 13.7 and platelets was 303 Sodium 136 potassium 4.0 chloride 100 bicarb is 30 BUN 49 creatinine 0.66 lactic acid 0.5 AST 81 ALT 367 alk phos 392 and troponin 0 0.012 lipase 129 Urinalysis is negative for infection. Hepatitis panel negative coronavirus PCR not detected. Review of Systems Constitutional: Patient denies any fever or chills . No generalized weakness or weight loss. Abdomen: Patient denied nausea vomiting and diarrhea and abdominal pain. Cardiovascular: Patient denies any chest pain or short of breath no palpitations. Respiratory: patient denied any cough or sputum production. No shortness of breath Neurologic: Patient denied any numbness or tingling headache. Musculoskeletal: Patient denies any complaints of joint swelling or deformity. Skin: Negative Psychiatric: Negative Endocrine: No heat or cold intolerance. No recent weight gain. Genitourinary: No dysuria or hematuria. All other 14 point ROS negative except the above Past Medical History Past Medical History: Asthma, GERD/Reflux, Thyroid Disorder Additional Past Medical History / Comment(s): Patient states she a leaky heart valve and ovarian cyst. History of Any Multi-Drug Resistant Organisms: None Reported Past Surgical History: Cholecystectomy Past Anesthesia/Blood Transfusion Reactions: No Reported Reaction Additional Past Anesthesia/Blood Transfusion Reaction / Comment(s): Pt. has never received blood products Past Psychological History: No Psychological Hx Reported Smoking Status: Never smoker Past Alcohol Use History: Occasional Past Drug Use History: None Reported - Past Family History Father Family Medical History: AFIB, AICD/Pacemaker Mother Family Medical History: Thyroid Disorder Medications and Allergies Home Medications Medication Instructions Recorded Confirmed Type Cetirizine HCl [Zyrtec] 10 mg PO DAILY 11/25/19 03/20/21 History Dextroamphetamine/Amphetamine 30 mg PO DAILY PRN 11/25/19 03/20/21 History [Adderall Xr] Fluticasone Nasal [place] [Flonase 1 spr EA NOSTRIL DAILY 11/25/19 03/20/21 History Nasal [place]] Levothyroxine Sodium [Synthroid] 75 mcg PO DAILY 11/25/19 03/20/21 History Montelukast Sodium [Singulair] 10 mg PO HS 11/25/19 03/20/21 History Albuterol Sulfate [Proair Hfa] 1 - 2 puff INHALATION RT-Q6H PRN 03/20/21 03/20/21 History Ibuprofen [Motrin Ib] 800 mg PO Q8H PRN 03/20/21 03/20/21 History L.acidoph,Paracasei, B.lactis 1 cap PO DAILY 03/20/21 03/20/21 History [Probiotic] Omeprazole Magnesium [PriLOSEC OTC] 20 mg PO DAILY 03/20/21 03/20/21 History Allergies Allergy/AdvReac Type Severity Reaction Status Date / Time No Known Allergies Allergy Verified 03/20/21 08:45 Physical Exam Vitals: Vital Signs Temp Pulse Pulse Resp BP BP Pulse Ox 03/20/21 08:13 98.0 F 67 16 111/71 97 03/20/21 04:33 97.8 F 55 L 16 107/69 100 03/20/21 04:00 97.8 F 62 18 110/76 100 03/20/21 01:34 98.7 F 63 18 106/70 99 03/19/21 20:20 98.6 F 80 22 135/78 100 Intake and Output 03/19/21 03/20/21 03/20/21 22:59 06:59 14:59 Intake Total 150 Balance 150 Intake: Intake, IV Titration 150 Amount Sodium Chloride 0.9% 1, 150 000 ml @ 75 mls/hr IV . [id number] [facility] Rx#:[id number] Other: Voiding Method Toilet # Voids 1 Weight 80.739 kg 83.1 kg PHYSICAL EXAMINATION: Patient is lying in the bed comfortably, no acute distress, awake alert and oriented.. HEENT: Normocephalic. Neck is supple. Pupils reactive. Nostrils clear. Oral cavity is moist. Neck reveals no JVD, carotid bruits, or thyromegaly. CHEST EXAMINATION: Trachea is central. Symmetrical expansion. Lung red clear to auscultation and percussion. CARDIAC: Normal S1, S2 with no gallops. No murmurs ABDOMEN: Soft. Bowel sounds normal. No organomegaly. No abdominal bruits. Extremities: reveal no edema. No clubbing or cyanosis Neurologically awake, alert, oriented x3 with well-coordinated movements. No focal deficits noted Skin: No rash or skin lesions. Psychiatric: Cooperative. Nonsuicidal Musculoskeletal: No joint swelling or deformity. Normal range of motion. Results CBC & Chem 7: 03/19/21 21:41 03/20/21 14:36 Labs: Abnormal Lab Results - Last 24 Hours (Table) 03/19/21 03/19/21 03/20/21 Range/Units 21:41 21:41 01:34 Sodium 136 L (137-145) mmol/L Plasma Lactic Acid [place] 0.5 L (0.7-2.0) mmol/L AST 881 H (14-36) U/L ALT 367 H (4-34) U/L Alkaline Phosphatase 392 H (38-126) U/L Urine Appearance Cloudy H (Clear) Urine WBC 10 H (0-5) /hpf Amorphous Sediment Rare H (None) /hpf Urine Bacteria Occasional H (None) /hpf Thrombosis Risk Factor Assmnt - DVT/VTE Prophylaxis DVT/VTE Prophylaxis: Pharmacologic Prophylaxis ordered - Choose All That Apply Each Factor Represents 1 point: Age 41-60 years, Obesity (BMI >25) Thrombosis Risk Factor Assessment Total Risk Factor Score: 2 Thrombosis Risk Factor Assessment Level: Low Risk Assessment and Plan Assessment: Right upper quadrant abdominal pain with elevated liver enzymes. Possible choledocholithiasis. Patient has history of cholecystectomy. Elevated AST ALT and alk phos. Bilirubin level 0.9 History of cholecystectomy in 2019 Asthma not in exacerbation GERD Hypothyroidism DVT prophylaxis Heparin subcu Plan: Patient will be continued on IV hydration and pain management. Patient does have possible choledocholithiasis. Continue to monitor LFTs. General surgery was consulted. Gastroenterology service is not available at this time. No hyp erbilirubinemia. Follow clinical status closely.Patient states that pain is almost resolved.
[2021-03-20] MEDS ORDERED: ACETAMINOPHEN TAB 325 MG TAB PO PRN (23:06)
[2021-03-21 02:02] VITALS: RESP 16
[2021-03-21 06:08] LABS: Basophils % (A) 1 %; Eosinophils # (A) 0.2 k/uL (0-0.7); Eosinophils % (A) 4 %; HCT 35.7 % (34.0-46.0); Lymphocytes # (A) 1.8 k/uL (1.0-4.8); Lymphocytes % (A) 44 %; MCH 30.8 pg (25.0-35.0); MCHC 33.6 g/dL (31.0-37.0); MCV 91.7 fL (80.0-100.0); Monocytes # (A) 0.4 k/uL (0-1.0); Monocytes % (A) 10 %; Neutrophils # (A) 1.6 k/uL (1.3-7.7); Neutrophils % (A) 38 %; Platelet Count 266 k/uL (150-450); RDW 12.8 % (11.5-15.5); WBC 4.1 k/uL (3.8-10.6)
[2021-03-21 06:21] LABS: ALT 328 U/L (4-34); AST 175 U/L (14-36); African American GFR (CKD) >90 (>60 ml/min/1.73 sqM); Albumin 3.1 g/dL (3.5-5.0); Alkaline Phosphatase 247 U/L (38-126); Anion Gap 5 mmol/L; Blood Urea Nitrogen 10 mg/dL (7-17); Calcium 8.3 mg/dL (8.4-10.2); Carbon Dioxide 26 mmol/L (22-30); Chloride 107 mmol/L (98-107); Glucose 86 mg/dL (74-99); Non-African American GFR(CKD) >90 (>60 ml/min/1.73 sqM); Potassium 4.3 mmol/L (3.5-5.1); Sodium 138 mmol/L (137-145); Total Bilirubin 0.5 mg/dL (0.2-1.3); Total Protein 5.8 g/dL (6.3-8.2)
[2021-03-21] MEDS: LEVOTHYROXINE 75 MCG TAB PO SCH (06:56)
[2021-03-21] MEDS: SODIUM CHLORIDE 0.9% 1,000 ML IV SCH ×2 (06:57→18:02)
[2021-03-21] MEDS: PANTOPRAZOLE 40 MG TABLET PO SCH (08:02)
[2021-03-21] MEDS: MONTELUKAST 10 MG TAB PO SCH (08:02)
[2021-03-21] MEDS: FLUTICASONE 50MCG/SPRAY NASAL 16GM EA NOSTRIL SCH (08:03)
[2021-03-21] MEDS: HEPARIN SODIUM,PORCINE/PF 5,000 UNIT/0.5 ML SYRINGE SQ SCH ×2 (08:03→16:13)
[2021-03-21] MEDS ORDERED: FLUTICASONE 50MCG/SPRAY NASAL 16GM EA NOSTRIL SCH (09:00)
[2021-03-21] MEDS ORDERED: LEVOTHYROXINE 75 MCG TAB PO SCH (09:00)
[2021-03-21] MEDS ORDERED: NON FORMULARY DRUG (Omeprazole Magnesium [Prilosec Otc] 20 MG Tablet) PO SCH (09:00)
--- NOTE | 2021-03-21 11:29 | P.PN ---
Progress Note - Text Progress Note Date: 03/21/21 Patient feels better. Her liver enzymes have improved. On exam vital signs are stable. Abdomen soft. There is some minimal tenderness right quadrant. Patient most likely has had choledocholithiasis and has passed a gallstone. If her liver enzymes do not come down further she will need a MRCP.
[2021-03-22] MEDS: HEPARIN SODIUM,PORCINE/PF 5,000 UNIT/0.5 ML SYRINGE SQ SCH ×3 (00:24→17:21)
[2021-03-22] MEDS: SODIUM CHLORIDE 0.9% 1,000 ML IV SCH (00:25)
[2021-03-22] MEDS: PANTOPRAZOLE 40 MG TABLET PO SCH (05:58)
[2021-03-22] MEDS: LEVOTHYROXINE 75 MCG TAB PO SCH (05:59)
[2021-03-22 06:55] LABS: Basophils % (A) 1 %; Eosinophils # (A) 0.1 k/uL (0-0.7); Eosinophils % (A) 3 %; HCT 36.3 % (34.0-46.0); HGB 12.2 gm/dL (11.4-16.0); Lymphocytes # (A) 1.8 k/uL (1.0-4.8); Lymphocytes % (A) 35 %; MCH 30.3 pg (25.0-35.0); MCHC 33.7 g/dL (31.0-37.0); MCV 89.9 fL (80.0-100.0); Mean Platelet Volume 7.8; Monocytes # (A) 0.5 k/uL (0-1.0); Monocytes % (A) 9 %; Neutrophils # (A) 2.5 k/uL (1.3-7.7); Neutrophils % (A) 49 %; Platelet Count 290 k/uL (150-450); RBC 4.04 m/uL (3.80-5.40); RDW 12.7 % (11.5-15.5)
[2021-03-22 07:19] LABS: ALT 246 U/L (4-34); AST 70 U/L (14-36); African American GFR (CKD) >90 (>60 ml/min/1.73 sqM); Albumin 3.4 g/dL (3.5-5.0); Alkaline Phosphatase 235 U/L (38-126); Anion Gap 4 mmol/L; Blood Urea Nitrogen 4 mg/dL (7-17); Calcium 9.1 mg/dL (8.4-10.2); Carbon Dioxide 31 mmol/L (22-30); Chloride 103 mmol/L (98-107); Glucose 94 mg/dL (74-99); Non-African American GFR(CKD) >90 (>60 ml/min/1.73 sqM); Potassium 4.1 mmol/L (3.5-5.1); Sodium 138 mmol/L (137-145); Total Bilirubin 0.4 mg/dL (0.2-1.3); Total Protein 6.3 g/dL (6.3-8.2)
[2021-03-22] MEDS: FLUTICASONE 50MCG/SPRAY NASAL 16GM EA NOSTRIL SCH (10:10)
[2021-03-22] MEDS: MONTELUKAST 10 MG TAB PO SCH (10:10)
--- NOTE | 2021-03-22 11:10 | P.PN ---
Subjective Progress Note Date: 03/21/21 Principal diagnosis: Right upper quadrant abdominal pain Patient is a 50-year-old female with a known history of asthma, GERD, hypothyroidism and previous history of cholecystectomy presents to ER with complaints of abdominal pain. Abdominal pain is mainly in the right upper qu adrant and also in the epigastric on the right side.. Patient states that she had soft stools for the past 2 to 3 days and yesterday developed severe abdominal pain which made her to come to ER. Pain felt like similar to previous pain when she had cholecystectomy. She did have nausea and episodes of vomiting. Patient states that she had fevers initially but they have been resolved. Patient had cholecystectomy in 2019. Denied any recent illnesses. No history of prior hepatitis. No recent travel or sick contacts. On admission blood pressure 132/78 pulse is 80 and respirations 22 pulse ox 100% on room air Ultrasound of the abdomen showed no focal liver defect. No dilated ducts. Cholecystectomy noted. No evidence of right renal mass or obstruction. KUB x-ray showed nonacute abdomen. EKG showed normal sinus rhythm. Laboratory data showed WBC 7.9 hemoglobin 13.7 and platelets was 303 Sodium 136 potassium 4.0 chloride 100 bicarb is 30 BUN 49 creatinine 0.66 lactic acid 0.5 AST 81 ALT 367 alk phos 392 and troponin 0 0.012 lipase 129 Urinalysis is negative for infection. Hepatitis panel negative coronavirus PCR not detected. 03/21/2021 Patient is currently resting in the bed. Awake alert and oriented 3. Right upper quadrant abdominal pain is much improved. Patient is tolerating liquid diet. Patient has been afebrile. No nausea vomiting or diarrhea. No chest pain or s hortness of breath. Laboratory data showed AST trending down to 175 ALT 328 and alk phos 247. Bilir ubin level is 0.5. Continue to monitor LFTs. General surgery is following. Patient may need MRCP if the levels trending up. Current medications reviewed. Objective - Vital Signs Vital signs: Vital Signs Temp 97.7 F 03/21/21 20:12 Pulse 64 03/21/21 20:12 Resp 16 03/21/21 20:12 BP 124/81 03/21/21 20:12 Pulse Ox 98 03/21/21 20:12 Intake & Output 03/21/21 03/21/21 03/22/21 06:59 18:59 06:59 Intake Total 2325 Balance 2325 Intake: Intake, IV Titration 825 Amount Sodium Chloride 0.9% 1, 825 000 ml @ 75 mls/hr IV . [id number] PARAM Rx#:[id number] Oral 1500 Other: # Voids 2 3 - Exam PHYSICAL EXAMINATION: Patient is lying in the bed comfortably, no acute distress, awake alert and oriented.. HEENT: Normocephalic. Neck is supple. Pupils reactive. Nostrils clear. Oral cavity is moist. Neck reveals no JVD, carotid bruits, or thyromegaly. CHEST EXAMINATION: Trachea is central. Symmetrical expansion. Lung red clear to auscultation and percussion. CARDIAC: Normal S1, S2 with no gallops. No murmurs ABDOMEN: Soft. Bowel sounds normal. No organomegaly. No abdominal bruits. Extremities: reveal no edema. No clubbing or cyanosis Neurologically awake, alert, oriented x3 with well-coordinated movements. No focal deficits noted Skin: No rash or skin lesions. Psychiatric: Coperative. Nonsuicidal Musculoskeletal: No joint swelling or deformity. Normal range of motion. - Labs CBC & Chem 7: 03/22/21 06:27 03/22/21 06:27 Labs: Abnormal Lab Results - Last 24 Hours (Table) 03/21/21 Range/Units 05:29 Calcium 8.3 L (8.4-10.2) mg/dL AST 175 H (14-36) U/L ALT 328 H (4-34) U/L Alkaline Phosphatase 247 H (38-126) U/L Total Protein 5.8 L (6.3-8.2) g/dL Albumin 3.1 L (3.5-5.0) g/dL Assessment and Plan Assessment: Right upper quadrant abdominal pain with elevated liver enzymes. Possible choledocholithiasis. Patient has history of cholecystectomy. Elevated AST ALT and alk phos. Bilirubin level 0.9 on admission. History of cholecystectomy in 2019 Asthma not in exacerbation GERD Hypothyroidism DVT prophylaxis Heparin subcu Plan: Patient will be continued on IV hydration and pain management. Patient does have possible choledocholithiasis. Patient instructed been down. Bilirubin level is not elevated. General surgery is following..Gastroenterology service is not available at this time. No hyperbilirubinemia. Patient may need MRCP if LFTs trends up. Follow clinical status closely.Patient states that pain is almost resolved.
--- NOTE | 2021-03-22 15:03 | P.PN ---
Subjective Progress Note Date: 03/22/21 CHIEF COMPLAINT: Right upper quadrant abdominal pain HISTORY OF PRESENT ILLNESS: [facility] in regards to possible choledocholithiasis. Patient status post cholecystectomy about 15 months ago. She is tolerating clear liquid diets. She denies any nausea or vomiting. She reports decrease in her pain. Her LFTs are trending downwards. WBC is 5. She is afebrile. PHYSICAL EXAM: VITAL SIGNS: Reviewed. GENERAL: Well-developed in no acute distress. HEENT: No sclera icterus. Extraocular movements grossly intact. Moist buccal mucosa. Head is atraumatic, normocephalic. ABDOMEN: Soft. Nondistended. Mild tenderness with palpation of the right upper quadrant and epigastric area NEUROLOGIC: Alert and oriented. Cranial nerves II through XII grossly intact. ASSESSMENT: 1. Choledocholithiasis and has likelly passed gallstone 2. LFTs trending downwards PLAN: -Patient can be discharge from surgical standpoint -Patient to follow-up with Dr. Mittal outpatient -Advance diet to full liquids and then as tolerated -Continue supportive care Physician Crusher Screen Repairer note has been reviewed by physician. Signing provider agrees with the documented findings, assessment, and plan of care. Objective - Vital Signs Vital signs: Vital Signs Temp 98.3 F 03/22/21 08:17 Pulse 66 03/22/21 08:17 Resp 16 03/22/21 08:17 BP 122/76 03/22/21 08:17 Pulse Ox 98 03/22/21 08:17 Intake & Output 03/21/21 03/22/21 03/22/21 18:59 06:59 18:59 Intake Total 2325 Balance 2325 Intake: Intake, IV Titration 825 Amount Sodium Chloride 0.9% 1, 825 000 ml @ 75 mls/hr IV . [id number] PARAM Rx#:[id number] Oral 1500 Other: # Voids 3 2 - Labs CBC & Chem 7: 03/22/21 06:27 03/22/21 06:27 Labs: Abnormal Lab Results - Last 24 Hours (Table) 03/22/21 Range/Units 06:27 Carbon Dioxide 31 H (22-30) mmol/L BUN 4 L (7-17) mg/dL AST 70 H (14-36) U/L ALT 246 H (4-34) U/L Alkaline Phosphatase 235 H (38-126) U/L Albumin 3.4 L (3.5-5.0) g/dL
[2021-03-22 15:13] VITALS: BP 107/72; PULSE 76; TEMP 98.1
--- NOTE | 2021-03-23 19:46 | P.DS ---
Providers Date of admission: 03/20/21 02:28 Expected date of discharge: 03/22/21 Attending physician: Jackie Faust Consults: 03/20/21 10:24 Consult Physician Routine Consulting Provider: Alec Mittal Consult Reason/Comments: abdominal pain Do you want consulting provider notified?: Yes Primary care physician: Manoj Ballesteros [facility] Course: Final diagnosis Right upper quadrant abdominal pain with elevated liver enzymes. Possible choledocholithiasis. Patient has history of cholecystectomy. History of cholecystectomy in 2019 Asthma not in exacerbation GERD Hypothyroidism DVT prophylaxis Full code Discharge disposition Patient is being discharged in a stable condition with guarded prognosis to home. Patient will follow-up with Dr. Ballesteros in the outpatient setting upon discharge. Patient will also need GI and gen surgery follow up. Patient to continue on full liquid diet and slowly advance as tolerated. Total time taken is greater than 35 minutes. Hospital course Right upper quadrant abdominal pain Patient is a 50-year-old female with a known history of asthma, GERD, hypothyroidism and previous history of cholecystectomy presents to ER with comp laints of abdominal pain. Abdominal pain is mainly in the right upper quadrant and also in the epigastric on the right side.. Patient states that she had soft stools for the past 2 to 3 days and yesterday developed severe abdominal pain which made her to come to ER. Pain felt like similar to previous pain when she had cholecystectomy. She did have nausea and episodes of vomiting. Patient states that she had fevers initially but they have been resolved. Patient had cholecystectomy in 2019. Denied any recent illnesses. No history of prior hepatitis. No recent travel or sick contacts. On admission blood pressure 132/78 pulse is 80 and respirations 22 pulse ox 100% on room air Ultrasound of the abdomen showed no focal liver defect. No dilated ducts. Cholecystectomy noted. No evidence of right renal mass or obstruction. KUB x-ray showed nonacute abdomen. EKG showed normal sinus rhythm. Laboratory data showed WBC 7.9 hemoglobin 13.7 and platelets was 303 Sodium 136 potassium 4.0 chloride 100 bicarb is 30 BUN 49 creatinine 0.66 lactic acid 0.5 AST 81 ALT 367 alk phos 392 and troponin 0 0.012 lipase 129 Urinalysis is negative for infection. Hepatitis panel negative coronavirus PCR not detected. 03/21/2021 Patient is currently resting in the bed. Awake alert and oriented 3. Right upper quadrant abdominal pain is much improved. Patient is tolerating liquid diet. Patient has been afebrile. No nausea vomiting or diarrhea. No chest pain or shortness of breath. Laboratory data showed AST trending down to 175 ALT 328 and alk phos 247. Bilirubin level is 0.5. Continue to monitor LFTs. General surgery is following. Patient may need MRCP if the levels trending up. 03/22/2021 Patient seen and evaluated this morning and able to tolerate advanced diet. Patient states she feels better and would like to go home. Patient to continue full liquid diet and advance slowly to low fiber over the next few days. Patient will need follow up outpatient with GI and general surgery. Currently no reports of chest pain, worsening shortness of breath, or palpitations. Patient is afebrile. Patient will be discharged home today. Guarded prognosis. Gen: This is 50-year-old female who is awake, alert and oriented 3, well- developed, well-nourished HEENT: Head is atraumatic, normocephalic. Pupils equal, round. Sclerae is anicteric. NECK: Supple. No JVD. No lymphadenopathy. No thyromegaly. LUNGS: Breath sounds are diminished at the bases with no wheezing or rhonchi noted. No intercostal retractions. HEART: S1, S2 are muffled ABDOMEN: Soft. non-distended, Bowel sounds are present. No masses. No tenderness. EXTREMITIES: no edema No calf tenderness. NEUROLOGICAL: Alert and oriented 3, no focal deficit SKIN: no rashes or lesions noted Please refer to medication reconciliation sheet for a list of medications. Patient Condition at Discharge: Good Plan - Discharge Summary Discharge Rx Participant: Yes New Discharge Prescriptions: Continue Montelukast Sodium [Singulair] 10 mg PO HS Levothyroxine Sodium [Synthroid] 75 mcg PO DAILY Fluticasone Nasal [place] [Flonase Nasal [place]] 1 spr EA NOSTRIL DAILY Cetirizine HCl [Zyrtec] 10 mg PO DAILY Dextroamphetamine/Amphetamine [Adderall Xr] 30 mg PO DAILY PRN PRN Reason: ADHD Omeprazole Magnesium [PriLOSEC OTC] 20 mg PO DAILY Albuterol Sulfate [Proair Hfa] 1 - 2 puff INHALATION RT-Q6H PRN PRN Reason: Shortness Of Breath L.acidoph,Paracasei, B.lactis [Probiotic] 1 cap PO DAILY Ibuprofen [Motrin Ib] 800 mg PO Q8H PRN PRN Reason: Pain Discharge Medication List Cetirizine HCl [Zyrtec] 10 mg PO DAILY 11/25/19 [History] Dextroamphetamine/Amphetamine [Adderall Xr] 30 mg PO DAILY PRN 11/25/19 [History] Fluticasone Nasal [place] [Flonase Nasal [place]] 1 spr EA NOSTRIL DAILY 11/25/19 [History] Levothyroxine Sodium [Synthroid] 75 mcg PO DAILY 11/25/19 [History] Montelukast Sodium [Singulair] 10 mg PO HS 11/25/19 [History] Albuterol Sulfate [Proair Hfa] 1 - 2 puff INHALATION RT-Q6H PRN 03/20/21 [History] Ibuprofen [Motrin Ib] 800 mg PO Q8H PRN 03/20/21 [History] L.acidoph,Paracasei, B.lactis [Probiotic] 1 cap PO DAILY 03/20/21 [History] Omeprazole Magnesium [PriLOSEC OTC] 20 mg PO DAILY 03/20/21 [History] Follow up Appointment(s)/Referral(s): Manoj Ballesteros DO [Primary Care Provider] - 1-2 days Alec Mittal MD [STAFF PHYSICIAN] - 1 Week Aditi Barriga MD [STAFF PHYSICIAN] - 2 Weeks Ambulatory/Diagnostic Orders: Comprehensive Metabolic Panel [LAB.AMB] Time Frame: 3 Days, Location: None Selected Activity/Diet/Wound Care/Special Instructions: Activity Limited until follow-up Follow-up with surgery in one week Follow-up GI outpatient Continue full liquid diet and slowly advance as tolerated over the next 2 days to low fiber Follow-up with primary care provider on discharge Follow-up with repeat labs to monitor liver functions Call physician with any questions comments concerns worsening returning symptoms, fever, not tolerating diet or fluids, pain that is not subsided with over the counter or home medications. Discharge Disposition: HOME SELF-CARE
== END 2021-03-22 18:05 | disposition home or self-care (01) ==
LOC: EC 18:37 → 6NMEDSUR 03-20 02:28 → 6PED 03-20 02:57
PROVIDERS: ADMIT Hospitalist; ATTEND Hospitalist
DX: R10.11 Right upper quadrant pain (principal); R74.8 Abnormal levels of other serum enzymes; R07.81 Pleurodynia; R19.7 Diarrhea, unspecified; R10.13 Epigastric pain; R11.2 Nausea with vomiting, unspecified; R50.9 Fever, unspecified; R79.89 Other specified abnormal findings of blood chemistry; J45.909 Unspecified asthma, uncomplicated; K21.9 Gastro-esophageal reflux disease without esophagitis; E03.9 Hypothyroidism, unspecified; N83.209 Unspecified ovarian cyst, unspecified side; I38 Endocarditis, valve unspecified; E66.9 Obesity, unspecified; Z68.34 Body mass index [BMI] 34.0-34.9, adult; Z20.822 Contact with and (suspected) exposure to COVID-19; Z90.49 Acquired absence of other specified parts of digestive tract; Z79.899 Other long term (current) drug therapy; Z79.890 Hormone replacement therapy; Z71.9 Counseling, unspecified; Z82.49 Family history of ischemic heart disease and other diseases of the circulatory system; Z83.49 Family history of other endocrine, nutritional and metabolic diseases
CPT/HCPCS: 96361 ×4; 96372 ×3; 96376; 96374; 96375; 99285; 36415; 93005; 80053 ×4; 80074; 83605; 83690; 84484; 85025 ×3; 85610; 85730; 81001; 87635; 74018; 76705; G0378 ×3; J2270; J2405; J1644 ×3

== ENCOUNTER 2021-03-26 11:53 | Observation (INO) | payer OTHER ==
[2021-03-26] MEDS ORDERED: INDOMETHACIN 50MG SUPPOSITORY RECTAL ONE (12:00)
[2021-03-26] MEDS ORDERED: LEVOFLOXACIN 500MG-D5W PMX 500 MG in DEXTROSE/WATER 1 100ML.BAG IVPB ONE (12:00)
[2021-03-26] MEDS: LACTATED RINGERS 1,000 ML IV SCH (12:35)
[2021-03-26 12:58] LABS: Basophils % (A) 0 %; Eosinophils # (A) 0.1 k/uL (0-0.7); Eosinophils % (A) 1 %; HCT 40.4 % (34.0-46.0); HGB 13.7 gm/dL (11.4-16.0); Lymphocytes # (A) 1.8 k/uL (1.0-4.8); Lymphocytes % (A) 29 %; MCH 31.7 pg (25.0-35.0); MCHC 33.8 g/dL (31.0-37.0); MCV 93.7 fL (80.0-100.0); Mean Platelet Volume 7.8; Monocytes # (A) 0.5 k/uL (0-1.0); Monocytes % (A) 9 %; Neutrophils # (A) 3.7 k/uL (1.3-7.7); Neutrophils % (A) 58 %; Platelet Count 388 k/uL (150-450); RBC 4.31 m/uL (3.80-5.40); RDW 13.3 % (11.5-15.5); WBC 6.4 k/uL (3.8-10.6)
[2021-03-26 13:13] LABS: Prothrombin Time 10.6 sec (9.0-12.0)
[2021-03-26] MEDS ORDERED: PROPOFOL 10 MG/ML 20 ML VIAL IV ONE (13:19)
[2021-03-26] MEDS ORDERED: LIDOCAINE 1% INJ 10MG/ML (20 ML MDV) ONE (13:19)
[2021-03-26 13:33] LABS: ALT 95 U/L (4-34); AST 26 U/L (14-36); African American GFR (CKD) >90 (>60 ml/min/1.73 sqM); Albumin 4.2 g/dL (3.5-5.0); Alkaline Phosphatase 193 U/L (38-126); Anion Gap 7 mmol/L; Blood Urea Nitrogen 11 mg/dL (7-17); Calcium 9.7 mg/dL (8.4-10.2); Carbon Dioxide 27 mmol/L (22-30); Chloride 105 mmol/L (98-107); Glucose 92 mg/dL (74-99); Non-African American GFR(CKD) >90 (>60 ml/min/1.73 sqM); Potassium 4.6 mmol/L (3.5-5.1); Sodium 139 mmol/L (137-145); Total Bilirubin 0.7 mg/dL (0.2-1.3); Total Protein 7.2 g/dL (6.3-8.2)
--- NOTE | 2021-03-26 14:01 | P.PCN ---
Date of Procedure: 03/26/21 Procedure(s) Performed: Brief history: Patient is a 50 year-old pleasant lady scheduled for an ERCP as part of evaluation of abdominal pain and elevated serum transaminases for the last 1 week duration. She was admitted to [facility] a week ago with severe epigastric and right upper quadrant abdominal pain. She was noted to have elevated LFTs with AST 330 and 18. He 2 weeks. She had an ultrasound of the right upper quadrant done that showed dilated CBD and one centimeter. She status post coronary surgery for gallstones in October 2019. He states her pain is similar to her gallbladder attacks prior to the surgery. During the course of hospitalization of 3 days' her LFTs gradually improving and she was discharged home and she was seen in office yesterday and continues to have persistent epigastric and right upper quadrant abdominal pain.. Because of clinical suspicion for CBD stone she is scheduled for an ERCP today. Procedure performed: ERCP with biliary sphincterotomy and balloon sweep Preoperative diagnoses: Right upper quadrant abdominal pain/elevated LFTs/dilated CBD/rule out CBD stones IV sedation per anesthesia: Procedure: After informed consent was obtained from the patient and after the risks benefits and complications including bleeding perforation and pancreatitis ex plained in detail the patient was brought into the endoscopy unit. She understands was benefits and complications of the procedure. The patient was placed in prone position and IV conscious sedation was administered by anesthesia under continuous monitoring. The Olympus side-viewing duodenoscope was then inserted into the mouth and esophagus intubated without any difficulty. The scope was gradually advanced into the stomach and duodenum. The major papilla was identified without any difficulty. Initial cannulation resulted in opacification of the pancreatic duct that appeared normal. Subsequent cannulation resulted in opacification of the common bile duct and upon injection of the dye the common bile duct appeared dilated measuring 1 cm in size. There was no intrahepatic biliary ductal dilation seen. There was a faint filling defect noted in the distal common bile duct measuring about 3-4 mm in size. However there was no movement of this filling defect noted. It was unclear w hether this represented a stone or not. But because of the clinical presentation I proceeded with biliary sphincterotomy after the catheter was extended over the guidewire. The sphincterotomy was performed in 11 o'clock position and was extended to 1 cm. Following this an 11 mm balloon was passed into the proximal CBD over the guidewire and was gently inflated and withdrawn. I did not see any stones exiting the ampulla. I repeated this maneuver 2 more times. An occlusion cholangiogram was performed. No filling defects were noted at this time. The procedure was terminated. Patient tolerated the procedure well. Impression: Dilated common bile duct with a faint filling defect in the distal CBD measuring 3 mm in size, status post biliary sphincterotomy and balloon sweep. No stones w ere seen exiting the ampulla Normal-appearing pancreatic duct Recommendations: The findings of this examination were discussed with the patient as well as a family. She will be observed closely and if she does well with no abdominal. She'll be discharged to with a clear liquid diet for dinner. Patient was advised to call me if she has any abdominal pain. She'll be seen in office in 2 weeks.
--- NOTE | 2021-03-26 14:02 | FL ---
Fluoroscopy History: ERCP ERCP with Dr. Barriga. 1 min 54 sec fluoro time. 2 images sent
[2021-03-26] MEDS ORDERED: fentaNYL (PF) 50 MCG/ML 5 ML AMP IV ONE ×2 (14:12→14:24)
[2021-03-26] MEDS ORDERED: IV FLUID CONTINUATION 1,000 ML IV ONE (14:13)
[2021-03-26] MEDS ORDERED: ACETAMINOPHEN IV (For NPO) 1,000 MG in EMPTY BAG 1 BAG IVPB STA (14:42)
[2021-03-26] MEDS ORDERED: KETOROLAC 30 MG/ML 1 ML VIAL ONE (14:47)
[2021-03-26] MEDS: KETOROLAC 30 MG/ML 1 ML VIAL IVP PRN ×2 (14:49→20:22)
--- NOTE | 2021-03-26 15:10 | P.GSCN ---
History of Present Illness Consult date: 03/26/21 Reason for Consult: Abdominal pain History of present illness: 50-year-old female underwent laparoscopic cholecystectomy by Dr. Mittal in Nov. Patient was admitted a week ago for abdominal pain with elevated liver enzymes. Her pain resolved and her enzymes improve she was discharged. Patient had an ultrasound showing a mild biliary dilation. Patient was seen by GI in the outpatient setting. Here today for ERCP. Post-ERCP patient having right upper quadrant discomfort. She says this feels like the pains that she has been having. During the ERCP which went uneventfully there may have been a small filling defect. Sphincterotomy took place with sweeping of the duct. Patient being admitted because of the pain she is having in the recovery room. Hemodynamically stable. Review of Systems The patient denies any acute changes in vision or hearing, no dysphagia or odynophagia, no chest pain or shortness of breath, no dysuria or hematuria, no headache, no runny nose, no rectal bleeding or melena, no unexplained weight loss Past Medical History Past Medical History: Asthma, GERD/Reflux, Thyroid Disorder Additional Past Medical History / Comment(s): Patient states she a leaky heart valve and ovarian cyst. History of Any Multi-Drug Resistant Organisms: None Reported Past Surgical History: Cholecystectomy Past Anesthesia/Blood Transfusion Reactions: No Reported Reaction Additional Past Anesthesia/Blood Transfusion Reaction / Comm: Pt. has never received blood products Past Psychological History: No Psychological Hx Reported Smoking Status: Never smoker Past Alcohol Use History: Occasional Past Drug Use History: None Reported - Past Family History Father Family Medical History: AFIB, AICD/Pacemaker Mother Family Medical History: Thyroid Disorder Medications and Allergies Home Medications Medication Instructions Recorded Confirmed Type Cetirizine HCl [Zyrtec] 10 mg PO DAILY 11/25/19 03/26/21 History Dextroamphetamine/Amphetamine 30 mg PO DAILY PRN 11/25/19 03/26/21 History [Adderall Xr] Fluticasone Nasal [place] [Flonase 1 spr EA NOSTRIL DAILY 11/25/19 03/26/21 [place] Nasal [place]] Levothyroxine Sodium [Synthroid] 75 mcg PO DAILY 11/25/19 03/26/21 History Montelukast Sodium [Singulair] 10 mg PO HS 11/25/19 03/26/21 History Albuterol Sulfate [Proair Hfa] 1 - 2 puff INHALATION RT-Q6H PRN 03/20/21 03/26/21 History Ibuprofen [Motrin Ib] 800 mg PO Q8H PRN 03/20/21 03/26/21 History L.acidoph,Paracasei, B.lactis 1 cap PO DAILY 03/20/21 03/26/21 History [Probiotic] Omeprazole Magnesium [PriLOSEC OTC] 20 mg PO DAILY 03/20/21 03/26/21 History Allergies Allergy/AdvReac Type Severity Reaction Status Date / Time No Known Allergies Allergy Verified 03/26/21 12:22 Surgical - Exam Vital Signs Temp Pulse Resp BP Pulse Ox 97.8 F 69 16 119/65 100 03/26/21 12:30 03/26/21 12:30 03/26/21 12:30 03/26/21 12:30 03/26/21 12:30 Physical exam: General: Well-developed, well-nourished HEENT: Normocephalic, sclerae nonicteric Abdomen: Mild right upper quadrant tenderness, nondistended Extremities: No edema Neuro: Alert and oriented Results - Labs 03/26/21 12:00 03/26/21 12:00 Abnormal Lab Results - Last 24 Hours (Table) 03/26/21 Range/Units 12:00 ALT 95 H (4-34) U/L Alkaline Phosphatase 193 H (38-126) U/L Diabetes panel 03/26/21 Range/Units 12:00 Sodium 139 (137-145) mmol/L Potassium 4.6 (3.5-5.1) mmol/L Chloride 105 (98-107) mmol/L Carbon Dioxide 27 (22-30) mmol/L BUN 11 (7-17) mg/dL Creatinine 0.71 (0.52-1.04) mg/dL Glucose 92 (74-99) mg/dL Calcium 9.7 (8.4-10.2) mg/dL AST 26 (14-36) U/L ALT 95 H (4-34) U/L Alkaline Phosphatase 193 H (38-126) U/L Total Protein 7.2 (6.3-8.2) g/dL Albumin 4.2 (3.5-5.0) g/dL Calcium panel 03/26/21 Range/Units 12:00 Calcium 9.7 (8.4-10.2) mg/dL Albumin 4.2 (3.5-5.0) g/dL Pituitary panel 03/26/21 Range/Units 12:00 Sodium 139 (137-145) mmol/L Potassium 4.6 (3.5-5.1) mmol/L Chloride 105 (98-107) mmol/L Carbon Dioxide 27 (22-30) mmol/L BUN 11 (7-17) mg/dL Creatinine 0.71 (0.52-1.04) mg/dL Glucose 92 (74-99) mg/dL Calcium 9.7 (8.4-10.2) mg/dL Adrenal panel 03/26/21 Range/Units 12:00 Sodium 139 (137-145) mmol/L Potassium 4.6 (3.5-5.1) mmol/L Chloride 105 (98-107) mmol/L Carbon Dioxide 27 (22-30) mmol/L BUN 11 (7-17) mg/dL Creatinine 0.71 (0.52-1.04) mg/dL Glucose 92 (74-99) mg/dL Calcium 9.7 (8.4-10.2) mg/dL Total Bilirubin 0.7 (0.2-1.3) mg/dL AST 26 (14-36) U/L ALT 95 H (4-34) U/L Alkaline Phosphatase 193 H (38-126) U/L Total Protein 7.2 (6.3-8.2) g/dL Albumin 4.2 (3.5-5.0) g/dL Assessment and Plan (1) Choledocholithiasis Narrative/Plan: 50-year-old female with pain post-ERCP. Recheck lab work tomorrow. Diet per GI. Will follow. Current Visit: No Status: Acute Code(s): K80.50 - CALCULUS OF BILE DUCT W/O CHOLANGITIS OR CHOLECYST W/O OBST SNOMED Code(s): 764349539
--- NOTE | 2021-03-26 16:11 | CONS ---
CONSULTATION DATE OF SERVICE: March 26, 2021. REQUESTING PHYSICIAN: Dr. Mendez and Dr. Mittal. REASON FOR CONSULTATION: Post ERCP abdominal pain. HISTORY OF PRESENT ILLNESS: The patient is a 50-year-old pleasant white female who was admitted to the hospital last week with severe epigastric and right upper quadrant abdominal pain of one day duration. At the time of admission to the hospital on March 20, she was noted to have elevation of serum transaminases with ALT and AST in the range of respectively. T-bilirubin and alkaline phosphatase was normal. Lipase was normal. She subsequently had ultrasound of the abdomen done that showed evidence of dilated CBD. Because of the clinical suspicion for CBD stone, she was watched closely. Her serum transaminases improved for the next 2 days and she was discharged home with outpatient followup in our office. She was seen on consultation 2 days ago. The patient continued to have persistent epigastric and right upper quadrant abdominal pain and she was scheduled for an outpatient ERCP today. ERCP was performed and she was noted to have a normal pancreatic duct. Common bile duct was slightly dilated with faint filling defect in the distal CBD. A biliary sphincterotomy was performed and balloon sweep was done but no stones were seen exiting the ampulla. Post ERCP, the patient started complaining of severe epigastric pain needing IV Tylenol as well as 50 mg of fentanyl. Currently, she continues to have mild- to-moderate abdominal pain with some nausea but no emesis. Tolerating clear liquids. No fever, chills, or night sweats. Labs done this morning prior to ERCP showed a mild elevation of serum transaminases with ALT of 143 and AST of 90. T-bilirubin and alkaline phosphatase was within normal limits. CBC was within normal limits. PAST MEDICAL HISTORY: Significant for gastroesophageal reflux disease, hypothyroidism, nasal allergies and asthma. MEDICATIONS: Medications at home include: Omeprazole, Synthroid, Adderall, Zyrtec, ProAir, Flonase and Singulair. ALLERGIES: None. SOCIAL HISTORY: No smoking. No alcohol use. FAMILY HISTORY: Unremarkable. PAST SURGICAL HISTORY: Gallbladder surgery in September of 2019 for gallstones. PHYSICAL EXAMINATION: She appears comfortable. No apparent distress. Vital signs stable. Blood pressure was 133/86, pulse rate 92 per minute and afebrile. HEENT examination unremarkable. Conjunctivae pink. Sclerae anicteric. Oral cavity no lesions. NECK: No JVD or lymph node enlargement. CHEST was clear to auscultation. HEART: Regular rate and rhythm. ABDOMEN: Soft, bowel sounds are positive. Tenderness in the epigastric area. It was slightly distended. EXTREMITIES: No pedal edema. NEURO: She is alert and oriented x3. No focal deficits. LABS: From today prior to ERCP, CBC is normal. CMP showed AST of 90 and ALT is 143. T- bilirubin and alkaline phosphatase are normal. IMPRESSION: 1. This is a lady with severe epigastric right upper quadrant abdominal pain for the last one week duration needing hospitalization last weekend and noted to have elevated serum transaminases in the range of 500 and 800 respectively. Ultrasound showed CBD dilation. 2. History of gallbladder surgery for symptomatic gallstones in September of 2019. 3. The patient underwent ERCP for clinical suspicion for CBD stone. An ERCP revealed dilated common bile duct with a faint filling defect in the distal CBD, status post biliary sphincterotomy and balloon sweep done. No stone was seen exiting the ampulla. Post ERCP, patient complaining of abdominal pain and possibility of acute pancreatitis needs to be considered. 4. History of hypothyroidism. 5. History of asthma/allergies. RECOMMENDATIONS: 1. Aggressive IV hydration. 2. Clear liquid diet. 3. Pain medications with IV Toradol as needed. 4. Admit the patient to Dr. Faust's Service. The case was discussed with Dr. Faust. 5. Repeat labs in the morning including amylase and lipase. 6. If she is doing well, she can be discharged home tomorrow with outpatient followup in 2 weeks. Thank you for the consultation. MMODL / IJN: [id number] /
[2021-03-26] MEDS ORDERED: MORPHINE SULFATE 4 MG/ML SYRINGE IVP PRN (17:01)
[2021-03-26] MEDS ORDERED: ALBUTEROL NEBULIZED 2.5 MG/3 ML INHALATION PRN (17:01)
[2021-03-26 17:33] LABS: Basophils # (A) 0.1 k/uL (0-0.2); Basophils % (A) 1 %; Eosinophils # (A) 0.1 k/uL (0-0.7); Eosinophils % (A) 1 %; HCT 39.5 % (34.0-46.0); HGB 12.7 gm/dL (11.4-16.0); Lymphocytes # (A) 1.3 k/uL (1.0-4.8); Lymphocytes % (A) 17 %; MCH 30.8 pg (25.0-35.0); MCHC 32.3 g/dL (31.0-37.0); MCV 95.2 fL (80.0-100.0); Mean Platelet Volume 7.4; Monocytes # (A) 0.5 k/uL (0-1.0); Monocytes % (A) 6 %; Neutrophils # (A) 5.8 k/uL (1.3-7.7); Neutrophils % (A) 74 %; Platelet Count 342 k/uL (150-450); RBC 4.15 m/uL (3.80-5.40); RDW 13.2 % (11.5-15.5); WBC 7.9 k/uL (3.8-10.6)
[2021-03-26 17:55] LABS: Chloride 101 mmol/L (98-107)
[2021-03-26 17:59] LABS: ALT 87 U/L (4-34); AST 34 U/L (14-36); African American GFR (CKD) >90 (>60 ml/min/1.73 sqM); Albumin/Globulin Ratio 1.4; Alkaline Phosphatase 182 U/L (38-126); Anion Gap 8 mmol/L; Bilirubin,Unconjugated 0.4 mg/dL (0.0-1.1); Blood Urea Nitrogen 10 mg/dL (7-17); C Reactive Protein <0.5 mg/dL (<1.0); Calcium 9.3 mg/dL (8.4-10.2); Carbon Dioxide 28 mmol/L (22-30); Globulin 2.9 g/dL; Glucose 107 mg/dL (74-99); Lipase 134 U/L (23-300); Non-African American GFR(CKD) >90 (>60 ml/min/1.73 sqM); Potassium 4.2 mmol/L (3.5-5.1); Sodium 137 mmol/L (137-145); Total Bilirubin 0.5 mg/dL (0.2-1.3); Total Protein 6.9 g/dL (6.3-8.2)
--- NOTE | 2021-03-26 18:17 | P.HPIM ---
History of Present Illness H&P Date: 03/26/21 Chief Complaint: Abdominal pain 50-year-old female patient with history of hypothyroidism, asthma, ADHD, underwent laparoscopic cholecystectomy in November 2019; patient was admitted a week ago for abdominal pain with elevated liver enzymes; liver enzymes normalized and pain resolved with conservative treatment; hepatobiliary ultrasound revealed mild biliary dilatation and patient was discharged home in a stable condition to follow-up with GI for possible ERCP Patient presented to the hospital this afternoon and underwent ERCP for persistent right upper quadrant pain; ERCP revealed possible small filling defect; sphincterotomy was done with sleeping of gout; post ERCP patient continued to have severe abdominal pain and is admitted to the hospital for possible acute pancreatitis Labs completed on admission reveal the release of 7.9, hemoglobin 12.7 and platelet count of 342, sodium 137, potassium 4.2, BUN/creatinine of 10/0.61 with blood glucose of 107; AST/ALT at 87/182 which is a slight downward trend from 95/193 earlier Review of Systems REVIEW OF SYSTEMS: CONSTITUTIONAL: No fever, no malaise, no fatigue. HEENT: No recent visual problems or hearing problems. Denied any sore throat. CARDIOVASCULAR: No chest pain, orthopnea, PND, no palpitations, no syncope. PULMONARY: No shortness of breath, no cough, no hemoptysis. GASTROINTESTINAL: abdominal pain. NEUROLOGICAL: No headaches, no weakness, no numbness. HEMATOLOGICAL: Denies any bleeding or petechiae. GENITOURINARY: Denies any burning micturition, frequency, or urgency. MUSCULOSKELETAL/RHEUMATOLOGICAL: Denies any joint pain, swelling, or any muscle pain. ENDOCRINE: Denies any polyuria or polydipsia. The rest of the 14-point review of systems is negative. Past Medical History Past Medical History: Asthma, GERD/Reflux, Thyroid Disorder Additional Past Medical History / Comment(s): Patient states she a leaky heart valve and ovarian cyst. History of Any Multi-Drug Resistant Organisms: None Reported Past Surgical History: Cholecystectomy Past Anesthesia/Blood Transfusion Reactions: No Reported Reaction Additional Past Anesthesia/Blood Transfusion Reaction / Comment(s): Pt. has never received blood products Past Psychological History: No Psychological Hx Reported Smoking Status: Never smoker Past Alcohol Use History: Occasional Past Drug Use History: None Reported - Past Family History Father Family Medical History: AFIB, AICD/Pacemaker Mother Family Medical History: Thyroid Disorder Medications and Allergies Home Medications Medication Instructions Recorded Confirmed Type Cetirizine HCl [Zyrtec] 10 mg PO DAILY 11/25/19 03/26/21 History Dextroamphetamine/Amphetamine 30 mg PO DAILY PRN 11/25/19 03/26/21 History [Adderall Xr] Fluticasone Nasal [place] [Flonase 1 spr EA NOSTRIL DAILY 11/25/19 03/26/21 History Nasal [place]] Levothyroxine Sodium [Synthroid] 75 mcg PO DAILY 11/25/19 03/26/21 History Montelukast Sodium [Singulair] 10 mg PO HS 11/25/19 03/26/21 History Albuterol Sulfate [Proair Hfa] 1 - 2 puff INHALATION RT-Q6H PRN 03/20/21 03/26/21 History Ibuprofen [Motrin Ib] 800 mg PO Q8H PRN 03/20/21 03/26/21 History L.acidoph,Paracasei, B.lactis 1 cap PO DAILY 03/20/21 03/26/21 History [Probiotic] Omeprazole Magnesium [PriLOSEC OTC] 20 mg PO DAILY 03/20/21 03/26/21 History Allergies Allergy/AdvReac Type Severity Reaction Status Date / Time No Known Allergies Allergy Verified 03/26/21 12:22 Physical Exam Vitals: Vital Signs Temp Pulse Resp BP Pulse Ox 03/26/21 15:31 71 16 102/61 100 03/26/21 15:04 63 16 119/80 100 03/26/21 14:14 81 16 105/69 100 03/26/21 14:01 84 16 108/74 100 03/26/21 12:30 97.8 F 69 16 119/65 100 Intake and Output 03/26/21 03/26/21 03/26/21 06:59 14:59 22:59 Intake Total 1100 Balance 1100 Intake: IV 1100 Other: Weight 80.8 kg - Constitutional General appearance: Present: average body habitus, cooperative, no acute distress - EENT Eyes: Present: anicteric sclerae, EOMI, PERRLA, normal appearance ENT: Present: hearing grossly normal, normal oropharynx Ears: bilateral: normal - Neck Neck: Present: normal ROM. Absent: lymphadenopathy, rigidity, thyromegaly Carotids: negative: bruit present Thyroid: bilateral: normal size, negative: enlarged, nodule - Respiratory Respiratory: bilateral: CTA, negative: rales, rhonchi, wheezing - Cardiovascular Rhythm: regular Heart sounds: normal: S1, S2 Abnormal Heart Sounds: Absent: systolic murmur, diastolic murmur - Gastrointestinal General gastrointestinal: Present: Mild right upper quadrant tenderness, nondistended - Genitourinary Genitourinary Comment(s): deferred - Integumentary Integumentary: Present: normal turgor. Absent: jaundiced, rash, ulcer - Neurologic Neurologic: Present: CNII-XII intact. Absent: focal deficits - Musculoskeletal Musculoskeletal: Present: gait normal, strength equal bilaterally - Psychiatric Psychiatric: Present: A&O x's 3, appropriate affect, intact judgment & insight Results CBC & Chem 7: 03/26/21 17:15 03/26/21 17:15 Labs: Abnormal Lab Results - Last 24 Hours (Table) 03/26/21 Range/Units 12:00 ALT 95 H (4-34) U/L Alkaline Phosphatase 193 H (38-126) U/L Assessment and Plan Assessment: 1. Abdominal pain; post ERCP - We will start patient on IV fluids at normal saline at rate of 100 mL an hour; keep patient nothing by mouth; monitor strict ROSIE's; monitored in function and electrolytes - Monitor and trend lipase; repeat blood work tomorrow - Plan was discussed with GI and they're agreeable; Protonix 40 mg IV daily - Gen. surgery on board 2. Hypothyroidism; continue with home dose of levothyroxine 75 MCG daily 3. Asthma; not in exacerbation; continue with home inhaler therapy; hold off on Singulair and Zyrtec till oral intake is established 4. Seasonal ALLERGY; Flonase 1 spray each nostril daily DVT prophylaxis; SCDs CODE STATUS; full code
[2021-03-26] MEDS: SODIUM CHLORIDE 0.9% 1,000 ML IV SCH (20:00)
[2021-03-27] MEDS: KETOROLAC 30 MG/ML 1 ML VIAL IVP PRN ×2 (03:48→11:26)
[2021-03-27] MEDS ORDERED: LEVOTHYROXINE 75 MCG TAB PO SCH (06:30)
[2021-03-27] MEDS: PANTOPRAZOLE 40 MG/10 ML VIAL IVP SCH ×2 (07:38→08:01)
[2021-03-27] MEDS: LACTATED RINGERS 1,000 ML IV SCH (07:39)
[2021-03-27] MEDS: SODIUM CHLORIDE 0.9% 1,000 ML IV SCH ×2 (07:40→11:31)
[2021-03-27 08:52] LABS: Basophils # (A) 0.04 X 10*3/uL (0.00-0.10); Basophils % (A) 0.8 %; Eosinophils # (A) 0.06 X 10*3/uL (0.04-0.35); Eosinophils % (A) 1.2 %; HCT 36.2 % (37.2-46.3); HGB 11.8 g/dL (12.0-15.0); Lymphocytes # (A) 1.08 X 10*3/uL (0.90-5.00); Lymphocytes % (A) 21.6 %; MCHC 32.6 g/dL (32.0-37.0); MCV 92.1 fL (80.0-97.0); Mean Platelet Volume 10.9 fL (9.5-12.2); Monocytes # (A) 0.84 X 10*3/uL (0.20-1.00); Monocytes % (A) 16.8 %; Neutrophils # (A) 2.96 X 10*3/uL (1.80-7.70); Neutrophils % (A) 59.2 %; Platelet Count 288 X 10*3/uL (140-440); RBC 3.93 X 10*6/uL (4.10-5.20); RDW 12.8 % (11.5-14.5)
[2021-03-27 08:57] VITALS: RESP 16
[2021-03-27] MEDS ORDERED: FLUTICASONE 50MCG/SPRAY NASAL 16GM EA NOSTRIL SCH (09:00)
[2021-03-27 09:29] LABS: Amylase 22 U/L (23-121); Lipase 35 U/L (14-63)
[2021-03-27 09:52] LABS: ALT 65 U/L (8-44); AST 17 U/L (13-35); African American GFR (CKD) 120.4 (60.0-200.0); Albumin 3.6 g/dL (3.8-4.9); Albumin/Globulin Ratio 1.75 (1.60-3.17); Alkaline Phosphatase 163 U/L (41-126); BUN/Creat Ratio 11.28 Ratio (12.00-20.00); Bilirubin, Conjugated <0.20 mg/dL (0.20-0.40); Blood Urea Nitrogen 7.6 mg/dL (9.0-27.0); C Reactive Protein <0.30 mg/dL (0.00-0.80); Calcium 8.8 mg/dL (8.7-10.3); Carbon Dioxide 24.1 mmol/L (20.0-27.5); Chloride 109 mmol/L (96-109); Glucose 86 mg/dL (70-110); Non-African American GFR(CKD) 103.9 (60.0-200.0); Potassium 4.1 mmol/L (3.5-5.5); Sodium 142 mmol/L (135-145); Total Protein 5.6 g/dL (6.2-8.2)
--- NOTE | 2021-03-27 11:00 | P.PN ---
Subjective Progress Note Date: 03/27/21 Principal diagnosis: Abdominal pain Patient doing well today. Says her pain is much better. Her liver enzymes are improved. Her amylase and lipase are normal. Objective - Vital Signs Vital signs: Vital Signs Temp 98.0 F 03/27/21 07:00 Pulse 61 03/27/21 07:00 Resp 16 03/27/21 07:00 BP 118/75 03/27/21 07:00 Pulse Ox 99 03/27/21 07:00 Intake & Output 03/26/21 03/27/21 03/27/21 18:59 06:59 18:59 Intake Total 1220 1300 Balance 1220 1300 Weight 80.8 kg Intake: IV 1100 Intake, IV Titration 1100 Amount Sodium Chloride 0.9% 1, 1100 000 ml @ 100 mls/hr IV . Q10H PARAM Rx#:[id number] Oral 120 200 Other: Voiding Method Toilet # Voids 0 1 - Exam Abdomen: Soft, nontender, nondistended - Labs CBC & Chem 7: 03/27/21 06:20 03/27/21 06:20 Labs: Abnormal Lab Results - Last 24 Hours (Table) 03/26/21 03/26/21 03/27/21 Range/Units 12:00 17:15 06:20 RBC (4.10-5.20) X 10*6/uL Hgb (12.0-15.0) g/dL Hct (37.2-46.3) % Anion Gap 9.30 L (10.00-18.00) mmol/L BUN 7.6 L (9.0-27.0) mg/dL BUN/Creatinine Ratio 11.28 L (12.00-20.00) Ratio Glucose 107 H (74-99) mg/dL Conjugated Bilirubin <0.20 L (0.20-0.40) mg/dL ALT 95 H 87 H 65 H (4-34) U/L Alkaline Phosphatase 193 H 182 H 163 H (38-126) U/L Total Protein 5.6 L (6.2-8.2) g/dL Albumin 3.6 L (3.8-4.9) g/dL Amylase 22 L (23-121) U/L 03/27/21 Range/Units 06:20 RBC 3.93 L (4.10-5.20) X 10*6/uL Hgb 11.8 L (12.0-15.0) g/dL Hct 36.2 L (37.2-46.3) % Anion Gap (10.00-18.00) mmol/L BUN (9.0-27.0) mg/dL BUN/Creatinine Ratio (12.00-20.00) Ratio Glucose (74-99) mg/dL Conjugated Bilirubin (0.20-0.40) mg/dL ALT (4-34) U/L Alkaline Phosphatase (38-126) U/L Total Protein (6.2-8.2) g/dL Albumin (3.8-4.9) g/dL Amylase (23-121) U/L Assessment and Plan (1) Choledocholithiasis Narrative/Plan: Patient doing better at this time. Continue advancing diet. August discharge. Current Visit: No Status: Acute Code(s): K80.50 - CALCULUS OF BILE DUCT W/O CHOLANGITIS OR CHOLECYST W/O OBST SNOMED Code(s): 332673785
[2021-03-27 15:25] VITALS: BP 111/74; PULSE 68; TEMP 98.1
== END 2021-03-27 16:41 | disposition home or self-care (01) ==
LOC: ORWHC2ENDO 11:53 → 6NMEDSUR 13:47 → ORWHC2ENDO 03-27 04:45 → 6NMEDSUR 03-27 04:45
PROVIDERS: ADMIT Internal Medicine; ATTEND Internal Medicine
DX: K80.50 Calculus of bile duct without cholangitis or cholecystitis without obstruction (principal); K83.8 Other specified diseases of biliary tract; R74.01 Elevation of levels of liver transaminase levels; E03.9 Hypothyroidism, unspecified; K21.9 Gastro-esophageal reflux disease without esophagitis; N83.209 Unspecified ovarian cyst, unspecified side; I38 Endocarditis, valve unspecified; J45.909 Unspecified asthma, uncomplicated; F90.9 Attention-deficit hyperactivity disorder, unspecified type; Z20.822 Contact with and (suspected) exposure to COVID-19; Z79.890 Hormone replacement therapy; Z79.899 Other long term (current) drug therapy; Z90.49 Acquired absence of other specified parts of digestive tract; Z83.49 Family history of other endocrine, nutritional and metabolic diseases; Z82.49 Family history of ischemic heart disease and other diseases of the circulatory system
CPT/HCPCS: 80053 ×2; 80048; 80076 ×2; 82150; 83690 ×2; 85025 ×2; 85610; 86140 ×2; 84145; 87635; 74330; 43277; 43262; G0378; J1956; J2001; J3010; J1885 ×2; J2704; C9113

== ENCOUNTER → 2023-05-03 | Outpatient (CLI) | payer OTHER ==
--- NOTE | 2023-05-03 16:14 | XR ---
EXAMINATION TYPE: XR cervical spine comp DATE OF EXAM: 05/03/2023 3:35 PM CLINICAL INDICATION:Female, 52 years old with history of M5030,M542 CDD,CERVICALGIA; [facility] COMPARISON: None TECHNIQUE: The cervical spine was imaged in frontal, lateral, odontoid and bilateral oblique. FINDINGS: The osseous structures show normal alignment without evidence of an acute fracture. There are osteoph ytes noted throughout the cervical spine on the anterior and lateral aspects of the vertebral bodies. The intervertebral disk spaces are narrowed at multiple levels. Pedicles are intact. Soft tissues a re within normal limits. The odontoid appears intact. IMPRESSION: 1. No fracture or dislocation. 2. Mild degenerative disc disease changes of the cervical spine.
== END | disposition home or self-care (01) ==
LOC: RADXRYALE 15:15
PROVIDERS: ATTEND Physician Assistant Medical
DX: M50.30 Other cervical disc degeneration, unspecified cervical region (principal)
CPT/HCPCS: 72050

== ENCOUNTER → 2023-10-27 | Outpatient (CLI) | payer SELFPAY ==
--- NOTE | 2023-10-27 11:18 | US ---
EXAMINATION TYPE: US venous doppler duplex LE RT DATE OF EXAM: 10/27/2023 10:51 AM COMPARISON: NONE CLINICAL INDICATION: Female, 53 years old with history of I80.9 PHLEBITIS AND THROMBOPHLEBITIS OF UNS PECIFIE; Right knee pain. No hx of DVT. Not on blood thinners SIDE PERFORMED: Right TECHNIQUE: The lower extremity deep venous system is examined utilizing real time linear array sonog renetta with graded compression, doppler sonography and color-flow sonography. VESSELS IMAGED: Common Femoral Vein Deep Femoral Vein Greater Saphenous Vein * Femoral Vein Popliteal Vein Small Saphenous Vein * Proximal Calf Veins (* superficial vessels) Right Leg: No evidence for DVT IMPRESSION: No evidence for DVT within the right lower extremity imaged from the groin to the upper calf.
== END | disposition home or self-care (01) ==
LOC: RADUSWWP 10:50
PROVIDERS: ATTEND Orthopaedic Surgery
DX: I80.9 Phlebitis and thrombophlebitis of unspecified site (principal); M17.11 Unilateral primary osteoarthritis, right knee

== ENCOUNTER 2024-07-15 19:00 | Observation (INO) | payer OTHER ==
--- NOTE | 2024-07-15 19:17 | ED ---
Abdominal Pain HPI - General Chief Complaint: Abdominal Pain Stated Complaint: R sided abd pain Time Seen by Provider: 07/15/24 19:06 Source: patient, RN notes reviewed Mode of arrival: ambulatory Limitations: no limitations - History of Present Illness Initial Comments: This is a 54-year-old female with a history of GERD and asthma presenting to emergency department for complaint of right lower quadrant abdominal pain that started yesterday afternoon. Patient states the pain has been localized in the lower part of her abdomen. She thought that she may have been constipated which she took milk of magnesia with multiple bowel movements or pain has persisted. Endorses intermittent nausea with the pain. Denies radiation of pain. Denies hematochezia, melena, urinary complaints. Denies chest pain, difficulty breathing, fevers or chills. Previous cholecystectomy. - Related Data Home Medications Medication Instructions Recorded Confirmed Cetirizine HCl [Zyrtec] 10 mg PO DAILY 11/25/19 03/26/21 Dextroamphetamine/Amphetamine 30 mg PO DAILY PRN 11/25/19 03/26/21 [Adderall Xr] Fluticasone Nasal [place] [Flonase 1 spr EA NOSTRIL DAILY 11/25/19 03/26/21 Nasal [place]] Levothyroxine Sodium [Synthroid] 75 mcg PO DAILY 11/25/19 03/26/21 Montelukast Sodium [Singulair] 10 mg PO HS 11/25/19 03/26/21 Albuterol Sulfate [Proair Hfa] 1 - 2 puff INHALATION RT-Q6H PRN 03/20/21 03/26/21 Ibuprofen [Motrin Ib] 800 mg PO Q8H PRN 03/20/21 03/26/21 L.acidoph,Paracasei, B.lactis 1 cap PO DAILY 03/20/21 03/26/21 [Probiotic] Omeprazole Magnesium [PriLOSEC OTC] 20 mg PO DAILY 03/20/21 03/26/21 Allergies Allergy/AdvReac Type Severity Reaction Status Date / Time No Known Allergies Allergy Verified 03/26/21 12:22 Review of Systems ROS Statement: Those systems with pertinent positive or pertinent negative responses have been documented in the HPI. ROS Other: All systems not noted in ROS Statement are negative. Past Medical History Past Medical History: Asthma, GERD/Reflux, Thyroid Disorder Additional Past Medical History / Comment(s): Patient states she a leaky heart valve and ovarian cyst. History of Any Multi-Drug Resistant Organisms: None Reported Past Surgical History: Cholecystectomy Past Anesthesia/Blood Transfusion Reactions: No Reported Reaction Additional Past Anesthesia/Blood Transfusion Reaction / Comment(s): Pt. has never received blood products Past Psychological History: No Psychological Hx Reported Smoking Status: Never smoker Past Alcohol Use History: Occasional Past Drug Use History: None Reported - Past Family History Father Family Medical History: AFIB, AICD/Pacemaker Mother Family Medical History: Thyroid Disorder General Exam Limitations: no limitations General appearance: alert, in no apparent distress Neck exam: Present: normal inspection. Absent: tenderness, meningismus, lymphadenopathy Respiratory exam: Present: normal lung sounds bilaterally. Absent: respiratory distress, wheezes, rales, rhonchi, stridor Cardiovascular Exam: Present: regular rate, normal rhythm, normal heart sounds. Absent: systolic murmur, diastolic murmur, rubs, gallop, clicks GI/Abdominal exam: Present: soft, tenderness (RLQ), normal bowel sounds. Absent: distended, guarding, rebound, rigid, diminished bowel sounds Expanded GI/Abdominal exam: Present: tenderness at McBurney's Point. Absent: psoas sign, obturator sign, Momin's sign, Rovsing's sign Extremities exam: Present: normal inspection, full ROM, normal capillary refill. Absent: tenderness, pedal edema, joint swelling, calf tenderness Back exam: Present: normal inspection. Absent: CVA tenderness (R), CVA tenderness (L) Course Vital Signs 07/15/24 19:02 Temperature 97.9 F Pulse Rate 89 Respiratory 20 Rate Blood Pressure 159/88 O2 Sat by Pulse 100 Oximetry Medical Decision Making - Medical Decision Making Was pt. sent in by a medical professional or institution (, PA, EQUITY HOLDER, urgent care, hospital, or [facility]...) When possible be specific @ -No Did you speak to anyone other than the patient for history (EMS, parent, family, police, friend...)? What history was obtained from this source @ -No Did you review nursing and triage notes (agree or disagree)? Why? @ -I reviewed and agree with nursing and triage notes Were old charts reviewed (outside hosp., previous admission, EMS record, old EKG, old radiological studies, urgent care reports/EKG's, [facility] records)? Report findings @ -No old charts were reviewed Differential Diagnosis (chest pain, altered mental status, abdominal pain women, abdominal pain men, vaginal bleeding, weakness, fever, dyspnea, syncope, headache, dizziness, GI bleed, back pain, seizure, CVA, palpatations, mental health, musculoskeletal)? @ -Differential Abdominal Pain Women: Appendicitis, Cholecystitis, diverticulosis, ischemic bowel, pancreatitis, hepatitis, UTI, gastroenteritis, AAA, incarcerated hernia, bowel obstruction, constipation, inflammatory bowel, hepatitis, peptic ulcer disease, splenic infarction, perforated viscus, vulvitis, ovarian torsion, PID, kidney stone, placenta abruption, this is not meant to be an all-inclusive list EKG interpreted by me (3pts min.). @ -None X-rays interpreted by me (1pt min.). @ -None done CT interpreted by me (1pt min.). @ -CT of the abdomen pelvis with IV contrast reveals acute uncomplicated appendicitis with no evidence for organizing fluid collection, appendix is thickened up to 12 mm with fat stranding changes around the lumen U/S interpreted by me (1pt. min.). @ -None done What testing was considered but not performed or refused? (CT, X-rays, U/S, labs)? Why? @ -None What meds were considered but not given or refused? Why? @ -None Did you discuss the management of the patient with other professionals (professionals i.e. , PA, EQUITY HOLDER, lab, RT, psych nurse, social service agency director, production crew supervisor, teacher, homicide squad commanding officer, telehealth case manager)? Give summary @ -Spoke with on-call general surgeon, Dr. Bourgeois, in regard to CT imaging findings concerning for acute uncomplicated appendicitis. Recommend that patient be admitted and placed on n.p.o. status at midnight. Was smoking cessation discussed for >3mins.? @ -No Was critical care preformed (if so, how long)? @ -No Were there social determinants of health that impacted care today? How? (Homelessness, low income, unemployed, alcoholism, drug addiction, transportation, low edu. Level, literacy, decrease access to med. care, prison, rehab)? @ -No Was there de-escalation of care discussed even if they declined (Discuss DNR or withdrawal of care, Hospice)? DNR status @ -No What co-morbidities impacted this encounter? (DM, HTN, Smoking, COPD, CAD, Cancer, CVA, ARF, Chemo, Hep., AIDS, mental health diagnosis, sleep apnea, morbid obesity)? @ -None Was patient admitted / discharged? Hospital course, mention meds given and route, prescriptions, significant lab abnormalities, going to OR and other pe rtinent info. @ - admitted. 54 year old female presenting with right lower quadrant abdominal pain. Patient has pain over McBurney's point. Negative Rovsing's or psoas signs. He is read with dose of morphine evaluated via laboratory imaging and CT of the abdomen pelvis. Laboratory test including CBC, CMP, urinalysis unremarkable. CT concerning for acute complicated appendicitis. Spoke with general surgeon was agreed to admission with n.p.o. status at midnight. Patient started on IV Unasyn. Case discussed with Dr. Worthington Undiagnosed new problem with uncertain prognosis? @ -No Drug Therapy requiring intensive monitoring for toxicity (Heparin, Nitro, Insulin, Cardizem)? @ -No Were any procedures done? @ -No Diagnosis/symptom? @ -appendicitis Acute, or Chronic, or Acute on Chronic? @ -acute Uncomplicated (without systemic symptoms) or Complicated (systemic symptoms)? @ -uncomplicated Side effects of treatment? @ -No Exacerbation, Progression, or Severe Exacerbation? @ -No Poses a threat to life or bodily function? How? (Chest pain, [place], [place], pneumonia, PE, COPD, DKA, ARF, appy, cholecystitis, CVA, Diverticulitis, Homicidal, Suicidal, threat to staff... and all critical care pts) @ -No - Lab Data Result diagrams: 07/15/24 20:00 07/15/24 20:00 Lab Results 07/15/24 07/15/24 07/15/24 Range/Units 19:57 20:00 20:00 WBC 9.0 (3.8-10.6) k/uL RBC 4.41 (3.80-5.40) m/uL Hgb 13.3 (11.4-16.0) gm/dL Hct 39.8 (34.0-46.0) % MCV 90.2 (80.0-100.0) fL MCH 30.1 (25.0-35.0) pg MCHC 33.4 (31.0-37.0) g/dL RDW 13.3 (11.5-15.5) % Plt Count 308 (150-450) k/uL MPV 7.4 Neutrophils % 67 % Lymphocytes % 22 % Monocytes % 6 % Eosinophils % 2 % Basophils % 1 % Neutrophils # 6.0 (1.3-7.7) k/uL Lymphocytes # 2.0 (1.0-4.8) k/uL Monocytes # 0.6 (0-1.0) k/uL Eosinophils # 0.2 (0-0.7) k/uL Basophils # 0.1 (0-0.2) k/uL Sodium 137 (137-145) mmol/L Potassium 3.9 (3.5-5.1) mmol/L Chloride 99 (98-107) mmol/L Carbon Dioxide 28 (22-30) mmol/L Anion Gap 10 mmol/L BUN 9 (7-17) mg/dL Creatinine 0.57 (0.52-1.04) mg/dL Est GFR (CKD-EPI)AfAm >90 (>60 ml/min/1.73 sqM) Est GFR (CKD-EPI)NonAf >90 (>60 ml/min/1.73 sqM) Glucose 104 H (74-99) mg/dL Plasma Lactic Acid [place] (0.7-2.0) mmol/L Calcium 10.1 (8.4-10.2) mg/dL Total Bilirubin 0.8 (0.2-1.3) mg/dL AST 22 (14-36) U/L ALT 22 (4-34) U/L Alkaline Phosphatase 144 H (38-126) U/L Total Protein 7.7 (6.3-8.2) g/dL Albumin 4.7 (3.5-5.0) g/dL Lipase 116 (23-300) U/L Urine Color Colorless Urine Appearance Clear (Clear) Urine pH 6.0 (5.0-8.0) Ur Specific [place] 1.003 (1.001-1.035) Urine Protein Negative (Negative) Urine Glucose (UA) Negative (Negative) Urine Ketones Negative (Negative) Urine Blood Negative (Negative) Urine Nitrite Negative (Negative) Urine Bilirubin Negative (Negative) Urine Urobilinogen <2.0 (<2.0) mg/dL Ur Leukocyte Esterase Small H (Negative) Urine RBC 1 (0-5) /hpf Urine WBC 1 (0-5) /hpf Ur Squamous Epith Cells 1 (0-4) /hpf Urine Bacteria Rare H (None) /hpf Urine Mucus Rare H (None) /hpf 07/15/24 Range/Units 20:28 WBC (3.8-10.6) k/uL RBC (3.80-5.40) m/uL Hgb (11.4-16.0) gm/dL Hct (34.0-46.0) % MCV (80.0-100.0) fL MCH (25.0-35.0) pg MCHC (31.0-37.0) g/dL RDW (11.5-15.5) % Plt Count (150-450) k/uL MPV Neutrophils % % Lymphocytes % % Monocytes % % Eosinophils % % Basophils % % Neutrophils # (1.3-7.7) k/uL Lymphocytes # (1.0-4.8) k/uL Monocytes # (0-1.0) k/uL Eosinophils # (0-0.7) k/uL Basophils # (0-0.2) k/uL Sodium (137-145) mmol/L Potassium (3.5-5.1) mmol/L Chloride (98-107) mmol/L Carbon Dioxide (22-30) mmol/L Anion Gap mmol/L BUN (7-17) mg/dL Creatinine (0.52-1.04) mg/dL Est GFR (CKD-EPI)AfAm (>60 ml/min/1.73 sqM) Est GFR (CKD-EPI)NonAf (>60 ml/min/1.73 sqM) Glucose (74-99) mg/dL Plasma Lactic Acid [place] 0.8 (0.7-2.0) mmol/L Calcium (8.4-10.2) mg/dL Total Bilirubin (0.2-1.3) mg/dL AST (14-36) U/L ALT (4-34) U/L Alkaline Phosphatase (38-126) U/L Total Protein (6.3-8.2) g/dL Albumin (3.5-5.0) g/dL Lipase (23-300) U/L Urine Color Urine Appearance (Clear) Urine pH (5.0-8.0) Ur Specific [place] (1.001-1.035) Urine Protein (Negative) Urine Glucose (UA) (Negative) Urine Ketones (Negative) Urine Blood (Negative) Urine Nitrite (Negative) Urine Bilirubin (Negative) Urine Urobilinogen (<2.0) mg/dL Ur Leukocyte Esterase (Negative) Urine RBC (0-5) /hpf Urine WBC (0-5) /hpf Ur Squamous Epith Cells (0-4) /hpf Urine Bacteria (None) /hpf Urine Mucus (None) /hpf Disposition Clinical Impression: Appendicitis Disposition: ADMITTED IP TO THIS [facility] Condition: Stable Decision to Admit Reason: Admit from EC Decision Date: 07/15/24 Decision Time: 21:36
[2024-07-15] MEDS: MORPHINE SULFATE 4 MG/ML SYRINGE IVP STA (20:05)
[2024-07-15 20:08] LABS: Basophils # (A) 0.1 k/uL (0-0.2); Basophils % (A) 1 %; Eosinophils # (A) 0.2 k/uL (0-0.7); Eosinophils % (A) 2 %; HCT 39.8 % (34.0-46.0); HGB 13.3 gm/dL (11.4-16.0); Lymphocytes % (A) 22 %; MCH 30.1 pg (25.0-35.0); MCHC 33.4 g/dL (31.0-37.0); MCV 90.2 fL (80.0-100.0); Mean Platelet Volume 7.4; Monocytes # (A) 0.6 k/uL (0-1.0); Monocytes % (A) 6 %; Neutrophils % (A) 67 %; Platelet Count 308 k/uL (150-450); RBC 4.41 m/uL (3.80-5.40); RDW 13.3 % (11.5-15.5)
[2024-07-15 20:20] LABS: Appearance,Urine Clear (Clear); Bacteria,Urine Rare /hpf; Bilirubin,Urine Negative (Negative); Blood,Urine Negative (Negative); Color,Urine Colorless; Glucose,Urine (UA) Negative (Negative); Ketones,Urine Negative (Negative); Leukocyte Esterase,Urine Small (Negative); Mucus,Urine Rare /hpf; Nitrite,Urine Negative (Negative); Protein,Urine Negative (Negative); RBC,Urine 1 /hpf (0-5); Specific Gravity,Urine 1.003 (1.001-1.035); Squamous Epithelial Cell,Urine 1 /hpf (0-4); Urobilinogen,Urine <2.0 mg/dL (<2.0); WBC,Urine 1 /hpf (0-5)
[2024-07-15 20:21] LABS: ALT 22 U/L (4-34); AST 22 U/L (14-36); African American GFR (CKD) >90 (>60 ml/min/1.73 sqM); Albumin 4.7 g/dL (3.5-5.0); Alkaline Phosphatase 144 U/L (38-126); Anion Gap 10 mmol/L; Blood Urea Nitrogen 9 mg/dL (7-17); Calcium 10.1 mg/dL (8.4-10.2); Carbon Dioxide 28 mmol/L (22-30); Chloride 99 mmol/L (98-107); Glucose 104 mg/dL (74-99); Lipase 116 U/L (23-300); Non-African American GFR(CKD) >90 (>60 ml/min/1.73 sqM); Potassium 3.9 mmol/L (3.5-5.1); Sodium 137 mmol/L (137-145); Total Bilirubin 0.8 mg/dL (0.2-1.3); Total Protein 7.7 g/dL (6.3-8.2)
--- NOTE | 2024-07-15 21:25 | CT ---
EXAMINATION TYPE: CT abdomen pelvis w con DATE OF EXAM: 07/15/2024 8:46 PM COMPARISON: 11/24/2019 CLINICAL INDICATION: Female, 54 years old with history of RLQ ab pain; RLQ abdominal pain x 1 day TECHNIQUE: Axial CT abdomen pelvis w con;Sagittal and coronal reformats were created on a separate w orkstation. Contrast used:100 ml mL of Isovue 300 with IV Contrast, (none if empty) Oral contrast used: without Oral Contrast (none if empty) CT DLP: 1272.3 mGycm, Automated exposure control for dose reduction was used. FINDINGS: LOWER CHEST: Unremarkable ABDOMEN LIVER: Unremarkable GALLBLADDER AND BILE DUCTS: The gallbladder is surgically absent. PANCREAS: Unremarkable. SPLEEN: Unremarkable. ADRENAL GLANDS: Unremarkable. KIDNEYS AND URETERS: No evidence of hydronephrosis or renal calculus. The ureters are unremarkable. PELVIS BLADDER: No evidence for wall thickening or mass given limitations of exam. REPRODUCTIVE: Unremarkable. ABDOMEN & PELVIS STOMACH AND BOWEL: No evidence of bowel obstruction. Appendix is thickened up to 12 mm with fat stran ding changes around the lumen. No evidence for perforation at this time. Scattered colonic diverticul a. PERITONEUM/RETROPERITONEUM: No evidence of pneumoperitoneum or free fluid. VASCULATURE: No evidence of aortic aneurysm. MUSCULOSKELETAL: No acute osseous abnormalities. Mild disc degeneration changes are present throughou t the thoracolumbar spine. Grade 1 anterolisthesis of L4 and L5. LYMPH NODES: No gross evidence for lymphadenopathy. SOFT TISSUE/ABDOMINAL WALL: Tiny fat-containing umbilical hernia. IMPRESSION: 1. Acute uncomplicated appendicitis. No evidence for organizing fluid collection. 2. Colonic diverticulosis. 3. Tiny fat-containing umbilical hernia. [facility], , 07/15/2024 9:23 PM
[2024-07-15] MEDS ORDERED: IBUPROFEN 400 MG TAB PO PRN (21:36)
[2024-07-15] MEDS ORDERED: NALOXONE 0.4 MG/ML 1 ML VIAL IV PRN (21:36)
[2024-07-15] MEDS: ONDANSETRON 4 MG/2 ML VIAL IVP PRN (21:52)
[2024-07-15] MEDS: PIPERACILLIN-TAZOBACTAM 3.375 GM in SODIUM CHLORIDE 0.9% 100 ML IVPB SCH (21:52)
[2024-07-15] MEDS: MORPHINE SULFATE 4 MG/ML SYRINGE IV PRN (23:58)
[2024-07-16] MEDS: D5-0.45% NACL WITH KCL 20MEQ/L 1,000 ML IV SCH (00:42)
[2024-07-16 04:55] LABS: Basophils # (A) 0.1 k/uL (0-0.2); Basophils % (A) 1 %; Eosinophils # (A) 0.3 k/uL (0-0.7); Eosinophils % (A) 4 %; HCT 35.1 % (34.0-46.0); HGB 11.5 gm/dL (11.4-16.0); Lymphocytes # (A) 1.9 k/uL (1.0-4.8); Lymphocytes % (A) 28 %; MCH 30.3 pg (25.0-35.0); MCHC 32.9 g/dL (31.0-37.0); MCV 92.2 fL (80.0-100.0); Mean Platelet Volume 7.6; Monocytes # (A) 0.7 k/uL (0-1.0); Monocytes % (A) 10 %; Neutrophils # (A) 3.6 k/uL (1.3-7.7); Neutrophils % (A) 53 %; Platelet Count 260 k/uL (150-450); RBC 3.81 m/uL (3.80-5.40); RDW 13.5 % (11.5-15.5); WBC 6.8 k/uL (3.8-10.6)
[2024-07-16 05:15] LABS: ALT 18 U/L (4-34); AST 18 U/L (14-36); African American GFR (CKD) >90 (>60 ml/min/1.73 sqM); Albumin 3.5 g/dL (3.5-5.0); Alkaline Phosphatase 112 U/L (38-126); Anion Gap 3 mmol/L; Blood Urea Nitrogen 12 mg/dL (7-17); Carbon Dioxide 30 mmol/L (22-30); Chloride 101 mmol/L (98-107); Glucose 99 mg/dL (74-99); Non-African American GFR(CKD) >90 (>60 ml/min/1.73 sqM); Potassium 4.3 mmol/L (3.5-5.1); Sodium 134 mmol/L (137-145); Total Bilirubin 0.7 mg/dL (0.2-1.3)
[2024-07-16] MEDS: ACETAMINOPHEN TAB 325 MG TAB PO PRN (11:26)
--- NOTE | 2024-07-16 11:57 | P.GSHP ---
History of Present Illness H&P Date: 07/16/24 CHIEF COMPLAINT: Abdominal pain HISTORY OF PRESENT ILLNESS: This is a 54-year-old female who presented to the hospital with complaints of right lower quadrant abdominal pain that started yesterday morning. Patient does report pain along the right side of the abdomen and the umbilicus area as well. She also reports having nausea and vomiting. She denies any fever chills or sweats. She does feel little bloated. She had a CT scan abdomen pelvis that reported an uncomplicated appendicitis. Patient's past surgical history does include a cholecystectomy. PAST MEDICAL HISTORY: Asthma mild mitral regurgitation and mild tricuspid regurgitation PAST SURGICAL HISTORY: See below MEDICATIONS: See below ALLERGIES: See below SOCIAL HISTORY: No illicit drug use. REVIEW OF SYSTEMS: CONSTITUTIONAL: Denies fever or chills. HEENT: Denies blurred vision, vision changes, or eye pain. Denies hemoptysis CARDIOVASCULAR: Denies chest pain or pressure. RESPIRATORY: No shortness of breath. GASTROINTESTINAL: See HPI for pertinent findings HEMATOLOGIC: Denies bleeding disorders. GENITOURINARY: Denies any blood in urine or increased urinary frequency. SKIN: Denies pruitis. Denies rash. PHYSICAL EXAM: VITAL SIGNS: Reviewed GENERAL: Well-developed in no acute distress. HEENT: No sclera icterus. Extraocular movements grossly intact. Moist buccal mucosa. Head is atraumatic, normocephalic. No nasal drainage. ABDOMEN: Soft. Nondistended. Tenderness with palpation to right lower q uadrant, umbilicus and right side of abdomen NEUROLOGIC: Alert and oriented. Cranial nerves II through XII grossly intact. LABORATORY DATA: WBC 6.8 Hgb 11.5 platelets 260 Sodium 134 potassium is 4.3 creatinine 0.69 Lactic acid 0.8 Urine hCG not detected IMAGING: CT scan abdomen pelvis reports acute uncomplicated appendicitis. No evidence for organizing fluid collection. Colonic diverticulosis. Tiny fat-containing umbilical hernia ASSESSMENT: 1. Acute appendicitis PLAN: -Patient scheduled for laparoscopic appendectomy today with Dr. Bourgeois -Keep patient n.p.o. -Continue antibiotics -Continue pain medication as needed and antiemetics Physician Radio Installer note has been reviewed by physician. Signing provider agrees with the documented findings, assessment, and plan of care. I have personally seen and examined the patient, reviewed the WOOD SKI MAKER /PAs history, exam and MDM and agree with the assessment and plan as written. Based on total visit time, I have performed more than 50% of the visit. As above: Patient with acute appendicitis. Discussed surgical and nonsurgical options in detail. Will proceed with laparoscopic, possible open appendectomy at this time. Risks of bleeding, infection, leak, abscess, hernia, conversion to an open procedure, bladder bowel and ureteral injury reviewed. She understands and wishes to proceed. Past Medical History Past Medical History: Asthma, GERD/Reflux, Thyroid Disorder Additional Past Medical History / Comment(s): Patient states she a leaky heart valve and ovarian cyst. History of Any Multi-Drug Resistant Organisms: None Reported Past Surgical History: Cholecystectomy Past Anesthesia/Blood Transfusion Reactions: No Reported Reaction Additional Past Anesthesia/Blood Transfusion Reaction / Comment(s): Pt. has never received blood products Past Psychological History: No Psychological Hx Reported Smoking Status: Never smoker Past Alcohol Use History: Occasional Past Drug Use History: None Reported - Past Family History Father Family Medical History: AFIB, AICD/Pacemaker Mother Family Medical History: Thyroid Disorder Medications and Allergies Home Medications Medication Instructions Recorded Confirmed Type Dextroamphetamine/Amphetamine 30 mg PO DAILY 07/16/24 07/16/24 History [Adderall Xr 30 mg Capsule] Levothyroxine Sodium [Synthroid] 100 mcg PO DAILY 07/16/24 07/16/24 History Loratadine [Claritin] 10 mg PO DAILY PRN 07/16/24 07/16/24 History Naproxen [Naprosyn] 500 mg PO BID PRN 07/16/24 07/16/24 History oxyBUTYnin chloride [oxyBUTYnin 5 mg PO DAILY 07/16/24 07/16/24 History chloride ER] Allergies Allergy/AdvReac Type Severity Reaction Status Date / Time No Known Allergies Allergy Verified 07/16/24 07:26 Surgical - Exam Vital Signs Temp Pulse Resp BP Pulse Ox 97.9 F 89 20 159/88 100 07/15/24 19:02 07/15/24 19:02 07/15/24 19:02 07/15/24 19:02 07/15/24 19:02 Results - Labs 07/16/24 04:22 07/16/24 04:22 Abnormal Lab Results - Last 24 Hours (Table) 07/15/24 07/15/24 07/16/24 Range/Units 19:57 20:00 04:22 Sodium 134 L (137-145) mmol/L Glucose 104 H (74-99) mg/dL Alkaline Phosphatase 144 H (38-126) U/L Total Protein 6.0 L (6.3-8.2) g/dL Ur Leukocyte Esterase Small H (Negative) Urine Bacteria Rare H (None) /hpf Urine Mucus Rare H (None) /hpf Diabetes panel 07/15/24 07/16/24 Range/Units 20:00 04:22 Sodium 137 134 L (137-145) mmol/L Potassium 3.9 4.3 (3.5-5.1) mmol/L Chloride 99 101 (98-107) mmol/L Carbon Dioxide 28 30 (22-30) mmol/L BUN 9 12 (7-17) mg/dL Creatinine 0.57 0.69 (0.52-1.04) mg/dL Glucose 104 H 99 (74-99) mg/dL Calcium 10.1 9.0 (8.4-10.2) mg/dL AST 22 18 (14-36) U/L ALT 22 18 (4-34) U/L Alkaline Phosphatase 144 H 112 (38-126) U/L Total Protein 7.7 6.0 L (6.3-8.2) g/dL Albumin 4.7 3.5 (3.5-5.0) g/dL Calcium panel 07/15/24 07/16/24 Range/Units 20:00 04:22 Calcium 10.1 9.0 (8.4-10.2) mg/dL Albumin 4.7 3.5 (3.5-5.0) g/dL Pituitary panel 07/15/24 07/16/24 Range/Units 20:00 04:22 Sodium 137 134 L (137-145) mmol/L Potassium 3.9 4.3 (3.5-5.1) mmol/L Chloride 99 101 (98-107) mmol/L Carbon Dioxide 28 30 (22-30) mmol/L BUN 9 12 (7-17) mg/dL Creatinine 0.57 0.69 (0.52-1.04) mg/dL Glucose 104 H 99 (74-99) mg/dL Calcium 10.1 9.0 (8.4-10.2) mg/dL Adrenal panel 07/15/24 07/16/24 Range/Units 20:00 04:22 Sodium 137 134 L (137-145) mmol/L Potassium 3.9 4.3 (3.5-5.1) mmol/L Chloride 99 101 (98-107) mmol/L Carbon Dioxide 28 30 (22-30) mmol/L BUN 9 12 (7-17) mg/dL Creatinine 0.57 0.69 (0.52-1.04) mg/dL Glucose 104 H 99 (74-99) mg/dL Calcium 10.1 9.0 (8.4-10.2) mg/dL Total Bilirubin 0.8 0.7 (0.2-1.3) mg/dL AST 22 18 (14-36) U/L ALT 22 18 (4-34) U/L Alkaline Phosphatase 144 H 112 (38-126) U/L Total Protein 7.7 6.0 L (6.3-8.2) g/dL Albumin 4.7 3.5 (3.5-5.0) g/dL
[2024-07-16] MEDS: IV FLUID CONTINUATION 1,000 ML IV ONE (12:13)
[2024-07-16] MEDS: METOCLOPRAMIDE 5 MG/ML 2 ML VIAL IVP STA (12:55)
[2024-07-16] MEDS: HEPARIN SODIUM,PORCINE 5,000 UNIT/ML 1 ML VIAL SQ STA (13:01)
[2024-07-16] MEDS: LACTATED RINGERS 1,000 ML IV ONE ×2 (13:06→13:56)
[2024-07-16] MEDS ORDERED: fentaNYL (PF) 50 MCG/ML 2 ML AMP ONE (13:13)
[2024-07-16] MEDS ORDERED: GLYCOPYRROLATE 0.2 MG/ML 2 ML VIAL ONE (13:13)
[2024-07-16] MEDS ORDERED: NEOSTIGMINE 1 MG/ML 10 ML VIAL ONE (13:13)
[2024-07-16] MEDS ORDERED: LIDOCAINE 1% INJ 10MG/ML (20 ML MDV) ONE (13:13)
[2024-07-16] MEDS ORDERED: SUCCINYLCHOLINE CHLORIDE 200 MG/10 ML VIAL IV ONE (13:13)
[2024-07-16] MEDS ORDERED: PROPOFOL 10 MG/ML 20 ML VIAL IV ONE (13:13)
[2024-07-16] MEDS ORDERED: PHENYLEPHRINE 10 MG/ML VIAL ONE (13:13)
[2024-07-16] MEDS ORDERED: MIDAZOLAM 2 MG/2 ML VIAL ONE (13:13)
[2024-07-16] MEDS ORDERED: ROCURONIUM 10 MG/ML (5 ML VIAL) IV ONE (13:13)
[2024-07-16] MEDS: ceFAZolin 1,000 MG VIAL MISCELLANE ONE (13:31)
[2024-07-16] MEDS: BUPIVACAINE (PF) 0.25% 30 ML VIAL SQ ONE ×2 (13:35)
[2024-07-16] MEDS: HYDROmorphone 0.5 MG/0.5 ML SYRINGE IVP STA (14:20)
[2024-07-16] MEDS: HEPARIN SODIUM,PORCINE 5,000 UNIT/ML 1 ML VIAL SQ SCH (16:24)
[2024-07-16 21:49] VITALS: RESP 16
[2024-07-16] MEDS: HYDROcodone/APAP 5-325MG 1 EACH TAB PO PRN (22:08)
--- NOTE | 2024-07-17 12:53 | P.DS ---
Providers Date of admission: 07/15/24 21:38 Expected date of discharge: 07/17/24 Attending physician: Vidal Bourgeois Primary care physician: Manoj Mendez [facility] Course: Discharge diagnosis 1. Acute appendicitis Hospital course This is a 54-year-old female who presented to the hospital with complaints of right lower quadrant abdominal pain. CT scan had reported an uncomplicated appendicitis. Patient is status post laparoscopic appendectomy. She tolerated surgery well. Her pain is controlled. She is tolerating diet. She has been up and ambulating. She is having flatus. Denies any difficulty urinating. She is afebrile. She is stable for discharge. Please refer to chart for any further details. Physician Animal [facility] Office Supervisor note has been reviewed by physician. Signing provider agrees with the documented findings, assessment, and plan of care. Patient Condition at Discharge: Stable Plan - Discharge Summary Discharge Rx Participant: No New Discharge Prescriptions: New HYDROcodone/APAP 5-325MG [[place] 5-325] 1 tab PO Q6HR PRN 3 Days #12 tab PRN Reason: Pain Continue oxyBUTYnin chloride [oxyBUTYnin chloride ER] 5 mg PO DAILY Naproxen [Naprosyn] 500 mg PO BID PRN PRN Reason: Pain Levothyroxine Sodium [Synthroid] 100 mcg PO DAILY Dextroamphetamine/Amphetamine [Adderall Xr 30 mg Capsule] 30 mg PO DAILY Loratadine [Claritin] 10 mg PO DAILY PRN PRN Reason: Allergy Symptoms Discharge Medication List Dextroamphetamine/Amphetamine [Adderall Xr 30 mg Capsule] 30 mg PO DAILY 07/16/24 [History] HYDROcodone/APAP 5-325MG [[place] 5-325] 1 tab PO Q6HR PRN 3 Days #12 tab 07/16/24 [Rx] Levothyroxine Sodium [Synthroid] 100 mcg PO DAILY 07/16/24 [History] Loratadine [Claritin] 10 mg PO DAILY PRN 07/16/24 [History] Naproxen [Naprosyn] 500 mg PO BID PRN 07/16/24 [History] oxyBUTYnin chloride [oxyBUTYnin chloride ER] 5 mg PO DAILY 07/16/24 [History] Follow up Appointment(s)/Referral(s): Vidal Bourgeois MD [Medical Doctor] - 1 Week McPhilimy,Manoj, DO [Primary Care Provider] - 1-2 days Activity/Diet/Wound Care/Special Instructions: No driving while taking [place] No lifting over 10 pounds You may shower. No soaking or tub baths for 2 weeks Very light activity until you are reevaluated at your follow up appointment with your surgeon Discharge Disposition: HOME SELF-CARE
[2024-07-17 16:28] VITALS: BP 100/58; PULSE 77; TEMP 97.9
== END 2024-07-17 18:23 | disposition home or self-care (01) ==
LOC: EC 19:00 → 6NMEDSUR 21:38
PROVIDERS: ADMIT Surgery; ATTEND Surgery
DX: K35.80 Unspecified acute appendicitis (principal); J45.909 Unspecified asthma, uncomplicated; K21.9 Gastro-esophageal reflux disease without esophagitis; E03.9 Hypothyroidism, unspecified; M41.9 Scoliosis, unspecified; Z79.890 Hormone replacement therapy; Z79.899 Other long term (current) drug therapy; Z90.49 Acquired absence of other specified parts of digestive tract
CPT/HCPCS: 96376 ×2; 96365; 96366; 96372 ×2; 96375; 99285; 36415; 81025 ×2; 88304; 80053 ×2; 83605; 83690; 85025 ×2; 81001; 74177; 44970; G0378 ×3; J2543 ×3; J2250; J0330; J2270; J1644 ×2; J2710; J2765; J2405 ×2; J0690; J2003; J3010; J2704; J1171; Q9967; J2371; J0665; J1596